=== PATIENT | male | born 1960 ===

== ENCOUNTER 2020-10-22 19:52 | Inpatient (IN) | payer OTHER ==
[2020-10-22] MEDS ORDERED: REMDESIVIR 200 MG in Sodium Chloride 0.9% 250 ML IV ONE (20:37)
[2020-10-22] MEDS ORDERED: Dexamethasone 10 MG/ML SDV IVPUSH STA (20:37)
--- NOTE | 2020-10-22 20:41 | EDM.PDOC ---
ED HPI GENERAL MEDICAL PROBLEM - General Chief Complaint: Respiratory Problem Stated Complaint: HAD COVID INFUSION TODAY-SOB Time Seen by Provider: 10/22/20 20:12 Source of Information: Reports: Patient History Limitations: Reports: No Limitations - History of Present Illness INITIAL COMMENTS - FREE TEXT/NARRATIVE: Mr. Camarillo is a very pleasant 60-year-old gentleman who states that he developed nasal congestion and fatigue on or about 10/14/2020. He subsequently developed a painful nonproductive cough and insomnia. He has been feeling dyspneic, even at rest dyspneic for the past 2 or 3 days. He has had nausea, vomiting, and watery diarrhea. No recent fever. No recent urinary symptoms. He states that he tested positive for the SARS-CoV-2 virus 6 days ago, on 10/16/2020. Since then, he states that he has not developed any new symptoms, but that his symptoms have progressively gotten worse. He was seen at the walk-in clinic earlier today, where, he states, his oxygen saturation was found to be in the 80s. He was given a pulse oximeter, but no supplemental oxygen. He was treated with an infusion of Regen-Cov before being discharged home with a prescription for a cough medicine which he states has not been helping with his cough. He states that he has been monitoring his oxygen saturation over the course of the day. When it got down to the 70s, he decided to come to the ED. Here in the ED, the patient's initial BP is found to be slight depressed at 123/57, with tachypnea of 28 rpm. He is afebrile, saturating 68% on room air, 90 to 92% on 6 L of oxygen per nasal cannula. He appears to have conversational dyspnea, but is not in respiratory distress at this time. Prior to last Wednesday, the patient denies having a recent fever, chills, sore throat, ear pain, nasal or sinus congestion, cough, dyspnea, chest pain, palpitations, nausea, vomiting, constipation, diarrhea, abdominal pain, urinary symptoms, recent weight gain or weight loss, recent bloody bowel movements or black bowel movements, recent joint aches, headaches, or rashes. The patient's PCP is LAILA Ryan. His Director Software is Dr. Yessica Stephens. He has not received a COVID vaccination. - Related Data Allergies Allergy/AdvReac Type Severity Reaction Status Date / Time No Known Allergies Allergy Verified 10/22/20 20:03 Home Meds: Home Meds Lisinopril 20 mg PO DAILY 01/29/15 [History] azaTHIOprine [Azathioprine] 100 mg PO BID 12/16/17 [History] Past Medical History Cardiovascular History: Reports: Hypertension Endocrine/Metabolic History: Reports: Obesity/BMI 30+ Immunologic History: Reports: Other (See Below) (Dermatomyositis) Oncologic (Cancer) History: Reports: Bladder (s/p TURBT, CTx, RTx) - Infectious Disease History Infectious Disease History: Reports: Novel Coronavirus (dx'd 10/16/2020) - Past Surgical History HEENT Surgical History: Reports: Oral Surgery (dental extractions) Male Surgical History: Reports: TURBT-Transurethral Resection of Bladder Tumor Social & Family History - Tobacco Use Tobacco Use Status *Q: Former Tobacco User Years of Tobacco use: 31 Packs/Tins Daily: 1.5 Month/Year Tobacco Last Used: Quit 2007 Tobacco Use Comment: Started smoking 1976 Second Hand Smoke Exposure: No - Alcohol Use Alcohol Use History: Yes Alcohol Use Frequency: Socially - Recreational Drug Use Recreational Drug Use: No - Living Situation & Occupation Living situation: Reports: , with Spouse Occupation: Employed ([employer]) ED ROS GENERAL - Review of Systems Review Of Systems: Comprehensive ROS is negative, except as noted in HPI. ED EXAM, GENERAL - Physical Exam Exam: See Below Exam Limited By: No Limitations General Appearance: Alert, WD/WN, Mild Distress (conversational dyspnea) Eye Exam: Bilateral Eye: EOMI, Normal Inspection Ears: Normal External Exam, Hearing Grossly Normal Nose: Normal Inspection Throat/Mouth: Normal Inspection, Normal Lips, Normal Voice, No Airway Compromise Head: Atraumatic, Normocephalic Neck: Normal Inspection, Full Range of Motion Respiratory/Chest: No Respiratory Distress, Lungs Clear, Normal Breath Sounds, No Accessory Muscle Use. No: Decreased Breath Sounds, Crackles, Rhonchi, Wheezing, Stridor, Prolonged Expiration Cardiovascular: Normal Peripheral Pulses, Regular Rate, Rhythm, No Edema, No Gallop, No JVD, No Murmur, No Rub Peripheral Pulses: 3+: Radial (L), Radial (R) GI/Abdominal: Normal Bowel Sounds, Soft, Non-Tender, No Organomegaly, No Distention, No Abnormal Bruit, No Mass Back Exam: Normal Inspection, Full Range of Motion, NT Extremities: Normal Inspection, Normal Range of Motion, No Pedal Edema, Normal Capillary Refill Neurological: Alert, Oriented, Normal Cognition, No Motor/Sensory Deficits Psychiatric: Normal Affect Skin Exam: Warm, Dry, Intact, Normal Color, No Rash #1 Interpretation EKG Date: 10/22/20 Time: 20:07 Rhythm: NSR Rate (Beats/Min): 87 [place]: Normal P-Wave: Present QRS: Other (Late transition) ST-T: Normal QT: Normal Comparison: NA - No Prior EKG Course - Vital Signs Last Recorded V/S: Last Vital Signs Temp 36.9 C 10/22/20 20:00 Pulse 89 10/22/20 20:00 Resp 28 H 10/22/20 20:00 BP 123/57 L 10/22/20 20:00 Pulse Ox 90 L 10/22/20 20:03 - Orders/Labs/Meds Orders: Active Orders 24 hr Category Date Time Status Antiembolic Devices [RC] PER UNIT ROUTINE Care 10/22/20 21:50 Active Cardiac Monitoring [RC] . DIRECTED Care 10/22/20 21:46 Active Nurse Communication: Isolation [RC] ASDIRECTED Care 10/22/20 21:47 Active Oxygen Therapy [RC] PRN Care 10/22/20 21:46 Active Positioning, Patient [RC] ASDIRECTED Care 10/22/20 21:49 Active RT Aerosol Therapy [RC] ASDIRECTED Care 10/22/20 21:50 Active RT Incentive Spirometry [RC] ASDIRECTED Care 10/22/20 21:46 Active RT Post Treatment Assessment [RC] Click to Edit Care 10/22/20 21:50 Active RT Pre-Treatment Assessment [RC] Click to Edit Care 10/22/20 21:50 Active Up With Assistance [RC] ASDIRECTED Care 10/22/20 21:46 Active VTE/DVT Education [RC] PER UNIT ROUTINE Care 10/22/20 21:46 Active Vital Signs [RC] Q4H Care 10/22/20 21:46 Active Respiratory Care Assess and Treatment [CONS] Routine Cons 10/22/20 21:46 Active Regular Diet [DIET] Diet 10/23/20 Breakfast Active Chest 1V Frontal [CR] Stat Exams 10/22/20 20:33 Taken BLOOD CULTURE [MREF] Stat Lab 10/22/20 21:05 Received BLOOD CULTURE [MREF] Stat Lab 10/22/20 21:10 Received C-REACTIVE PROTEIN [CHEM] AM Lab 10/23/20 05:11 Ordered CBC WITH AUTO DIFF [HEME] AM Lab 10/23/20 05:11 Ordered CMP [COMPREHENSIVE METABOLIC PN,CMP] [CHEM] AM Lab 10/23/20 05:11 Ordered DD [D-DIMER QUANTITATIVE] [COAG] AM Lab 10/23/20 05:11 Ordered MAGNESIUM [CHEM] AM Lab 10/23/20 05:11 Ordered PHOSPHORUS [CHEM] AM Lab 10/23/20 05:11 Ordered Acetaminophen [TylenoL] Med 10/22/20 21:46 Active 650 mg PO Q4H PRN Albuterol [Proventil HFA] Med 10/22/20 21:46 Active 2 gm INH Q2H PRN Albuterol/Ipratropium [DuoNeb 3.0-0.5 MG/3 ML] Med 10/22/20 21:46 Active 3 ml NEB Q4H PRN Melatonin Med 10/22/20 21:46 Active 6 mg PO BEDTIME PRN Ondansetron [Zofran] Med 10/22/20 21:46 Active 4 mg IV Q6H PRN Remdesivir 100 mg Med 10/23/20 22:00 Active Sodium Chloride 0.9% [Normal Saline] 100 ml IV Q24H dexAMETHasone [Decadron] Med 10/23/20 09:00 Active 6 mg IVPUSH DAILY Blood Culture x2 Reflex Set [OM.PC] Stat Oth 10/22/20 20:36 Ordered Isolation [COMM] Stat Oth 10/22/20 21:46 Ordered RT Acapella [RESPCARE] Routine Oth 10/22/20 21:46 Active Sequential Compression Device [OM.PC] Per Unit Routine Oth 10/22/20 21:47 Ordered Resuscitation Status Routine Resus Stat 10/22/20 21:46 Ordered Medication Orders Acetaminophen (Acetaminophen 325 Mg Tab) 650 mg PO Q4H PRN PRN Reason: Pain (Mild 1-3)/fever Albuterol (Albuterol 6.7 Gm Inhaler) 2 gm INH Q2H PRN PRN Reason: Shortness of Breath Albuterol/Ipratropium (Albuterol/Ipratropium 3.0-0.5 Mg/3 Ml Neb Soln) 3 ml NEB Q4H PRN PRN Reason: Shortness Of Breath/wheezing Dexamethasone (Dexamethasone 10 Mg/Ml Sdv) 6 mg IVPUSH DAILY STEFANIE Stop: 10/31/20 09:01 Remdesivir 100 mg/ Sodium (Chloride) 100 mls @ 100 mls/hr IV Q24H STEFANIE Stop: 10/26/20 22:59 Melatonin (Melatonin 3 Mg Tab) 6 mg PO BEDTIME PRN PRN Reason: Insomnia Ondansetron HCl (Ondansetron 4 Mg/2 Ml Sdv) 4 mg IV Q6H PRN PRN Reason: Nausea/Vomiting Labs: Laboratory Tests 10/22/20 10/22/20 10/22/20 Range/Units 20:08 20:08 20:08 WBC 5.37 (4.23-9.07) K/mm3 RBC 4.97 (4.63-6.08) M/mm3 Hgb 16.3 (13.7-17.5) gm/dl Hct 48.3 (40.1-51.0) % MCV 97.2 H (79.0-92.2) fl MCH 32.8 H (25.7-32.2) pg MCHC 33.7 (32.2-35.5) g/dl RDW Std Deviation 44.5 H (35.1-43.9) fL Plt Count 91 L (163-337) K/mm3 MPV 11.0 (9.4-12.3) fl Neutrophils % (Manual) 82 H (40-60) % Band Neutrophils % 4 (0-10) % Lymphocytes % (Manual) 9 L (20-40) % Atypical Lymphs % 0 % Monocytes % (Manual) 5 (2-10) % Eosinophils % (Manual) 0 L (0.8-7.0) % Basophils % (Manual) 0 L (0.2-1.2) Platelet Estimate Decreased RBC Morph Comment Normal D-Dimer, Quantitative 0.63 H (0.19-0.50) mg/L Puncture Site ABG pH (7.35-7.45) ABG pCO2 (35.0-45.0) mmHg ABG pO2 (80.0-100.0) mmHg ABG HCO3 (22.0-26.0) meq/L ABG O2 Saturation (96.0-97.0) % ABG Base Excess (-2-2.0) A-a Gradient mmHg O2 Delivery Device Oxygen Flow Rate FiO2 (21.00-100.00) % Sodium 131 L (136-145) mEq/L Potassium 4.0 (3.5-5.1) mEq/L Chloride 96 L (98-107) mEq/L Carbon Dioxide 27 (21-32) mEq/L Anion Gap 12.0 (5-15) BUN 20 H (7-18) mg/dL Creatinine 1.2 (0.7-1.3) mg/dL Est Cr Clr Drug Dosing 74.91 mL/min Estimated GFR (MDRD) > 60 (>60) mL/min BUN/Creatinine Ratio 16.7 (14-18) Glucose 114 H (70-99) mg/dL Lactic Acid (0.4-2.0) mmol/L Calcium 8.2 L (8.5-10.1) mg/dL Magnesium 1.9 (1.8-2.4) mg/dL Total Bilirubin 0.6 (0.2-1.0) mg/dL AST 67 H (15-37) U/L ALT 48 (16-63) U/L Alkaline Phosphatase 49 (46-116) U/L Troponin I < 0.017 (0.00-0.056) ng/mL C-Reactive Protein 8.6 H* (<1.0) mg/dL NT-Pro-B Natriuret Pep (0-125) pg/mL Total Protein 7.0 (6.4-8.2) g/dl Albumin 3.0 L (3.4-5.0) g/dl Globulin 4.0 gm/dL Albumin/Globulin Ratio 0.8 L (1-2) 10/22/20 10/22/20 10/22/20 Range/Units 20:08 21:05 21:32 WBC (4.23-9.07) K/mm3 RBC (4.63-6.08) M/mm3 Hgb (13.7-17.5) gm/dl Hct (40.1-51.0) % MCV (79.0-92.2) fl MCH (25.7-32.2) pg MCHC (32.2-35.5) g/dl RDW Std Deviation (35.1-43.9) fL Plt Count (163-337) K/mm3 MPV (9.4-12.3) fl Neutrophils % (Manual) (40-60) % Band Neutrophils % (0-10) % Lymphocytes % (Manual) (20-40) % Atypical Lymphs % % Monocytes % (Manual) (2-10) % Eosinophils % (Manual) (0.8-7.0) % Basophils % (Manual) (0.2-1.2) Platelet Estimate RBC Morph Comment D-Dimer, Quantitative (0.19-0.50) mg/L Puncture Site Lt radial ABG pH 7.48 H (7.35-7.45) ABG pCO2 30.3 L (35.0-45.0) mmHg ABG pO2 68.0 L (80.0-100.0) mmHg ABG HCO3 22.1 (22.0-26.0) meq/L ABG O2 Saturation 93.5 L (96.0-97.0) % ABG Base Excess 0.0 (-2-2.0) A-a Gradient 208 mmHg O2 Delivery Device Nasal cannula Oxygen Flow Rate 6.0 FiO2 44.00 (21.00-100.00) % Sodium (136-145) mEq/L Potassium (3.5-5.1) mEq/L Chloride (98-107) mEq/L Carbon Dioxide (21-32) mEq/L Anion Gap (5-15) BUN (7-18) mg/dL Creatinine (0.7-1.3) mg/dL Est Cr Clr Drug Dosing mL/min Estimated GFR (MDRD) (>60) mL/min BUN/Creatinine Ratio (14-18) Glucose (70-99) mg/dL Lactic Acid 1.3 (0.4-2.0) mmol/L Calcium (8.5-10.1) mg/dL Magnesium (1.8-2.4) mg/dL Total Bilirubin (0.2-1.0) mg/dL AST (15-37) U/L ALT (16-63) U/L Alkaline Phosphatase (46-116) U/L Troponin I (0.00-0.056) ng/mL C-Reactive Protein (<1.0) mg/dL NT-Pro-B Natriuret Pep 249 H (0-125) pg/mL Total Protein (6.4-8.2) g/dl Albumin (3.4-5.0) g/dl Globulin gm/dL Albumin/Globulin Ratio (1-2) Meds: Medications Generic Name Dose Route Start Last Admin Trade Name Valentin PRN Reason Stop Dose Admin Acetaminophen 650 mg 10/22/20 21:46 Acetaminophen 325 Mg Tab PO Q4H PRN Pain (Mild 1-3)/fever Albuterol 2 gm 10/22/20 21:46 Albuterol 6.7 Gm Inhaler INH Q2H PRN Shortness of Breath Albuterol/Ipratropium 3 ml 10/22/20 21:46 Albuterol/Ipratropium 3.0-0.5 Mg/3 Ml Neb Soln NEB Q4H PRN Shortness Of Breath/wheezing Dexamethasone 6 mg 10/23/20 09:00 Dexamethasone 10 Mg/Ml Sdv IVPUSH 10/31/20 09:01 DAILY STEFANIE Remdesivir 100 mg/ Sodium 100 mls @ 100 mls/hr 10/23/20 22:00 Chloride IV 10/26/20 22:59 Q24H STEFANIE Melatonin 6 mg 10/22/20 21:46 Melatonin 3 Mg Tab PO BEDTIME PRN Insomnia Ondansetron HCl 4 mg 10/22/20 21:46 Ondansetron 4 Mg/2 Ml Sdv IV Q6H PRN Nausea/Vomiting Discontinued Medications Generic Name Dose Route Start Last Admin Trade Name Valentin PRN Reason Stop Dose Admin Dexamethasone 6 mg 10/22/20 20:37 10/22/20 21:19 Dexamethasone 10 Mg/Ml Sdv IVPUSH 10/22/20 20:38 6 mg ONETIME STA Administration Remdesivir 200 mg/ Sodium 250 mls @ 250 mls/hr 10/22/20 20:37 10/22/20 21:19 Chloride IV 10/22/20 20:38 250 mls/hr ONETIME ONE Administration - Re-Assessments/Exams Free Text/Narrative Re-Assessment/Exam: 10/22/20 20:40 The patient will require hospitalization. An ECG, obtained at triage, shows no ischemic changes. Case discussed with Dr. Kiran at 20:29. He accepted the patient for admission to the medical floor. He recommended that we proceed with dexamethasone and remdesivir. I will order some standard labs as a baseline, including several blood tests, 2 sets of blood cultures, an ABG, and a portable chest x-ray. 10/22/20 21:27 Portable chest radiograph reviewed. The cardiac silhouette is within normal limits. No pulmonary vascular congestion. No pleural effusions seen on this AP view. There are bilateral hazy infiltrates, worse at the bases than the apices, consistent with COVID-19 pneumonia. No pneumothorax. Formal read per the Radiologist pending. 10/22/20 22:33 The patient's CBC is remarkable for thrombocytopenia of 91,000, and is otherwise unremarkable. His CMP is remarkable for mild hyponatremia of 131, a BUN slightly elevated at 20 with a Cr normal at 1.2, and mild hyperglycemia of 114, with remainder of his CMP being unremarkable. His magnesium level is within normal limits at 1.9. His lactic acid level is within normal is at 1.3. His CRP is elevated at 8.6. His troponin is undetectably low. His pro-BNP is mildly elevated at 249. His D-dimer is mildly elevated at 0.63. His ABG demonstrates a respiratory alkalosis with compensatory metabolic acidosis. Departure - Departure Time of Disposition: 20:41 Disposition: Admitted As Inpatient 67 Condition: Serious Clinical Impression: COVID-19 - Discharge Information *PRESCRIPTION DRUG MONITORING PROGRAM REVIEWED*: Not Applicable *COPY OF PRESCRIPTION DRUG MONITORING REPORT IN PATIENT GILBERTO: Not Applicable Sepsis Event Note (ED) - Evaluation Sepsis Screening Result: Possible Sepsis Risk - Focused Exam Vital Signs: Vital Signs Temp Pulse Resp BP Pulse Ox Pulse Ox 10/22/20 20:03 90 L 10/22/20 20:00 36.9 C 89 28 H 123/57 L 68 L - My Orders Last 24 Hours: My Active Orders 10/22/20 20:33 Chest 1V Frontal [CR] Stat 10/22/20 20:36 Blood Culture x2 Reflex Set [OM.PC] Stat 10/22/20 21:05 BLOOD CULTURE [MREF] Stat 10/22/20 21:10 BLOOD CULTURE [MREF] Stat - Assessment/Plan Last 24 Hours: My Active Orders 10/22/20 20:33 Chest 1V Frontal [CR] Stat 10/22/20 20:36 Blood Culture x2 Reflex Set [OM.PC] Stat 10/22/20 21:05 BLOOD CULTURE [MREF] Stat 10/22/20 21:10 BLOOD CULTURE [MREF] Stat
[2020-10-22] MEDS ORDERED: Albuterol 6.7 GM Inhaler INH PRN (21:46)
[2020-10-22] MEDS ORDERED: Ondansetron 4 MG/2 ML SDV IV PRN (21:46)
[2020-10-22] MEDS: Aluminum Hydroxide/Magnesium Hydroxide/Simethicone Susp 30 ML Cup PO PRN (23:13)
--- NOTE | 2020-10-23 07:07 | PCM.HP.2 ---
H&P History of Present Illness - General Date of Service: 10/23/20 Admit Problem/Dx: Admission Diagnosis/Problem Admission Diagnosis/Problem Hypoxia Source of Information: Patient, Old Records, Provider, RN, RN Notes Reviewed History Limitations: Reports: No Limitations - Related Data Allergies/Adverse Reactions: Allergies Allergy/AdvReac Type Severity Reaction Status Date / Time No Known Allergies Allergy Verified 10/22/20 20:03 Home Medications: Home Meds Lisinopril 20 mg PO DAILY 01/29/15 [History] azaTHIOprine [Azathioprine] 100 mg PO BID 12/16/17 [History] Fish Oil/DHA/EPA [Fish Oil 1,200 MG] 1 cap PO BEDTIME 10/23/20 [History] Glucos Sul 2Kcl/MSM/Chond/C/Mn [Glucosamine Chondroitin Cap] 2 each PO BEDTIME 10/23/20 [History] Sod Phos Di, Bates/K Phos Bates [Phosphorous 250 mg Tablet] 250 mg PO DAILY 10/23/20 [History] Past Medical History HEENT History: Reports: Other (See Below) Other HEENT History: Pt has prescription reading glasses, not with pt Cardiovascular History: Reports: Hypertension Gastrointestinal History: Reports: Gastritis Musculoskeletal History: Reports: Other (See Below) Other Musculoskeletal History: myopathy Endocrine/Metabolic History: Reports: Obesity/BMI 30+ Immunologic History: Reports: Other (See Below) Other Immunologic History: dermatomyositis Oncologic (Cancer) History: Reports: Bladder Other Oncologic History: radation and chemo - Infectious Disease History Infectious Disease History: Reports: Novel Coronavirus - Past Surgical History HEENT Surgical History: Reports: Oral Surgery Male Surgical History: Reports: TURBT-Transurethral Resection of Bladder Tumor Social & Family History - Family History Family Medical History: Unobtainable - Tobacco Use Tobacco Use Status *Q: Former Tobacco User Years of Tobacco use: 31 Packs/Tins Daily: 1.5 Used Tobacco, but Quit: Yes Month/Year Tobacco Last Used: 2007 Tobacco Use Comment: Started smoking 1976 Second Hand Smoke Exposure: No - Caffeine Use Caffeine Use: Reports: Coffee Caffeine Use Comment: 1 cup coffee - Alcohol Use Days Per Week of Alcohol Use: 7 Number of Drinks Per Day: 2 Total Drinks Per Week: 14 Date of Last Drink: 10/19/20 Time of Last Drink: 21:00 - Recreational Drug Use Recreational Drug Use: No - Living Situation & Occupation Living situation: Reports: , with Spouse Occupation: Employed ([employer]) Exam - Vital Signs Vital Signs: Last Vital Signs Temp 98.2 F 10/23/20 04:43 Pulse 66 10/23/20 04:43 Resp 28 H 10/23/20 04:43 BP 113/64 10/23/20 04:43 Pulse Ox 88 L 10/23/20 06:13 Weight: 241 lb 12.8 oz - Patient Data Lab Results Last 24 hrs: Laboratory Results - last 24 hr 10/22/20 10/22/20 10/22/20 Range/Units 20:08 20:08 20:08 WBC 5.37 (4.23-9.07) K/mm3 RBC 4.97 (4.63-6.08) M/mm3 Hgb 16.3 (13.7-17.5) gm/dl Hct 48.3 (40.1-51.0) % MCV 97.2 H (79.0-92.2) fl MCH 32.8 H (25.7-32.2) pg MCHC 33.7 (32.2-35.5) g/dl RDW Std Deviation 44.5 H (35.1-43.9) fL Plt Count 91 L (163-337) K/mm3 MPV 11.0 (9.4-12.3) fl Neut % (Auto) (34.0-67.9) % Lymph % (Auto) (21.8-53.1) % Bates % (Auto) (5.3-12.2) % Eos % (Auto) (0.8-7.0) Baso % (Auto) (0.1-1.2) % Neut # (Auto) (1.78-5.38) K/mm3 Lymph # (Auto) (1.32-3.57) K/mm3 Bates # (Auto) (0.30-0.82) K/mm3 Eos # (Auto) (0.04-0.54) K/mm3 Baso # (Auto) (0.01-0.08) K/mm3 Neutrophils % (Manual) 82 H (40-60) % Band Neutrophils % 4 (0-10) % Lymphocytes % (Manual) 9 L (20-40) % Atypical Lymphs % 0 % Monocytes % (Manual) 5 (2-10) % Eosinophils % (Manual) 0 L (0.8-7.0) % Basophils % (Manual) 0 L (0.2-1.2) Manual Slide Review Platelet Estimate Decreased RBC Morph Comment Normal D-Dimer, Quantitative 0.63 H (0.19-0.50) mg/L Puncture Site ABG pH (7.35-7.45) ABG pCO2 (35.0-45.0) mmHg ABG pO2 (80.0-100.0) mmHg ABG HCO3 (22.0-26.0) meq/L ABG O2 Saturation (96.0-97.0) % ABG Base Excess (-2-2.0) A-a Gradient mmHg O2 Delivery Device Oxygen Flow Rate FiO2 (21.00-100.00) % Sodium 131 L (136-145) mEq/L Potassium 4.0 (3.5-5.1) mEq/L Chloride 96 L (98-107) mEq/L Carbon Dioxide 27 (21-32) mEq/L Anion Gap 12.0 (5-15) BUN 20 H (7-18) mg/dL Creatinine 1.2 (0.7-1.3) mg/dL Est Cr Clr Drug Dosing 74.91 mL/min Estimated GFR (MDRD) > 60 (>60) mL/min BUN/Creatinine Ratio 16.7 (14-18) Glucose 114 H (70-99) mg/dL Lactic Acid (0.4-2.0) mmol/L Calcium 8.2 L (8.5-10.1) mg/dL Phosphorus (2.6-4.7) mg/dL Magnesium 1.9 (1.8-2.4) mg/dL Total Bilirubin 0.6 (0.2-1.0) mg/dL AST 67 H (15-37) U/L ALT 48 (16-63) U/L Alkaline Phosphatase 49 (46-116) U/L Troponin I < 0.017 (0.00-0.056) ng/mL C-Reactive Protein 8.6 H* (<1.0) mg/dL NT-Pro-B Natriuret Pep (0-125) pg/mL Total Protein 7.0 (6.4-8.2) g/dl Albumin 3.0 L (3.4-5.0) g/dl Globulin 4.0 gm/dL Albumin/Globulin Ratio 0.8 L (1-2) 10/22/20 10/22/20 10/22/20 Range/Units 20:08 21:05 21:32 WBC (4.23-9.07) K/mm3 RBC (4.63-6.08) M/mm3 Hgb (13.7-17.5) gm/dl Hct (40.1-51.0) % MCV (79.0-92.2) fl MCH (25.7-32.2) pg MCHC (32.2-35.5) g/dl RDW Std Deviation (35.1-43.9) fL Plt Count (163-337) K/mm3 MPV (9.4-12.3) fl Neut % (Auto) (34.0-67.9) % Lymph % (Auto) (21.8-53.1) % Bates % (Auto) (5.3-12.2) % Eos % (Auto) (0.8-7.0) Baso % (Auto) (0.1-1.2) % Neut # (Auto) (1.78-5.38) K/mm3 Lymph # (Auto) (1.32-3.57) K/mm3 Bates # (Auto) (0.30-0.82) K/mm3 Eos # (Auto) (0.04-0.54) K/mm3 Baso # (Auto) (0.01-0.08) K/mm3 Neutrophils % (Manual) (40-60) % Band Neutrophils % (0-10) % Lymphocytes % (Manual) (20-40) % Atypical Lymphs % % Monocytes % (Manual) (2-10) % Eosinophils % (Manual) (0.8-7.0) % Basophils % (Manual) (0.2-1.2) Manual Slide Review Platelet Estimate RBC Morph Comment D-Dimer, Quantitative (0.19-0.50) mg/L Puncture Site Lt radial ABG pH 7.48 H (7.35-7.45) ABG pCO2 30.3 L (35.0-45.0) mmHg ABG pO2 68.0 L (80.0-100.0) mmHg ABG HCO3 22.1 (22.0-26.0) meq/L ABG O2 Saturation 93.5 L (96.0-97.0) % ABG Base Excess 0.0 (-2-2.0) A-a Gradient 208 mmHg O2 Delivery Device Nasal cannula Oxygen Flow Rate 6.0 FiO2 44.00 (21.00-100.00) % Sodium (136-145) mEq/L Potassium (3.5-5.1) mEq/L Chloride (98-107) mEq/L Carbon Dioxide (21-32) mEq/L Anion Gap (5-15) BUN (7-18) mg/dL Creatinine (0.7-1.3) mg/dL Est Cr Clr Drug Dosing mL/min Estimated GFR (MDRD) (>60) mL/min BUN/Creatinine Ratio (14-18) Glucose (70-99) mg/dL Lactic Acid 1.3 (0.4-2.0) mmol/L Calcium (8.5-10.1) mg/dL Phosphorus (2.6-4.7) mg/dL Magnesium (1.8-2.4) mg/dL Total Bilirubin (0.2-1.0) mg/dL AST (15-37) U/L ALT (16-63) U/L Alkaline Phosphatase (46-116) U/L Troponin I (0.00-0.056) ng/mL C-Reactive Protein (<1.0) mg/dL NT-Pro-B Natriuret Pep 249 H (0-125) pg/mL Total Protein (6.4-8.2) g/dl Albumin (3.4-5.0) g/dl Globulin gm/dL Albumin/Globulin Ratio (1-2) 10/23/20 10/23/20 10/23/20 Range/Units 04:35 04:35 04:35 WBC 5.23 (4.23-9.07) K/mm3 RBC 4.54 L (4.63-6.08) M/mm3 Hgb 14.9 (13.7-17.5) gm/dl Hct 44.2 (40.1-51.0) % MCV 97.4 H (79.0-92.2) fl MCH 32.8 H (25.7-32.2) pg MCHC 33.7 (32.2-35.5) g/dl RDW Std Deviation 44.0 H (35.1-43.9) fL Plt Count 84 L (163-337) K/mm3 MPV 11.1 (9.4-12.3) fl Neut % (Auto) 89.1 H (34.0-67.9) % Lymph % (Auto) 5.7 L (21.8-53.1) % Bates % (Auto) 4.8 L (5.3-12.2) % Eos % (Auto) 0 L (0.8-7.0) Baso % (Auto) 0.0 L (0.1-1.2) % Neut # (Auto) 4.66 (1.78-5.38) K/mm3 Lymph # (Auto) 0.30 L (1.32-3.57) K/mm3 Bates # (Auto) 0.25 L (0.30-0.82) K/mm3 Eos # (Auto) 0.00 L (0.04-0.54) K/mm3 Baso # (Auto) 0.00 L (0.01-0.08) K/mm3 Neutrophils % (Manual) (40-60) % Band Neutrophils % (0-10) % Lymphocytes % (Manual) (20-40) % Atypical Lymphs % % Monocytes % (Manual) (2-10) % Eosinophils % (Manual) (0.8-7.0) % Basophils % (Manual) (0.2-1.2) Manual Slide Review Abnormal smear Platelet Estimate RBC Morph Comment D-Dimer, Quantitative 0.50 (0.19-0.50) mg/L Puncture Site ABG pH (7.35-7.45) ABG pCO2 (35.0-45.0) mmHg ABG pO2 (80.0-100.0) mmHg ABG HCO3 (22.0-26.0) meq/L ABG O2 Saturation (96.0-97.0) % ABG Base Excess (-2-2.0) A-a Gradient mmHg O2 Delivery Device Oxygen Flow Rate FiO2 (21.00-100.00) % Sodium 135 L (136-145) mEq/L Potassium 4.0 (3.5-5.1) mEq/L Chloride 99 (98-107) mEq/L Carbon Dioxide 25 (21-32) mEq/L Anion Gap 15.0 (5-15) BUN 18 (7-18) mg/dL Creatinine 1.0 (0.7-1.3) mg/dL Est Cr Clr Drug Dosing 89.89 mL/min Estimated GFR (MDRD) > 60 (>60) mL/min BUN/Creatinine Ratio 18.0 (14-18) Glucose 134 H (70-99) mg/dL Lactic Acid (0.4-2.0) mmol/L Calcium 7.7 L (8.5-10.1) mg/dL Phosphorus 3.6 (2.6-4.7) mg/dL Magnesium 2.0 (1.8-2.4) mg/dL Total Bilirubin 0.6 (0.2-1.0) mg/dL AST 53 H (15-37) U/L ALT 38 (16-63) U/L Alkaline Phosphatase 38 L (46-116) U/L Troponin I (0.00-0.056) ng/mL C-Reactive Protein 10.5 H* (<1.0) mg/dL NT-Pro-B Natriuret Pep (0-125) pg/mL Total Protein 6.3 L (6.4-8.2) g/dl Albumin 2.5 L (3.4-5.0) g/dl Globulin 3.8 gm/dL Albumin/Globulin Ratio 0.7 L (1-2) Result Diagrams: 10/23/20 04:35 10/23/20 04:35 Sepsis Event Note - Evaluation Sepsis Screening Result: Possible Sepsis Risk - Focused Exam Vital Signs: Vital Signs Temp Temp Pulse Pulse Resp BP BP 10/23/20 06:13 10/23/20 04:43 98.2 F 66 28 H 113/64 10/22/20 22:36 100.8 F H 78 32 H 93/56 L 10/22/20 22:15 78 41 H 10/22/20 22:00 79 37 H 101/52 L 10/22/20 21:45 79 37 H 101/52 L 10/22/20 21:30 82 36 H 110/54 L 10/22/20 21:15 86 36 H 103/61 10/22/20 20:03 10/22/20 20:00 98.4 F 89 28 H 123/57 L Pulse Ox Pulse Ox 09/08/21 06:13 88 L 10/23/20 04:43 89 L 10/22/20 22:36 90 L 10/22/20 22:15 96 10/22/20 22:00 95 10/22/20 21:45 95 10/22/20 21:30 92 L 10/22/20 21:15 92 L 10/22/20 20:03 90 L 10/22/20 20:00 68 L Orders Last 24hrs: Active Orders 24 hr Category Date Time Status Patient Status [ADT] Routine ADT 10/22/20 21:54 Active Antiembolic Devices [RC] BID Care 10/22/20 21:50 Active Cardiac Monitoring [RC] . DIRECTED Care 10/22/20 21:46 Active Oxygen Therapy [RC] PRN Care 10/22/20 21:46 Active Positioning, Patient [RC] BID Care 10/22/20 21:49 Active RT Aerosol Therapy [RC] ASDIRECTED Care 10/22/20 21:50 Active RT Incentive Spirometry [RC] Q1HWA Care 10/22/20 21:46 Active RT Post Treatment Assessment [RC] Click to Edit Care 10/22/20 21:50 Active RT Pre-Treatment Assessment [RC] Click to Edit Care 10/22/20 21:50 Active Up With Assistance [RC] BID Care 10/22/20 21:46 Active VTE/DVT Education [RC] DAILY Care 10/22/20 21:46 Active Vital Signs [RC] Q4HR Care 10/22/20 21:46 Active Respiratory Care Assess and Treatment [CONS] Routine Cons 10/22/20 21:46 Active Regular Diet [DIET] Diet 10/23/20 Breakfast Active Chest 1V Frontal [CR] Stat Exams 10/22/20 20:33 Taken BLOOD CULTURE [MREF] Stat Lab 10/22/20 21:05 Received BLOOD CULTURE [MREF] Stat Lab 10/22/20 21:10 Received Acetaminophen [TylenoL] Med 10/22/20 21:46 Active 650 mg PO Q4H PRN Albuterol [Proventil HFA] Med 10/22/20 21:46 Active 2 gm INH Q2H PRN Albuterol/Ipratropium [DuoNeb 3.0-0.5 MG/3 ML] Med 10/22/20 21:46 Active 3 ml NEB Q4H PRN Alum Hydrox/Mag Hydrox/Simeth [Mag-Al Plus] Med 10/22/20 23:05 Active 30 ml PO Q4H PRN Melatonin Med 10/22/20 21:46 Active 6 mg PO BEDTIME PRN Ondansetron [Zofran] Med 10/22/20 21:46 Active 4 mg IV Q6H PRN Remdesivir 100 mg Med 10/23/20 22:00 Active Sodium Chloride 0.9% [Normal Saline] 100 ml IV Q24H dexAMETHasone [Decadron] Med 10/23/20 21:00 Active 6 mg IVPUSH Q24H Blood Culture x2 Reflex Set [OM.PC] Stat Oth 10/22/20 20:36 Ordered Isolation [COMM] Stat Oth 10/22/20 21:46 Ordered RT Acapella [RESPCARE] Routine Oth 10/22/20 21:46 Active Sequential Compression Device [OM.PC] Per Unit Routine Oth 10/22/20 21:47 Ordered Resuscitation Status Routine Resus Stat 10/22/20 21:46 Ordered Medication Orders Acetaminophen (Acetaminophen 325 Mg Tab) 650 mg PO Q4H PRN PRN Reason: Pain (Mild 1-3)/fever Al Hydroxide/Mg Hydroxide (Aluminum Hydroxide/Magnesium Hydroxide/Simethicone Susp 30 Ml Cup) 30 ml PO Q4H PRN PRN Reason: Heartburn Last Admin: 10/22/20 23:13 Dose: 30 ml Documented by: BRADJUL Albuterol (Albuterol 6.7 Gm Inhaler) 2 gm INH Q2H PRN PRN Reason: Shortness of Breath Albuterol/Ipratropium (Albuterol/Ipratropium 3.0-0.5 Mg/3 Ml Neb Soln) 3 ml NEB Q4H PRN PRN Reason: Shortness Of Breath/wheezing Dexamethasone (Dexamethasone 10 Mg/Ml Sdv) 6 mg IVPUSH Q24H STEFANIE Stop: 10/31/20 21:01 Remdesivir 100 mg/ Sodium (Chloride) 100 mls @ 100 mls/hr IV Q24H STEFANIE Stop: 10/26/20 22:59 Melatonin (Melatonin 3 Mg Tab) 6 mg PO BEDTIME PRN PRN Reason: Insomnia Ondansetron HCl (Ondansetron 4 Mg/2 Ml Sdv) 4 mg IV Q6H PRN PRN Reason: Nausea/Vomiting
--- NOTE | 2020-10-23 07:35 | CR ---
Chest: Portable view of the chest was obtained. Comparison: Prior chest x-ray of 01/15/15. Heart size is within normal limits. Tortuous thoracic aorta is seen. Lung markings are diffusely increased which are an interval change from prior exam. Bony structures show nothing acute. Impression: 1. Diffuse increased lung markings from prior exam. Uncertain if this represents diffuse groundglass COVID pneumonia or other forms of bronchitis or pulmonary vascular congestion. Diagnostic code #3
[2020-10-23] MEDS: Dexamethasone 4 MG Tab PO SCH (08:39)
[2020-10-23] MEDS: Famotidine 20 MG Tab PO SCH ×2 (08:39→21:03)
[2020-10-23] MEDS: Zinc Sulfate 220 MG Cap PO SCH (08:39)
--- NOTE | 2020-10-23 08:48 | PCM.HP.2 ---
H&P History of Present Illness - General Date of Service: 10/23/20 Admit Problem/Dx: Admission Diagnosis/Problem Admission Diagnosis/Problem Hypoxia - History of Present Illness Initial Comments - Free Text/Narative: 60-year-old male presents to the emergency department with decreasing oxygen saturation. Patient was seen at the walk-in clinic today and told his oxygen saturations were low in the 80s, given Regeneron, and told to follow his oxygen saturations. When patient was unable to keep his oxygen saturations above 80% he presented to the emergency department. Patient first had symptoms proximally 1 week ago and was diagnosed with COVID-19 on 10/14/2020. Initially he thought he had a sinus infection that worsened to a nonproductive cough, dyspnea, fever, nausea, vomiting, and watery diarrhea. When he presented to the emergency department his oxygen saturations were in the upper 60s to low 70s. He was placed on 6 L of oxygen via nasal cannula with oxygen saturations of 90 to 92%. Patient is able to hold on a conversation but became dyspneic with short sentences. In the emergency department patient was found to be afebrile with tachypnea. Blood pressure was 123/57 with a heart rate of 89. Oxygen saturations as above. Pertinent positives on laboratory studies were D-dimer of 0.63, sodium of 131, CRP 8.6, albumin 3.0, and proBNP of 249. Pertinent negatives included lactic acid of 1.3, troponin I less than 0.017. ABG pH 7.48, PCO2 30.3, PO2 68, bicarb 22.1, on 6 L nasal cannula. EKG showed normal sinus rhythm with late transition, heart rate of 87. Chest x-ray showed diffuse increased lung markings consistent with diffuse groundglass COVID-19 pneumonia. - Related Data Allergies/Adverse Reactions: Allergies Allergy/AdvReac Type Severity Reaction Status Date / Time No Known Allergies Allergy Verified 10/22/20 20:03 Home Medications: Home Meds Lisinopril 20 mg PO DAILY 01/29/15 [History] azaTHIOprine [Azathioprine] 100 mg PO BID 12/16/17 [History] Fish Oil/DHA/EPA [Fish Oil 1,200 MG] 1 cap PO BEDTIME 10/23/20 [History] Glucos Sul 2Kcl/MSM/Chond/C/Mn [Glucosamine Chondroitin Cap] 2 each PO BEDTIME 10/23/20 [History] Sod Phos Di, [place]/K Phos [place] [Phosphorous 250 mg Tablet] 250 mg PO DAILY 10/23/20 [History] Past Medical History HEENT History: Reports: Other (See Below) Other HEENT History: Pt has prescription reading glasses, not with pt Cardiovascular History: Reports: Hypertension Gastrointestinal History: Reports: Gastritis Musculoskeletal History: Reports: Other (See Below) Other Musculoskeletal History: myopathy Endocrine/Metabolic History: Reports: Obesity/BMI 30+ Immunologic History: Reports: Other (See Below) Other Immunologic History: dermatomyositis Oncologic (Cancer) History: Reports: Bladder Other Oncologic History: radation and chemo - Infectious Disease History Infectious Disease History: Reports: Novel Coronavirus - Past Surgical History HEENT Surgical History: Reports: Oral Surgery Male Surgical History: Reports: TURBT-Transurethral Resection of Bladder Tumo r Social & Family History - Family History Family Medical History: Unobtainable - Tobacco Use Tobacco Use Status *Q: Former Tobacco User Years of Tobacco use: 31 Packs/Tins Daily: 1.5 Used Tobacco, but Quit: Yes Month/Year Tobacco Last Used: 2007 Tobacco Use Comment: Started smoking 1976 Second Hand Smoke Exposure: No - Caffeine Use Caffeine Use: Reports: Coffee Caffeine Use Comment: 1 cup coffee - Alcohol Use Days Per Week of Alcohol Use: 7 Number of Drinks Per Day: 2 Total Drinks Per Week: 14 Date of Last Drink: 10/19/20 Time of Last Drink: 21:00 - Recreational Drug Use Recreational Drug Use: No - Living Situation & Occupation Living situation: Reports: , with Spouse Occupation: Employed ([employer]) H&P Review of Systems - Review of Systems: Review Of Systems: Comprehensive ROS is negative, except as noted in HPI. Exam - Exam Exam: See Below - Vital Signs Vital Signs: Last Vital Signs Temp 98.2 F 10/23/20 07:30 Pulse 63 10/23/20 07:30 Resp 20 10/23/20 07:30 BP 109/69 10/23/20 07:30 Pulse Ox 95 10/23/20 07:30 Weight: 241 lb 12.8 oz - Exam Quality Assessment: Supplemental Oxygen General: Alert, Oriented, 4 HEENT: Conjunctiva Clear, Hearing Intact, Mucosa Moist & [place] Neck: Supple, Trachea Midline, 2 Lungs: Crackles (Bibasilar). No: Normal Respiratory Effort (Increased respiratory effort with increased rate) Cardiovascular: Regular Rate, Regular Rhythm GI/Abdominal Exam: Normal Bowel Sounds, Soft, Non-Tender, No Organomegaly, No Distention Extremities: Normal Inspection, Normal Range of Motion, Non-Tender, No Pedal Edema, Normal Capillary Refill Skin: Warm, Dry, Intact Neuro Extensive - Mental Status: Alert, Oriented x3, Normal Mood/Affect, Normal Cognition, Memory Intact Neuro Extensive - Motor, Sensory, Reflexes: CN II-XII Intact Psychiatric: Alert, Normal Affect, Normal Mood - Patient Data Lab Results Last 24 hrs: Laboratory Results - last 24 hr 10/22/20 10/22/20 10/22/20 Range/Units 20:08 20:08 20:08 WBC 5.37 (4.23-9.07) K/mm3 RBC 4.97 (4.63-6.08) M/mm3 Hgb 16.3 (13.7-17.5) gm/dl Hct 48.3 (40.1-51.0) % MCV 97.2 H (79.0-92.2) fl MCH 32.8 H (25.7-32.2) pg MCHC 33.7 (32.2-35.5) g/dl RDW Std Deviation 44.5 H (35.1-43.9) fL Plt Count 91 L (163-337) K/mm3 MPV 11.0 (9.4-12.3) fl Neut % (Auto) (34.0-67.9) % Lymph % (Auto) (21.8-53.1) % [place] % (Auto) (5.3-12.2) % Eos % (Auto) (0.8-7.0) Baso % (Auto) (0.1-1.2) % Neut # (Auto) (1.78-5.38) K/mm3 Lymph # (Auto) (1.32-3.57) K/mm3 [place] # (Auto) (0.30-0.82) K/mm3 Eos # (Auto) (0.04-0.54) K/mm3 Baso # (Auto) (0.01-0.08) K/mm3 Neutrophils % (Manual) 82 H (40-60) % Band Neutrophils % 4 (0-10) % Lymphocytes % (Manual) 9 L (20-40) % Atypical Lymphs % 0 % Monocytes % (Manual) 5 (2-10) % Eosinophils % (Manual) 0 L (0.8-7.0) % Basophils % (Manual) 0 L (0.2-1.2) Manual Slide Review Platelet Estimate Decreased RBC Morph Comment Normal D-Dimer, Quantitative 0.63 H (0.19-0.50) mg/L Puncture Site ABG pH (7.35-7.45) ABG pCO2 (35.0-45.0) mmHg ABG pO2 (80.0-100.0) mmHg ABG HCO3 (22.0-26.0) meq/L ABG O2 Saturation (96.0-97.0) % ABG Base Excess (-2-2.0) A-a Gradient mmHg O2 Delivery Device Oxygen Flow Rate FiO2 (21.00-100.00) % Sodium 131 L (136-145) mEq/L Potassium 4.0 (3.5-5.1) mEq/L Chloride 96 L (98-107) mEq/L Carbon Dioxide 27 (21-32) mEq/L Anion Gap 12.0 (5-15) BUN 20 H (7-18) mg/dL Creatinine 1.2 (0.7-1.3) mg/dL Est Cr Clr Drug Dosing 74.91 mL/min Estimated GFR (MDRD) > 60 (>60) mL/min BUN/Creatinine Ratio 16.7 (14-18) Glucose 114 H (70-99) mg/dL Lactic Acid (0.4-2.0) mmol/L Calcium 8.2 L (8.5-10.1) mg/dL Phosphorus (2.6-4.7) mg/dL Magnesium 1.9 (1.8-2.4) mg/dL Total Bilirubin 0.6 (0.2-1.0) mg/dL AST 67 H (15-37) U/L ALT 48 (16-63) U/L Alkaline Phosphatase 49 (46-116) U/L Troponin I < 0.017 (0.00-0.056) ng/mL C-Reactive Protein 8.6 H* (<1.0) mg/dL NT-Pro-B Natriuret Pep (0-125) pg/mL Total Protein 7.0 (6.4-8.2) g/dl Albumin 3.0 L (3.4-5.0) g/dl Globulin 4.0 gm/dL Albumin/Globulin Ratio 0.8 L (1-2) 10/22/20 10/22/20 10/22/20 Range/Units 20:08 21:05 21:32 WBC (4.23-9.07) K/mm3 RBC (4.63-6.08) M/mm3 Hgb (13.7-17.5) gm/dl Hct (40.1-51.0) % MCV (79.0-92.2) fl MCH (25.7-32.2) pg MCHC (32.2-35.5) g/dl RDW Std Deviation (35.1-43.9) fL Plt Count (163-337) K/mm3 MPV (9.4-12.3) fl Neut % (Auto) (34.0-67.9) % Lymph % (Auto) (21.8-53.1) % [place] % (Auto) (5.3-12.2) % Eos % (Auto) (0.8-7.0) Baso % (Auto) (0.1-1.2) % Neut # (Auto) (1.78-5.38) K/mm3 Lymph # (Auto) (1.32-3.57) K/mm3 [place] # (Auto) (0.30-0.82) K/mm3 Eos # (Auto) (0.04-0.54) K/mm3 Baso # (Auto) (0.01-0.08) K/mm3 Neutrophils % (Manual) (40-60) % Band Neutrophils % (0-10) % Lymphocytes % (Manual) (20-40) % Atypical Lymphs % % Monocytes % (Manual) (2-10) % Eosinophils % (Manual) (0.8-7.0) % Basophils % (Manual) (0.2-1.2) Manual Slide Review Platelet Estimate RBC Morph Comment D-Dimer, Quantitative (0.19-0.50) mg/L Puncture Site Lt radial ABG pH 7.48 H (7.35-7.45) ABG pCO2 30.3 L (35.0-45.0) mmHg ABG pO2 68.0 L (80.0-100.0) mmHg ABG HCO3 22.1 (22.0-26.0) meq/L ABG O2 Saturation 93.5 L (96.0-97.0) % ABG Base Excess 0.0 (-2-2.0) A-a Gradient 208 mmHg O2 Delivery Device Nasal cannula Oxygen Flow Rate 6.0 FiO2 44.00 (21.00-100.00) % Sodium (136-145) mEq/L Potassium (3.5-5.1) mEq/L Chloride (98-107) mEq/L Carbon Dioxide (21-32) mEq/L Anion Gap (5-15) BUN (7-18) mg/dL Creatinine (0.7-1.3) mg/dL Est Cr Clr Drug Dosing mL/min Estimated GFR (MDRD) (>60) mL/min BUN/Creatinine Ratio (14-18) Glucose (70-99) mg/dL Lactic Acid 1.3 (0.4-2.0) mmol/L Calcium (8.5-10.1) mg/dL Phosphorus (2.6-4.7) mg/dL Magnesium (1.8-2.4) mg/dL Total Bilirubin (0.2-1.0) mg/dL AST (15-37) U/L ALT (16-63) U/L Alkaline Phosphatase (46-116) U/L Troponin I (0.00-0.056) ng/mL C-Reactive Protein (<1.0) mg/dL NT-Pro-B Natriuret Pep 249 H (0-125) pg/mL Total Protein (6.4-8.2) g/dl Albumin (3.4-5.0) g/dl Globulin gm/dL Albumin/Globulin Ratio (1-2) 10/23/20 10/23/20 10/23/20 Range/Units 04:35 04:35 04:35 WBC 5.23 (4.23-9.07) K/mm3 RBC 4.54 L (4.63-6.08) M/mm3 Hgb 14.9 (13.7-17.5) gm/dl Hct 44.2 (40.1-51.0) % MCV 97.4 H (79.0-92.2) fl MCH 32.8 H (25.7-32.2) pg MCHC 33.7 (32.2-35.5) g/dl RDW Std Deviation 44.0 H (35.1-43.9) fL Plt Count 84 L (163-337) K/mm3 MPV 11.1 (9.4-12.3) fl Neut % (Auto) 89.1 H (34.0-67.9) % Lymph % (Auto) 5.7 L (21.8-53.1) % [place] % (Auto) 4.8 L (5.3-12.2) % Eos % (Auto) 0 L (0.8-7.0) Baso % (Auto) 0.0 L (0.1-1.2) % Neut # (Auto) 4.66 (1.78-5.38) K/mm3 Lymph # (Auto) 0.30 L (1.32-3.57) K/mm3 [place] # (Auto) 0.25 L (0.30-0.82) K/mm3 Eos # (Auto) 0.00 L (0.04-0.54) K/mm3 Baso # (Auto) 0.00 L (0.01-0.08) K/mm3 Neutrophils % (Manual) (40-60) % Band Neutrophils % (0-10) % Lymphocytes % (Manual) (20-40) % Atypical Lymphs % % Monocytes % (Manual) (2-10) % Eosinophils % (Manual) (0.8-7.0) % Basophils % (Manual) (0.2-1.2) Manual Slide Review Abnormal smear Platelet Estimate RBC Morph Comment D-Dimer, Quantitative 0.50 (0.19-0.50) mg/L Puncture Site ABG pH (7.35-7.45) ABG pCO2 (35.0-45.0) mmHg ABG pO2 (80.0-100.0) mmHg ABG HCO3 (22.0-26.0) meq/L ABG O2 Saturation (96.0-97.0) % ABG Base Excess (-2-2.0) A-a Gradient mmHg O2 Delivery Device Oxygen Flow Rate FiO2 (21.00-100.00) % Sodium 135 L (136-145) mEq/L Potassium 4.0 (3.5-5.1) mEq/L Chloride 99 (98-107) mEq/L Carbon Dioxide 25 (21-32) mEq/L Anion Gap 15.0 (5-15) BUN 18 (7-18) mg/dL Creatinine 1.0 (0.7-1.3) mg/dL Est Cr Clr Drug Dosing 89.89 mL/min Estimated GFR (MDRD) > 60 (>60) mL/min BUN/Creatinine Ratio 18.0 (14-18) Glucose 134 H (70-99) mg/dL Lactic Acid (0.4-2.0) mmol/L Calcium 7.7 L (8.5-10.1) mg/dL Phosphorus 3.6 (2.6-4.7) mg/dL Magnesium 2.0 (1.8-2.4) mg/dL Total Bilirubin 0.6 (0.2-1.0) mg/dL AST 53 H (15-37) U/L ALT 38 (16-63) U/L Alkaline Phosphatase 38 L (46-116) U/L Troponin I (0.00-0.056) ng/mL C-Reactive Protein 10.5 H* (<1.0) mg/dL NT-Pro-B Natriuret Pep (0-125) pg/mL Total Protein 6.3 L (6.4-8.2) g/dl Albumin 2.5 L (3.4-5.0) g/dl Globulin 3.8 gm/dL Albumin/Globulin Ratio 0.7 L (1-2) Result Diagrams: 10/23/20 04:35 10/23/20 04:35 Sepsis Event Note - Evaluation Sepsis Screening Result: Possible Sepsis Risk - Focused Exam Vital Signs: Vital Signs Temp Pulse Pulse Resp BP BP Pulse Ox 10/23/20 07:30 98.2 F 63 20 109/69 95 10/23/20 06:13 10/23/20 04:43 98.2 F 66 28 H 113/64 89 L 10/22/20 22:36 100.8 F H 78 32 H 93/56 L 90 L 10/22/20 22:15 78 41 H 96 10/22/20 22:00 79 37 H 101/52 L 95 10/22/20 21:45 79 37 H 101/52 L 95 10/22/20 21:30 82 36 H 110/54 L 92 L 10/22/20 21:15 86 36 H 103/61 92 L Pulse Ox 10/23/20 07:30 10/23/20 06:13 88 L 10/23/20 04:43 10/22/20 22:36 10/22/20 22:15 10/22/20 22:00 10/22/20 21:45 10/22/20 21:30 10/22/20 21:15 - Problem List (1) Acute respiratory failure due to COVID-19 SNOMED Code(s): 016861709 ICD Code: U07.1 - COVID-19; J96.00 - ACUTE RESPIRATORY FAILURE, UNSP W HYPOXIA OR HYPERCAPNIA Status: Acute Current Visit: Yes (2) Bladder cancer SNOMED Code(s): 779206637 ICD Code: C67.9 - MALIGNANT NEOPLASM OF BLADDER, UNSPECIFIED Status: Resolved Current Visit: Yes (3) Hypertension SNOMED Code(s): 11911737 ICD Code: I10 - ESSENTIAL (PRIMARY) HYPERTENSION Status: Acute Current Visit: Yes Problem List Initiated/Reviewed/Updated: Yes Orders Last 24hrs: Active Orders 24 hr Category Date Time Status Patient Status [ADT] Routine ADT 10/22/20 21:54 Active Antiembolic Devices [RC] BID Care 10/22/20 21:50 Active Cardiac Monitoring [RC] . DIRECTED Care 10/22/20 21:46 Active Oxygen Therapy [RC] PRN Care 10/22/20 21:46 Active Positioning, Patient [RC] BID Care 10/22/20 21:49 Active RT Aerosol Therapy [RC] ASDIRECTED Care 10/22/20 21:50 Active RT Incentive Spirometry [RC] Q1HWA Care 10/22/20 21:46 Active Up With Assistance [RC] BID Care 10/22/20 21:46 Active VTE/DVT Education [RC] DAILY Care 10/22/20 21:46 Active Vital Signs [RC] Q4HR Care 10/22/20 21:46 Active Respiratory Care Assess and Treatment [CONS] Routine Cons 10/22/20 21:46 Active Regular Diet [DIET] Diet 10/23/20 Breakfast Active BLOOD CULTURE [MREF] Stat Lab 10/22/20 21:05 Received BLOOD CULTURE [MREF] Stat Lab 10/22/20 21:10 Received CBC WITH AUTO DIFF [HEME] AM Lab 10/24/20 05:11 Ordered CBC WITH AUTO DIFF [HEME] AM Lab 10/25/20 05:11 Ordered CBC WITH AUTO DIFF [HEME] AM Lab 10/26/20 05:11 Ordered CBC WITH AUTO DIFF [HEME] AM Lab 10/27/20 05:11 Ordered CMP [COMPREHENSIVE METABOLIC PN,CMP] [CHEM] AM Lab 10/24/20 05:11 Ordered CMP [COMPREHENSIVE METABOLIC PN,CMP] [CHEM] AM Lab 10/25/20 05:11 Ordered CMP [COMPREHENSIVE METABOLIC PN,CMP] [CHEM] AM Lab 10/26/20 05:11 Ordered CMP [COMPREHENSIVE METABOLIC PN,CMP] [CHEM] AM Lab 10/27/20 05:11 Ordered CRP [C-REACTIVE PROTEIN] [CHEM] AM Lab 10/24/20 05:11 Ordered CRP [C-REACTIVE PROTEIN] [CHEM] AM Lab 10/25/20 05:11 Ordered CRP [C-REACTIVE PROTEIN] [CHEM] AM Lab 10/26/20 05:11 Ordered CRP [C-REACTIVE PROTEIN] [CHEM] AM Lab 10/27/20 05:11 Ordered DD [D-DIMER QUANTITATIVE] [COAG] AM Lab 10/25/20 05:11 Ordered MAGNESIUM [CHEM] AM Lab 10/24/20 05:11 Ordered MAGNESIUM [CHEM] AM Lab 10/25/20 05:11 Ordered MAGNESIUM [CHEM] AM Lab 10/26/20 05:11 Ordered MAGNESIUM [CHEM] AM Lab 10/27/20 05:11 Ordered Acetaminophen [TylenoL] Med 10/22/20 21:46 Active 650 mg PO Q4H PRN Albuterol [Proventil HFA] Med 10/23/20 07:49 Active 0 gm INH Q2H PRN Albuterol/Ipratropium [DuoNeb 3.0-0.5 MG/3 ML] Med 10/22/20 21:46 Active 3 ml NEB Q4H PRN Alum Hydrox/Mag Hydrox/Simeth [Mag-Al Plus] Med 10/22/20 23:05 Active 30 ml PO Q4H PRN Famotidine [Pepcid] Med 10/23/20 09:00 Active 20 mg PO BID Melatonin Med 10/22/20 21:46 Active 6 mg PO BEDTIME PRN Ondansetron [Zofran] Med 10/22/20 21:46 Active 4 mg IV Q6H PRN Remdesivir 100 mg Med 10/23/20 22:00 Active Sodium Chloride 0.9% [Normal Saline] 100 ml IV Q24H Zinc Sulfate [Zincate] Med 10/23/20 09:00 Active 220 mg PO DAILY dexAMETHasone Med 10/23/20 09:00 Active 6 mg PO DAILY Blood Culture x2 Reflex Set [OM.PC] Stat Ot 10/22/20 20:36 Ordered Isolation [COMM] Stat Ot 10/22/20 21:46 Ordered RT Acapella [RESPCARE] Routine Oth 10/22/20 21:46 Active Sequential Compression Device [OM.PC] Per Unit Routine Ot 10/22/20 21:47 Ordered Resuscitation Status Routine Resus Stat 10/22/20 21:46 Ordered Medication Orders Acetaminophen (Acetaminophen 325 Mg Tab) 650 mg PO Q4H PRN PRN Reason: Pain (Mild 1-3)/fever Al Hydroxide/Mg Hydroxide (Aluminum Hydroxide/Magnesium Hydroxide/Simethicone Susp 30 Ml Cup) 30 ml PO Q4H PRN PRN Reason: Heartburn Last Admin: 10/22/20 23:13 Dose: 30 ml Documented by: BRADJUL Albuterol (Albuterol 6.7 Gm Inhaler) 0 gm INH Q2H PRN PRN Reason: Shortness of Breath Albuterol/Ipratropium (Albuterol/Ipratropium 3.0-0.5 Mg/3 Ml Neb Soln) 3 ml NEB Q4H PRN PRN Reason: Shortness Of Breath/wheezing Dexamethasone (Dexamethasone 4 Mg Tab) 6 mg PO DAILY [facility] Stop: 10/31/20 09:01 Last Admin: 10/23/20 08:39 Dose: 6 mg Documented by: V[place] Famotidine (Famotidine 20 Mg Tab) 20 mg PO BID [facility] Last Admin: 10/23/20 08:39 Dose: 20 mg Documented by: [place] Remdesivir 100 mg/ Sodium (Chloride) 100 mls @ 100 mls/hr IV Q24H [facility] Stop: 10/26/20 22:59 Melatonin (Melatonin 3 Mg Tab) 6 mg PO BEDTIME PRN PRN Reason: Insomnia Ondansetron HCl (Ondansetron 4 Mg/2 Ml Sdv) 4 mg IV Q6H PRN PRN Reason: Nausea/Vomiting Zinc Sulfate (Zinc Sulfate 220 Mg Cap) 220 mg PO DAILY [facility] Last Admin: 10/23/20 08:39 Dose: 220 mg Documented by: [place] Assessment/Plan Comment:: 60-year-old with remote history of bladder cancer presents to the emergency department after a little over 1 week of symptoms consistent with COVID-19. Respiratory failure secondary to COVID-19 -Diagnosed with COVID-19 on 10/14/2020 -WBC 5.37, D-dimer 0.63, CRP 8.6, albumin 3.0, proBNP 249 -Requiring 6 L nasal cannula to keep oxygen saturations in the low 90s. He is at risk for worsening condition with his obesity. -Start remdesivir and dexamethasone. May consider baricitinib if requiring any more oxygen supplementation. -I-S, Acapella, respiratory therapy consult, titrate FiO2 to keep SPO2 up to 92% -Blood cultures sent Hypertension Well controlled -Continue home meds Dermatomyositis -Currently on Imuran will continue it during hospitalization. 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
[2020-10-23] MEDS: Albuterol 6.7 GM Inhaler INH PRN ×2 (09:14→19:42)
--- NOTE | 2020-10-23 10:12 | PCM.HP.2 ---
H&P History of Present Illness - General Date of Service: 10/23/20 Admit Problem/Dx: Admission Diagnosis/Problem Admission Diagnosis/Problem Hypoxia Source of Information: Patient History Limitations: Reports: No Limitations - History of Present Illness Initial Comments - Free Text/Narative: Zaki is a 60 year old man who presented the ER yesterday (10/22) for worsening shortness of breath, fatigue, coughing, headache, and slight increase in temperature. He initially went to the walk-in prior last week and was told to monitor O2 saturations and tested positive for COVID-19. He reports being unable to record O2 saturations above 80% at home, this also prompted him to present to the ER. He reports that these symptoms began 9 days prior (10/14) and have been gradually worsening. He also reports a loss of smell and taste, and slight nausea. He describes the shortness of breath as the inability to take a full breath. The cough is productive, clear mucus is seen by patient. He has been sleeping 12 hours or more daily and the fatigue prevents him from completing simple daily activities. He reports at home temperature readings around 100F. Mucinex for the cough has shown little benefit and he has not taken any other medications for the current symptoms. 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 He is not vaccinated and has no other known exposure to COVID-19. He reports the severity of his symptoms at a 9/10. Onset of Symptoms: Reports: Gradual Symptom Onset Date: 10/14/20 Duration of Symptoms: Reports: Day(s): (9) Location: Reports: Chest Improves with: Reports: None Worsens with: Reports: Breathing, Movement Context: Reports: Sick Contact Associated Symptoms: Reports: Cough, Fever/Chills, Headaches, Loss of Appetite, Malaise, Nausea/Vomiting (No Vomiting), Shortness of Breath - Related Data Allergies/Adverse Reactions: Allergies Allergy/AdvReac Type Severity Reaction Status Date / Time No Known Allergies Allergy Verified 10/22/20 20:03 Home Medications: Home Meds Lisinopril 20 mg PO DAILY 01/29/15 [History] azaTHIOprine [Azathioprine] 100 mg PO BID 12/16/17 [History] Fish Oil/DHA/EPA [Fish Oil 1,200 MG] 1 cap PO BEDTIME 10/23/20 [History] Glucos Sul 2Kcl/MSM/Chond/C/Mn [Glucosamine Chondroitin Cap] 2 each PO BEDTIME 10/23/20 [History] Sod Phos Di, [place]/K Phos [place] [Phosphorous 250 mg Tablet] 250 mg PO DAILY 10/23/20 [History] Past Medical History HEENT History: Reports: Other (See Below) Other HEENT History: Pt has prescription reading glasses, not with pt Cardiovascular History: Reports: Hypertension Gastrointestinal History: Reports: Gastritis Musculoskeletal History: Reports: Other (See Below) Other Musculoskeletal History: myopathy Endocrine/Metabolic History: Reports: Obesity/BMI 30+ Immunologic History: Reports: Other (See Below) Other Immunologic History: dermatomyositis Oncologic (Cancer) History: Reports: Bladder Other Oncologic History: radation and chemo - Infectious Disease History Infectious Disease History: Reports: Novel Coronavirus - Past Surgical History HEENT Surgical History: Reports: Oral Surgery Male Surgical History: Reports: TURBT-Transurethral Resection of Bladder Tumor Social & Family History - Family History Musculoskeletal: Reports: Other (See Below) Other Musculoskeletal Family History: Scoliosis - Mother Neurological: Reports: Parkinson's (Father) Endocrine/Metabolic: Reports: Diabetes, type II (Paternal GF) - Tobacco Use Tobacco Use Status *Q: Former Tobacco User Years of Tobacco use: 31 Packs/Tins Daily: 1.5 Used Tobacco, but Quit: Yes Month/Year Tobacco Last Used: 2007 Tobacco Use Comment: Started smoking 1976 Second Hand Smoke Exposure: No - Caffeine Use Caffeine Use: Reports: Coffee Caffeine Use Comment: 1 cup coffee - Alcohol Use Alcohol Use History: Yes Days Per Week of Alcohol Use: 7 Number of Drinks Per Day: 4 Total Drinks Per Week: 28 Date of Last Drink: 10/19/20 Time of Last Drink: 21:00 Alcohol Use Frequency: Daily - Recreational Drug Use Recreational Drug Use: No - Living Situation & Occupation Living situation: Reports: , with Spouse Occupation: Employed ([employer]) H&P Review of Systems - Review of Systems: Review Of Systems: See Below General: Reports: Fever, Chills, Malaise, Weakness, Fatigue, Decreased Appetite HEENT: Reports: Headaches Cardiovascular: Reports: Dyspnea on Exertion Gastrointestinal: Reports: Diarrhea, Decreased Appetite, Nausea. Denies: Bloody Stool, Hematochezia, Vomiting Genitourinary: Reports: No Symptoms. Denies: Dysuria Musculoskeletal: Reports: No Symptoms Skin: Reports: No Symptoms Psychiatric: Reports: No Symptoms Neurological: Reports: No Symptoms Hematologic/Lymphatic: Reports: No Symptoms Immunologic: Reports: No Symptoms Exam - Exam Exam: See Below - Vital Signs Vital Signs: Last Vital Signs Temp 98.2 F 10/23/20 07:30 Pulse 63 10/23/20 07:30 Resp 20 10/23/20 07:30 BP 109/69 10/23/20 07:30 Pulse Ox 89 L 10/23/20 09:15 Weight: 109.679 kg - Exam General: Alert, Oriented, Cooperative HEENT: Conjunctiva Clear, Hearing Intact Neck: Supple Lungs: Crackles (Lower and Middle Right Lung Region; Left Lower Region), Other (Productive Cough during exam) Cardiovascular: Regular Rate, Regular Rhythm, Normal S1, Normal S2 GI/Abdominal Exam: Normal Bowel Sounds, Soft, Non-Tender, No Organomegaly, No Distention, No Abnormal Bruit, No Mass (Male) Exam: No Hernia Back Exam: Normal Inspection Extremities: Normal Inspection, Non-Tender, No Pedal Edema Skin: Warm, Dry, Intact Neurological: Cranial Nerves Intact Neuro Extensive - Mental Status: Alert, Oriented x3, Normal Mood/Affect, Normal Cognition, Memory Intact Psychiatric: Alert, Normal Affect, Normal Mood - Patient Data Lab Results Last 24 hrs: Laboratory Results - last 24 hr 10/22/20 10/22/20 10/22/20 Range/Units 20:08 20:08 20:08 WBC 5.37 (4.23-9.07) K/mm3 RBC 4.97 (4.63-6.08) M/mm3 Hgb 16.3 (13.7-17.5) gm/dl Hct 48.3 (40.1-51.0) % MCV 97.2 H (79.0-92.2) fl MCH 32.8 H (25.7-32.2) pg MCHC 33.7 (32.2-35.5) g/dl RDW Std Deviation 44.5 H (35.1-43.9) fL Plt Count 91 L (163-337) K/mm3 MPV 11.0 (9.4-12.3) fl Neut % (Auto) (34.0-67.9) % Lymph % (Auto) (21.8-53.1) % [place] % (Auto) (5.3-12.2) % Eos % (Auto) (0.8-7.0) Baso % (Auto) (0.1-1.2) % Neut # (Auto) (1.78-5.38) K/mm3 Lymph # (Auto) (1.32-3.57) K/mm3 [place] # (Auto) (0.30-0.82) K/mm3 Eos # (Auto) (0.04-0.54) K/mm3 Baso # (Auto) (0.01-0.08) K/mm3 Neutrophils % (Manual) 82 H (40-60) % Band Neutrophils % 4 (0-10) % Lymphocytes % (Manual) 9 L (20-40) % Atypical Lymphs % 0 % Monocytes % (Manual) 5 (2-10) % Eosinophils % (Manual) 0 L (0.8-7.0) % Basophils % (Manual) 0 L (0.2-1.2) Manual Slide Review Platelet Estimate Decreased RBC Morph Comment Normal D-Dimer, Quantitative 0.63 H (0.19-0.50) mg/L Puncture Site ABG pH (7.35-7.45) ABG pCO2 (35.0-45.0) mmHg ABG pO2 (80.0-100.0) mmHg ABG HCO3 (22.0-26.0) meq/L ABG O2 Saturation (96.0-97.0) % ABG Base Excess (-2-2.0) A-a Gradient mmHg O2 Delivery Device Oxygen Flow Rate FiO2 (21.00-100.00) % Sodium 131 L (136-145) mEq/L Potassium 4.0 (3.5-5.1) mEq/L Chloride 96 L (98-107) mEq/L Carbon Dioxide 27 (21-32) mEq/L Anion Gap 12.0 (5-15) BUN 20 H (7-18) mg/dL Creatinine 1.2 (0.7-1.3) mg/dL Est Cr Clr Drug Dosing 74.91 mL/min Estimated GFR (MDRD) > 60 (>60) mL/min BUN/Creatinine Ratio 16.7 (14-18) Glucose 114 H (70-99) mg/dL Lactic Acid (0.4-2.0) mmol/L Calcium 8.2 L (8.5-10.1) mg/dL Phosphorus (2.6-4.7) mg/dL Magnesium 1.9 (1.8-2.4) mg/dL Total Bilirubin 0.6 (0.2-1.0) mg/dL AST 67 H (15-37) U/L ALT 48 (16-63) U/L Alkaline Phosphatase 49 (46-116) U/L Troponin I < 0.017 (0.00-0.056) ng/mL C-Reactive Protein 8.6 H* (<1.0) mg/dL NT-Pro-B Natriuret Pep (0-125) pg/mL Total Protein 7.0 (6.4-8.2) g/dl Albumin 3.0 L (3.4-5.0) g/dl Globulin 4.0 gm/dL Albumin/Globulin Ratio 0.8 L (1-2) 10/22/20 10/22/20 10/22/20 Range/Units 20:08 21:05 21:32 WBC (4.23-9.07) K/mm3 RBC (4.63-6.08) M/mm3 Hgb (13.7-17.5) gm/dl Hct (40.1-51.0) % MCV (79.0-92.2) fl MCH (25.7-32.2) pg MCHC (32.2-35.5) g/dl RDW Std Deviation (35.1-43.9) fL Plt Count (163-337) K/mm3 MPV (9.4-12.3) fl Neut % (Auto) (34.0-67.9) % Lymph % (Auto) (21.8-53.1) % [place] % (Auto) (5.3-12.2) % Eos % (Auto) (0.8-7.0) Baso % (Auto) (0.1-1.2) % Neut # (Auto) (1.78-5.38) K/mm3 Lymph # (Auto) (1.32-3.57) K/mm3 [place] # (Auto) (0.30-0.82) K/mm3 Eos # (Auto) (0.04-0.54) K/mm3 Baso # (Auto) (0.01-0.08) K/mm3 Neutrophils % (Manual) (40-60) % Band Neutrophils % (0-10) % Lymphocytes % (Manual) (20-40) % Atypical Lymphs % % Monocytes % (Manual) (2-10) % Eosinophils % (Manual) (0.8-7.0) % Basophils % (Manual) (0.2-1.2) Manual Slide Review Platelet Estimate RBC Morph Comment D-Dimer, Quantitative (0.19-0.50) mg/L Puncture Site Lt radial ABG pH 7.48 H (7.35-7.45) ABG pCO2 30.3 L (35.0-45.0) mmHg ABG pO2 68.0 L (80.0-100.0) mmHg ABG HCO3 22.1 (22.0-26.0) meq/L ABG O2 Saturation 93.5 L (96.0-97.0) % ABG Base Excess 0.0 (-2-2.0) A-a Gradient 208 mmHg O2 Delivery Device Nasal cannula Oxygen Flow Rate 6.0 FiO2 44.00 (21.00-100.00) % Sodium (136-145) mEq/L Potassium (3.5-5.1) mEq/L Chloride (98-107) mEq/L Carbon Dioxide (21-32) mEq/L Anion Gap (5-15) BUN (7-18) mg/dL Creatinine (0.7-1.3) mg/dL Est Cr Clr Drug Dosing mL/min Estimated GFR (MDRD) (>60) mL/min BUN/Creatinine Ratio (14-18) Glucose (70-99) mg/dL Lactic Acid 1.3 (0.4-2.0) mmol/L Calcium (8.5-10.1) mg/dL Phosphorus (2.6-4.7) mg/dL Magnesium (1.8-2.4) mg/dL Total Bilirubin (0.2-1.0) mg/dL AST (15-37) U/L ALT (16-63) U/L Alkaline Phosphatase (46-116) U/L Troponin I (0.00-0.056) ng/mL C-Reactive Protein (<1.0) mg/dL NT-Pro-B Natriuret Pep 249 H (0-125) pg/mL Total Protein (6.4-8.2) g/dl Albumin (3.4-5.0) g/dl Globulin gm/dL Albumin/Globulin Ratio (1-2) 10/23/20 10/23/20 10/23/20 Range/Units 04:35 04:35 04:35 WBC 5.23 (4.23-9.07) K/mm3 RBC 4.54 L (4.63-6.08) M/mm3 Hgb 14.9 (13.7-17.5) gm/dl Hct 44.2 (40.1-51.0) % MCV 97.4 H (79.0-92.2) fl MCH 32.8 H (25.7-32.2) pg MCHC 33.7 (32.2-35.5) g/dl RDW Std Deviation 44.0 H (35.1-43.9) fL Plt Count 84 L (163-337) K/mm3 MPV 11.1 (9.4-12.3) fl Neut % (Auto) 89.1 H (34.0-67.9) % Lymph % (Auto) 5.7 L (21.8-53.1) % [place] % (Auto) 4.8 L (5.3-12.2) % Eos % (Auto) 0 L (0.8-7.0) Baso % (Auto) 0.0 L (0.1-1.2) % Neut # (Auto) 4.66 (1.78-5.38) K/mm3 Lymph # (Auto) 0.30 L (1.32-3.57) K/mm3 [place] # (Auto) 0.25 L (0.30-0.82) K/mm3 Eos # (Auto) 0.00 L (0.04-0.54) K/mm3 Baso # (Auto) 0.00 L (0.01-0.08) K/mm3 Neutrophils % (Manual) (40-60) % Band Neutrophils % (0-10) % Lymphocytes % (Manual) (20-40) % Atypical Lymphs % % Monocytes % (Manual) (2-10) % Eosinophils % (Manual) (0.8-7.0) % Basophils % (Manual) (0.2-1.2) Manual Slide Review Abnormal smear Platelet Estimate RBC Morph Comment D-Dimer, Quantitative 0.50 (0.19-0.50) mg/L Puncture Site ABG pH (7.35-7.45) ABG pCO2 (35.0-45.0) mmHg ABG pO2 (80.0-100.0) mmHg ABG HCO3 (22.0-26.0) meq/L ABG O2 Saturation (96.0-97.0) % ABG Base Excess (-2-2.0) A-a Gradient mmHg O2 Delivery Device Oxygen Flow Rate FiO2 (21.00-100.00) % Sodium 135 L (136-145) mEq/L Potassium 4.0 (3.5-5.1) mEq/L Chloride 99 (98-107) mEq/L Carbon Dioxide 25 (21-32) mEq/L Anion Gap 15.0 (5-15) BUN 18 (7-18) mg/dL Creatinine 1.0 (0.7-1.3) mg/dL Est Cr Clr Drug Dosing 89.89 mL/min Estimated GFR (MDRD) > 60 (>60) mL/min BUN/Creatinine Ratio 18.0 (14-18) Glucose 134 H (70-99) mg/dL Lactic Acid (0.4-2.0) mmol/L Calcium 7.7 L (8.5-10.1) mg/dL Phosphorus 3.6 (2.6-4.7) mg/dL Magnesium 2.0 (1.8-2.4) mg/dL Total Bilirubin 0.6 (0.2-1.0) mg/dL AST 53 H (15-37) U/L ALT 38 (16-63) U/L Alkaline Phosphatase 38 L (46-116) U/L Troponin I (0.00-0.056) ng/mL C-Reactive Protein 10.5 H* (<1.0) mg/dL NT-Pro-B Natriuret Pep (0-125) pg/mL Total Protein 6.3 L (6.4-8.2) g/dl Albumin 2.5 L (3.4-5.0) g/dl Globulin 3.8 gm/dL Albumin/Globulin Ratio 0.7 L (1-2) Result Diagrams: 10/23/20 04:35 10/23/20 04:35 Sepsis Event Note - Evaluation Sepsis Screening Result: Possible Sepsis Risk - Focused Exam Vital Signs: Vital Signs Temp Pulse Pulse Resp BP Pulse Ox Pulse Ox 10/23/20 09:15 89 L 10/23/20 07:30 98.2 F 63 20 109/69 95 10/23/20 06:13 88 L 10/23/20 04:43 98.2 F 66 28 H 113/64 89 L 10/22/20 22:36 100.8 F H 78 32 H 93/56 L 90 L 10/22/20 22:15 78 41 H 96 - Problem List (1) COVID-19 SNOMED Code(s): 857747532 ICD Code: U07.1 - COVID-19 Status: Acute Current Visit: Yes Problem List Initiated/Reviewed/Updated: Yes Orders Last 24hrs: Active Orders 24 hr Category Date Time Status Patient Status [ADT] Routine ADT 10/22/20 21:54 Active Antiembolic Devices [RC] BID Care 10/22/20 21:50 Active Cardiac Monitoring [RC] . DIRECTED Care 10/22/20 21:46 Active Oxygen Therapy [RC] PRN Care 10/22/20 21:46 Active Positioning, Patient [RC] BID Care 10/22/20 21:49 Active RT Aerosol Therapy [RC] ASDIRECTED Care 10/22/20 21:50 Active RT Incentive Spirometry [RC] Q1HWA Care 10/22/20 21:46 Active Up With Assistance [RC] BID Care 10/22/20 21:46 Active VTE/DVT Education [RC] DAILY Care 10/22/20 21:46 Active Vital Signs [RC] Q4HR Care 10/22/20 21:46 Active Respiratory Care Assess and Treatment [CONS] Routine Cons 10/22/20 21:46 Active Regular Diet [DIET] Diet 10/23/20 Breakfast Active BLOOD CULTURE [MREF] Stat Lab 10/22/20 21:05 Received BLOOD CULTURE [MREF] Stat Lab 10/22/20 21:10 Received CBC WITH AUTO DIFF [HEME] AM Lab 10/24/20 05:11 Ordered CBC WITH AUTO DIFF [HEME] AM Lab 10/25/20 05:11 Ordered CBC WITH AUTO DIFF [HEME] AM Lab 10/26/20 05:11 Ordered CBC WITH AUTO DIFF [HEME] AM Lab 10/27/20 05:11 Ordered CMP [COMPREHENSIVE METABOLIC PN,CMP] [CHEM] AM Lab 10/24/20 05:11 Ordered CMP [COMPREHENSIVE METABOLIC PN,CMP] [CHEM] AM Lab 10/25/20 05:11 Ordered CMP [COMPREHENSIVE METABOLIC PN,CMP] [CHEM] AM Lab 10/26/20 05:11 Ordered CMP [COMPREHENSIVE METABOLIC PN,CMP] [CHEM] AM Lab 10/27/20 05:11 Ordered CRP [C-REACTIVE PROTEIN] [CHEM] AM Lab 10/24/20 05:11 Ordered CRP [C-REACTIVE PROTEIN] [CHEM] AM Lab 10/25/20 05:11 Ordered CRP [C-REACTIVE PROTEIN] [CHEM] AM Lab 10/26/20 05:11 Ordered CRP [C-REACTIVE PROTEIN] [CHEM] AM Lab 10/27/20 05:11 Ordered DD [D-DIMER QUANTITATIVE] [COAG] AM Lab 10/25/20 05:11 Ordered MAGNESIUM [CHEM] AM Lab 10/24/20 05:11 Ordered MAGNESIUM [CHEM] AM Lab 10/25/20 05:11 Ordered MAGNESIUM [CHEM] AM Lab 10/26/20 05:11 Ordered MAGNESIUM [CHEM] AM Lab 10/27/20 05:11 Ordered Acetaminophen [TylenoL] Med 10/22/20 21:46 Active 650 mg PO Q4H PRN Albuterol [Proventil HFA] Med 10/23/20 07:49 Active 0 gm INH Q2H PRN Albuterol/Ipratropium [DuoNeb 3.0-0.5 MG/3 ML] Med 10/22/20 21:46 Active 3 ml NEB Q4H PRN Alum Hydrox/Mag Hydrox/Simeth [Mag-Al Plus] Med 10/22/20 23:05 Active 30 ml PO Q4H PRN Famotidine [Pepcid] Med 10/23/20 09:00 Active 20 mg PO BID Fish Oil/[place]-3 Fatty Acids [Fish Oil] Med 10/23/20 21:00 Active 1 gm PO BEDTIME Melatonin Med 10/22/20 21:46 Active 6 mg PO BEDTIME PRN Ondansetron [Zofran] Med 10/22/20 21:46 Active 4 mg IV Q6H PRN Phosphorus #1 [Neutra-Phos] Med 10/23/20 10:00 Active 250 mg PO DAILY Remdesivir 100 mg Med 10/23/20 22:00 Active Sodium Chloride 0.9% [Normal Saline] 100 ml IV Q24H Zinc Sulfate [Zincate] Med 10/23/20 09:00 Active 220 mg PO DAILY azaTHIOprine [Imuran] Med 10/23/20 10:00 Active 50 mg PO BID dexAMETHasone Med 10/23/20 09:00 Active 6 mg PO DAILY lisinopriL [Prinivil] Med 10/23/20 10:00 Active 20 mg PO DAILY Blood Culture x2 Reflex Set [OM.PC] Stat Oth 10/22/20 20:36 Ordered Isolation [COMM] Stat Oth 10/22/20 21:46 Ordered RT Acapella [RESPCARE] Routine Ot 10/22/20 21:46 Active Sequential Compression Device [OM.PC] Per Unit Routine Ot 10/22/20 21:47 Ordered Resuscitation Status Routine Resus Stat 10/22/20 21:46 Ordered Medication Orders Acetaminophen (Acetaminophen 325 Mg Tab) 650 mg PO Q4H PRN PRN Reason: Pain (Mild 1-3)/fever Al Hydroxide/Mg Hydroxide (Aluminum Hydroxide/Magnesium Hydroxide/Simethicone Susp 30 Ml Cup) 30 ml PO Q4H PRN PRN Reason: Heartburn Last Admin: 10/22/20 23:13 Dose: 30 ml Documented by: VAL Albuterol (Albuterol 6.7 Gm Inhaler) 0 gm INH Q2H PRN PRN Reason: Shortness of Breath Last Admin: 10/23/20 09:14 Dose: 2 inhaler Documented by: PIA Albuterol/Ipratropium (Albuterol/Ipratropium 3.0-0.5 Mg/3 Ml Neb Soln) 3 ml NEB Q4H PRN PRN Reason: Shortness Of Breath/wheezing Azathioprine (Azathioprine 50 Mg Tab) 50 mg PO BID [facility] Dexamethasone (Dexamethasone 4 Mg Tab) 6 mg PO DAILY [facility] Stop: 10/31/20 09:01 Last Admin: 10/23/20 08:39 Dose: 6 mg Documented by: [place] Famotidine (Famotidine 20 Mg Tab) 20 mg PO BID [facility] Last Admin: 10/23/20 08:39 Dose: 20 mg Documented by: [place] Fish Oil (Fish Oil/[place]-3 Fatty Acids 1 Gm Cap) 1 gm PO BEDTIME [facility] Remdesivir 100 mg/ Sodium (Chloride) 100 mls @ 100 mls/hr IV Q24H [place]EF[place] Stop: 10/26/20 22:59 Lisinopril (Lisinopril 20 Mg Tab) 20 mg PO DAILY [facility] Melatonin (Melatonin 3 Mg Tab) 6 mg PO BEDTIME PRN PRN Reason: Insomnia Ondansetron HCl (Ondansetron 4 Mg/2 Ml Sdv) 4 mg IV Q6H PRN PRN Reason: Nausea/Vomiting Sodium Phosphate (Phosphorus #1 250 Mg Tab) 250 mg PO DAILY [facility] Zinc Sulfate (Zinc Sulfate 220 Mg Cap) 220 mg PO DAILY [facility] Last Admin: 10/23/20 08:39 Dose: 220 mg Documented by: [place] Assessment/Plan Comment:: Assessment: Exacerbation of COVID-19 viral infection. Hypoxia Plan: 1. Encourage prone positioning 2. Titration of supplemental oxygen, increase as needed. 3. Continue Dexamethasone and Remdesivir 4. Start systemic anticoagulation due to risk factors (Obesity, HTN)
[2020-10-23] MEDS: Phosphorus #1 250 MG Tab PO SCH (10:24)
[2020-10-23] MEDS: Lisinopril 20 MG Tab PO SCH (10:32)
[2020-10-23] MEDS: Aluminum Hydroxide/Magnesium Hydroxide/Simethicone Susp 30 ML Cup PO PRN (19:24)
[2020-10-23] MEDS ORDERED: Dexamethasone 10 MG/ML SDV IVPUSH SCH (21:00)
[2020-10-23] MEDS: guaiFENesin 600 MG Tab.ER PO SCH (21:03)
[2020-10-23] MEDS: Benzonatate 100 MG Cap PO SCH (21:03)
[2020-10-23] MEDS: Fish Oil/Omega-3 Fatty Acids 1 Gm Cap PO SCH (21:03)
[2020-10-23] MEDS: REMDESIVIR 100 MG in Sodium Chloride 0.9% 100 ML IV SCH (21:04)
[2020-10-24] MEDS: guaiFENesin 600 MG Tab.ER PO SCH ×3 (08:25→21:13)
[2020-10-24] MEDS: Zinc Sulfate 220 MG Cap PO SCH (08:25)
[2020-10-24] MEDS: Famotidine 20 MG Tab PO SCH ×2 (08:25→21:12)
[2020-10-24] MEDS: Lisinopril 20 MG Tab PO SCH (08:25)
[2020-10-24] MEDS: Phosphorus #1 250 MG Tab PO SCH (08:25)
[2020-10-24] MEDS: Benzonatate 100 MG Cap PO SCH ×3 (08:26→21:13)
[2020-10-24] MEDS: Dexamethasone 4 MG Tab PO SCH (08:27)
[2020-10-24] MEDS: Albuterol 6.7 GM Inhaler INH PRN ×3 (09:36→20:18)
--- NOTE | 2020-10-24 15:47 | PCM.PN ---
- General Info Date of Service: 10/24/20 Admission Dx/Problem (Free Text): COVID-19 pneumonia Subjective Update: Patient continues to cough, but it has improved. He was switched to high flow nasal cannula last night. Oxygen saturations are better. Patient did not start baricitinib because he is already on 2 immunosuppressants, Imuran and dexamethasone, and I felt the risk of immunosuppression was greater than possible benefit at this time. Functional Status: Reports: Pain Controlled - Review of Systems General: Reports: Fatigue HEENT: Reports: No Symptoms Pulmonary: Reports: Shortness of Breath, Cough, Sputum Cardiovascular: Reports: No Symptoms Gastrointestinal: Reports: No Symptoms - Patient Data Vitals - Most Recent: Last Vital Signs Temp 98.2 F 10/24/20 11:17 Pulse 70 10/24/20 11:17 Resp 16 10/24/20 11:17 BP 93/59 L 10/24/20 11:17 Pulse Ox 90 L 10/24/20 15:17 Weight - Most Recent: 242 lb I&O - Last 24 Hours: Intake & Output 10/24/20 10/24/20 10/24/20 06:59 14:59 22:59 Intake Total 898 240 Balance 898 240 Lab Results Last 24 Hours: Laboratory Results - last 24 hr 10/24/20 10/24/20 Range/Units 04:31 04:31 WBC 4.29 (4.23-9.07) K/mm3 RBC 4.43 L (4.63-6.08) M/mm3 Hgb 14.6 (13.7-17.5) gm/dl Hct 43.0 (40.1-51.0) % MCV 97.1 H (79.0-92.2) fl MCH 33.0 H (25.7-32.2) pg MCHC 34.0 (32.2-35.5) g/dl RDW Std Deviation 43.0 (35.1-43.9) fL Plt Count 103 L (163-337) K/mm3 MPV 10.9 (9.4-12.3) fl Neut % (Auto) 84.6 H (34.0-67.9) % Lymph % (Auto) 9.6 L (21.8-53.1) % [place] % (Auto) 5.6 (5.3-12.2) % Eos % (Auto) 0 L (0.8-7.0) Baso % (Auto) 0.0 L (0.1-1.2) % Neut # (Auto) 3.63 (1.78-5.38) K/mm3 Lymph # (Auto) 0.41 L (1.32-3.57) K/mm3 [place] # (Auto) 0.24 L (0.30-0.82) K/mm3 Eos # (Auto) 0.00 L (0.04-0.54) K/mm3 Baso # (Auto) 0.00 L (0.01-0.08) K/mm3 Sodium 137 (136-145) mEq/L Potassium 3.7 (3.5-5.1) mEq/L Chloride 103 (98-107) mEq/L Carbon Dioxide 25 (21-32) mEq/L Anion Gap 12.7 (5-15) BUN 19 H (7-18) mg/dL Creatinine 0.8 (0.7-1.3) mg/dL Est Cr Clr Drug Dosing 112.36 mL/min Estimated GFR (MDRD) > 60 (>60) mL/min BUN/Creatinine Ratio 23.8 H (14-18) Glucose 139 H (70-99) mg/dL Calcium 7.7 L (8.5-10.1) mg/dL Magnesium 2.2 (1.8-2.4) mg/dL Total Bilirubin 0.6 (0.2-1.0) mg/dL AST 47 H (15-37) U/L ALT 39 (16-63) U/L Alkaline Phosphatase 39 L (46-116) U/L C-Reactive Protein 7.8 H* (<1.0) mg/dL Total Protein 5.9 L (6.4-8.2) g/dl Albumin 2.3 L (3.4-5.0) g/dl Globulin 3.6 gm/dL Albumin/Globulin Ratio 0.6 L (1-2) Loki Results Last 24 Hours: Microbiology 10/22/20 21:10 Blood Culture - Preliminary Blood - Venous - Lab Draw 10/22/20 21:05 Blood Culture - Preliminary Blood - Venous Med Orders - Current: Current Medications Acetaminophen (Acetaminophen 325 Mg Tab) 650 mg PO Q4H PRN PRN Reason: Pain (Mild 1-3)/fever Acetaminophen/Codeine Phosphate (Acetaminophen/Codeine 300-30 Mg Tab) 2 tab PO Q4H PRN PRN Reason: Cough Al Hydroxide/Mg Hydroxide (Aluminum Hydroxide/Magnesium Hydroxide/Simethicone Susp 30 Ml Cup) 30 ml PO Q4H PRN PRN Reason: Heartburn Last Admin: 10/23/20 19:24 Dose: 30 ml Documented by: Albuterol (Albuterol 6.7 Gm Inhaler) 0 gm INH Q2H PRN PRN Reason: Shortness of Breath Last Admin: 10/24/20 15:16 Dose: 2 puff Documented by: Albuterol/Ipratropium (Albuterol/Ipratropium 3.0-0.5 Mg/3 Ml Neb Soln) 3 ml NEB Q4H PRN PRN Reason: Shortness Of Breath/wheezing Azathioprine (Azathioprine 50 Mg Tab) 100 mg PO DAILY [facility] Last Admin: 10/24/20 08:27 Dose: 100 mg Documented by: Benzonatate (Benzonatate 100 Mg Cap) 200 mg PO TID [facility] Last Admin: 10/24/20 14:36 Dose: 200 mg Documented by: Dexamethasone (Dexamethasone 4 Mg Tab) 6 mg PO DAILY [facility] Stop: 10/31/20 09:01 Last Admin: 10/24/20 08:27 Dose: 6 mg Documented by: Famotidine (Famotidine 20 Mg Tab) 20 mg PO BID [facility] Last Admin: 10/24/20 08:25 Dose: 20 mg Documented by: Fish Oil (Fish Oil/[place]-3 Fatty Acids 1 Gm Cap) 1 gm PO BEDTIME [facility] Last Admin: 10/23/20 21:03 Dose: 1 gm Documented by: Guaifenesin (Guaifenesin 600 Mg Tab.Er) 600 mg PO TID [facility] Last Admin: 10/24/20 14:36 Dose: 600 mg Documented by: Remdesivir 100 mg/ Sodium (Chloride) 100 mls @ 100 mls/hr IV Q24H [facility] Stop: 10/26/20 22:59 Last Admin: 10/23/20 21:04 Dose: 100 mls/hr Documented by: Lisinopril (Lisinopril 20 Mg Tab) 20 mg PO DAILY [facility] Last Admin: 10/24/20 08:25 Dose: 20 mg Documented by: Melatonin (Melatonin 3 Mg Tab) 6 mg PO BEDTIME PRN PRN Reason: Insomnia Ondansetron HCl (Ondansetron 4 Mg/2 Ml Sdv) 4 mg IV Q6H PRN PRN Reason: Nausea/Vomiting Zinc Sulfate (Zinc Sulfate 220 Mg Cap) 220 mg PO DAILY [facility] Last Admin: 10/24/20 08:25 Dose: 220 mg Documented by: Discontinued Medications Albuterol (Albuterol 6.7 Gm Inhaler) 2 gm INH Q2H PRN PRN Reason: Shortness of Breath Azathioprine (Azathioprine 50 Mg Tab) 50 mg PO BID [facility] Last Admin: 10/23/20 10:24 Dose: 50 mg Documented by: Azathioprine (Azathioprine 50 Mg Tab) 50 mg PO ONETIME ONE Stop: 10/23/20 10:46 Last Admin: 10/23/20 11:14 Dose: 50 mg Documented by: Azathioprine (Azathioprine 50 Mg Tab) 100 mg PO BID [facility] Last Admin: 10/23/20 21:24 Dose: Not Given Documented by: Dexamethasone (Dexamethasone 10 Mg/Ml Sdv) 6 mg IVPUSH ONETIME STA Stop: 10/22/20 20:38 Last Admin: 10/22/20 21:19 Dose: 6 mg Documented by: Dexamethasone (Dexamethasone 10 Mg/Ml Sdv) 6 mg IVPUSH Q24H [facility] Stop: 10/31/20 21:01 Remdesivir 200 mg/ Sodium (Chloride) 250 mls @ 250 mls/hr IV ONETIME ONE Stop: 10/22/20 20:38 Last Admin: 10/22/20 21:19 Dose: 250 mls/hr Documented by: Non-Formulary Medication (Glucos Sul 2kcl/Msm/Chond/C/Mn [Glucosamine Chondroitin Cap]) 2 each PO BEDTIME [facility] Sodium Phosphate (Phosphorus #1 250 Mg Tab) 250 mg PO DAILY [facility] Last Admin: 10/24/20 08:25 Dose: 250 mg Documented by: - Exam Quality Assessment: Supplemental Oxygen General: Alert, Oriented HEENT: Pupils Equal, Mucous Membr. Moist/[place] Neck: Supple Lungs: Normal Respiratory Effort, Crackles (Bibasilar) Cardiovascular: Regular Rate, Regular Rhythm GI/Abdominal Exam: Normal Bowel Sounds, Soft, Non-Tender, No Distention Extremities: Normal Inspection, Normal Range of Motion, No Pedal Edema Skin: Warm, Dry, Intact Psy/Mental Status: Alert, Normal Affect, Normal Mood - Patient Data Lab Results Last 24 hrs: Laboratory Results - last 24 hr 10/24/20 10/24/20 Range/Units 04:31 04:31 WBC 4.29 (4.23-9.07) K/mm3 RBC 4.43 L (4.63-6.08) M/mm3 Hgb 14.6 (13.7-17.5) gm/dl Hct 43.0 (40.1-51.0) % MCV 97.1 H (79.0-92.2) fl MCH 33.0 H (25.7-32.2) pg MCHC 34.0 (32.2-35.5) g/dl RDW Std Deviation 43.0 (35.1-43.9) fL Plt Count 103 L (163-337) K/mm3 MPV 10.9 (9.4-12.3) fl Neut % (Auto) 84.6 H (34.0-67.9) % Lymph % (Auto) 9.6 L (21.8-53.1) % [place] % (Auto) 5.6 (5.3-12.2) % Eos % (Auto) 0 L (0.8-7.0) Baso % (Auto) 0.0 L (0.1-1.2) % Neut # (Auto) 3.63 (1.78-5.38) K/mm3 Lymph # (Auto) 0.41 L (1.32-3.57) K/mm3 [place] # (Auto) 0.24 L (0.30-0.82) K/mm3 Eos # (Auto) 0.00 L (0.04-0.54) K/mm3 Baso # (Auto) 0.00 L (0.01-0.08) K/mm3 Sodium 137 (136-145) mEq/L Potassium 3.7 (3.5-5.1) mEq/L Chloride 103 (98-107) mEq/L Carbon Dioxide 25 (21-32) mEq/L Anion Gap 12.7 (5-15) BUN 19 H (7-18) mg/dL Creatinine 0.8 (0.7-1.3) mg/dL Est Cr Clr Drug Dosing 112.36 mL/min Estimated GFR (MDRD) > 60 (>60) mL/min BUN/Creatinine Ratio 23.8 H (14-18) Glucose 139 H (70-99) mg/dL Calcium 7.7 L (8.5-10.1) mg/dL Magnesium 2.2 (1.8-2.4) mg/dL Total Bilirubin 0.6 (0.2-1.0) mg/dL AST 47 H (15-37) U/L ALT 39 (16-63) U/L Alkaline Phosphatase 39 L (46-116) U/L C-Reactive Protein 7.8 H* (<1.0) mg/dL Total Protein 5.9 L (6.4-8.2) g/dl Albumin 2.3 L (3.4-5.0) g/dl Globulin 3.6 gm/dL Albumin/Globulin Ratio 0.6 L (1-2) Result Diagrams: 10/24/20 04:31 10/24/20 04:31 Loki Results Last 24 hrs: Microbiology 10/22/20 21:10 Blood Culture - Preliminary Blood - Venous - Lab Draw 10/22/20 21:05 Blood Culture - Preliminary Blood - Venous Sepsis Event Note - Evaluation Sepsis Screening Result: Possible Sepsis Risk - Focused Exam Vital Signs: Vital Signs Temp Pulse Resp BP Pulse Ox Pulse Ox 10/24/20 15:17 90 L 10/24/20 13:17 94 L 10/24/20 13:04 97 10/24/20 11:17 98.2 F 70 16 93/59 L 90 L 10/24/20 10:01 92 L 10/24/20 09:36 97 10/24/20 08:34 97.9 F 62 16 101/62 92 L 10/24/20 08:25 109/69 10/24/20 04:41 97.9 F 58 L 22 H 109/65 94 L - Problem List & Annotations (1) Acute respiratory failure due to COVID-19 SNOMED Code(s): 821029850 Code(s): U07.1 - COVID-19; J96.00 - ACUTE RESPIRATORY FAILURE, UNSP W HYPOXIA OR HYPERCAPNIA Status: Acute Current Visit: Yes (2) Bladder cancer SNOMED Code(s): 709925722 Code(s): C67.9 - MALIGNANT NEOPLASM OF BLADDER, UNSPECIFIED Status: Resolved Current Visit: Yes (3) Hypertension SNOMED Code(s): 41140646 Code(s): I10 - ESSENTIAL (PRIMARY) HYPERTENSION Status: Acute Current Visit: Yes - Problem List Review Problem List Initiated/Reviewed/Updated: Yes - My Orders Last 24 Hours: My Active Orders 10/23/20 19:17 Pulse Oximetry Continuous Monitoring [OM.PC] Routine 10/23/20 20:50 Acetaminophen/Codeine [Tylenol with Codeine No.3 300MG/30MG] 2 tab PO Q4H PRN 10/23/20 21:00 Benzonatate [Tessalon Perles] 200 mg PO TID Fish Oil/[place]-3 Fatty Acids [Fish Oil] 1 gm PO BEDTIME guaiFENesin [Mucinex] 600 mg PO TID 10/23/20 22:00 Remdesivir 100 mg Sodium Chloride 0.9% [Normal Saline] 100 ml IV Q24H 10/24/20 09:00 azaTHIOprine [Imuran] 100 mg PO DAILY - Plan Plan:: 60-year-old with remote history of bladder cancer presents to the emergency department after a little over 1 week of symptoms consistent with COVID-19. Respiratory failure secondary to COVID-19 -Diagnosed with COVID-19 on 10/14/2020 -WBC 4.29, D-dimer 0.63, albumin 2.3.0, proBNP 249 -Requiring high flow nasal cannula at 50 L, 50% he is at risk for worsening condition with his obesity. -Remdesivir and dexamethasone. May consider baricitinib if requiring any more oxygen supplementation. -I-S, Acapella, respiratory therapy consult, titrate FiO2 to keep SPO2 up to 92% -Blood cultures pending -Baricitinib not started because he is already on 2 immunosuppressants, Imuran and dexamethasone, and I felt the risk of immunosuppression was greater than possible benefit at this time. Hypertension Well controlled -Continue home meds Dermatomyositis -Currently on Imuran will continue it during hospitalization. 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
[2020-10-24] MEDS: Fish Oil/Omega-3 Fatty Acids 1 Gm Cap PO SCH (21:12)
[2020-10-24] MEDS: REMDESIVIR 100 MG in Sodium Chloride 0.9% 100 ML IV SCH (21:13)
[2020-10-24] MEDS: Aluminum Hydroxide/Magnesium Hydroxide/Simethicone Susp 30 ML Cup PO PRN (22:26)
[2020-10-25] MEDS: Albuterol 6.7 GM Inhaler INH PRN ×3 (05:40→17:21)
[2020-10-25] MEDS: Acetaminophen 325 MG Tab PO PRN (05:49)
[2020-10-25] MEDS ORDERED: Enoxaparin 120 MG/0.8 ML Syringe SUBCUT SCH (08:00)
[2020-10-25] MEDS ORDERED: Sodium Chloride 0.9% 10 ML Syringe FLUSH ONE (08:02)
[2020-10-25] MEDS ORDERED: Iopamidol 755 Mg/ML 100 ML Bottle IVPUSH ONE (08:02)
[2020-10-25] MEDS ORDERED: Sodium Chloride 0.9% 100 ML IV SCH (08:15)
[2020-10-25] MEDS: Dexamethasone 4 MG Tab PO SCH (08:26)
[2020-10-25] MEDS: Famotidine 20 MG Tab PO SCH ×2 (08:26→21:15)
[2020-10-25] MEDS: Zinc Sulfate 220 MG Cap PO SCH (08:26)
[2020-10-25] MEDS: guaiFENesin 600 MG Tab.ER PO SCH ×3 (08:26→21:15)
[2020-10-25] MEDS: Benzonatate 100 MG Cap PO SCH ×3 (08:26→21:15)
[2020-10-25] MEDS: Lisinopril 20 MG Tab PO SCH (08:27)
[2020-10-25] MEDS ORDERED: Enoxaparin 40 MG/0.4 ML Syringe SUBCUT SCH (09:00)
[2020-10-25] MEDS ORDERED: Potassium Chloride 20 MEQ Tab.ER PO ONE (09:18)
[2020-10-25] MEDS ORDERED: LORazepam 1 MG Tab PO ONE (09:21)
[2020-10-25] MEDS ORDERED: LORazepam 2 MG/ML SDV IVPUSH PRN (10:00)
--- NOTE | 2020-10-25 11:07 | CT ---
CT chest Technique: Multiple axial sections through the chest were obtained. Intravenous contrast was utilized. Study has been performed as a pulmonary angiogram protocol. Comparison: Prior chest x-ray of 10/22/20, no prior chest CT is available. Findings: Very small filling defect is seen within the distal subsegmental branch within the right lower lung compatible with a very minimal thrombus. Pulmonary embolism is seen within the distal right main pulmonary artery extending into the segmental branch within the right upper lung and within the segmental branch of the right lower lung. Additional pulmonary emboli are seen within a segmental and subsegmental branch within the left lower lung. Thoracic aorta shows no aneurysm. Small lymph nodes are seen within the mediastinum which are felt to be within normal limits. No pericardial thickening is seen. Small portion of the visualized upper abdominal structures show nothing acute. Lung window settings were obtained which show diffuse mostly groundglass parenchymal densities throughout both lungs. Findings are highly suspicious for COVID pneumonia. Bone window settings were reviewed which show scattered degenerative change within the spine. No acute osseous abnormality is appreciated. Impression: 1. Findings compatible with bilateral pulmonary emboli. 2. Diffuse findings of COVID pneumonia as described above. 3. Other findings believed to be chronic. Diagnostic code #5
--- NOTE | 2020-10-25 16:46 | PCM.PN ---
- General Info Date of Service: 10/25/20 Admission Dx/Problem (Free Text): COVID-19 pneumonia Subjective Update: Patient states he is feeling less short of breath and generally better. Unfortunately, his D-dimer increased dramatically to 26 and CTA of the chest was positive for PE. Functional Status: Reports: Pain Controlled - Review of Systems General: Reports: No Symptoms HEENT: Reports: No Symptoms Pulmonary: Reports: No Symptoms - Patient Data Vitals - Most Recent: Last Vital Signs Temp 97.7 F 10/25/20 11:57 Pulse 67 10/25/20 12:04 Resp 16 10/25/20 11:57 BP 91/60 10/25/20 11:57 Pulse Ox 90 L 10/25/20 15:00 Weight - Most Recent: 241 lb 3.2 oz I&O - Last 24 Hours: Intake & Output 10/25/20 10/25/20 10/25/20 06:59 14:59 22:59 Intake Total 900 240 Output Total 2050 Balance -1150 240 Lab Results Last 24 Hours: Laboratory Results - last 24 hr 10/25/20 10/25/20 10/25/20 Range/Units 06:11 06:11 06:11 WBC 6.38 (4.23-9.07) K/mm3 RBC 4.67 (4.63-6.08) M/mm3 Hgb 15.3 (13.7-17.5) gm/dl Hct 45.5 (40.1-51.0) % MCV 97.4 H (79.0-92.2) fl MCH 32.8 H (25.7-32.2) pg MCHC 33.6 (32.2-35.5) g/dl RDW Std Deviation 43.6 (35.1-43.9) fL Plt Count 122 L (163-337) K/mm3 MPV 10.6 (9.4-12.3) fl Neut % (Auto) 86.8 H (34.0-67.9) % Lymph % (Auto) 8.6 L (21.8-53.1) % [place] % (Auto) 3.9 L (5.3-12.2) % Eos % (Auto) 0.2 L (0.8-7.0) Baso % (Auto) 0.2 (0.1-1.2) % Neut # (Auto) 5.54 H (1.78-5.38) K/mm3 Lymph # (Auto) 0.55 L (1.32-3.57) K/mm3 [place] # (Auto) 0.25 L (0.30-0.82) K/mm3 Eos # (Auto) 0.01 L (0.04-0.54) K/mm3 Baso # (Auto) 0.01 (0.01-0.08) K/mm3 Manual Slide Review Abnormal smear D-Dimer, Quantitative 26.26 H (0.19-0.50) mg/L Sodium 139 (136-145) mEq/L Potassium 3.3 L (3.5-5.1) mEq/L Chloride 101 (98-107) mEq/L Carbon Dioxide 28 (21-32) mEq/L Anion Gap 13.3 (5-15) BUN 23 H (7-18) mg/dL Creatinine 0.8 (0.7-1.3) mg/dL Est Cr Clr Drug Dosing 112.36 mL/min Estimated GFR (MDRD) > 60 (>60) mL/min BUN/Creatinine Ratio 28.8 H (14-18) Glucose 122 H (70-99) mg/dL Calcium 7.8 L (8.5-10.1) mg/dL Magnesium 2.2 (1.8-2.4) mg/dL Total Bilirubin 1.0 (0.2-1.0) mg/dL AST 41 H (15-37) U/L ALT 41 (16-63) U/L Alkaline Phosphatase 50 (46-116) U/L C-Reactive Protein 4.0 H* (<1.0) mg/dL Total Protein 6.1 L (6.4-8.2) g/dl Albumin 2.5 L (3.4-5.0) g/dl Globulin 3.6 gm/dL Albumin/Globulin Ratio 0.7 L (1-2) Loki Results Last 24 Hours: Microbiology 10/22/20 21:10 Blood Culture - Preliminary Blood - Venous - Lab Draw 10/22/20 21:05 Blood Culture - Preliminary Blood - Venous Med Orders - Current: Current Medications Acetaminophen (Acetaminophen 325 Mg Tab) 650 mg PO Q4H PRN PRN Reason: Pain (Mild 1-3)/fever Last Admin: 10/25/20 05:49 Dose: 650 mg Documented by: Acetaminophen/Codeine Phosphate (Acetaminophen/Codeine 300-30 Mg Tab) 2 tab PO Q4H PRN PRN Reason: Cough Al Hydroxide/Mg Hydroxide (Aluminum Hydroxide/Magnesium Hydroxide/Simethicone Susp 30 Ml Cup) 30 ml PO Q4H PRN PRN Reason: Heartburn Last Admin: 10/24/20 22:26 Dose: 30 ml Documented by: Albuterol (Albuterol 6.7 Gm Inhaler) 0 gm INH Q2H PRN PRN Reason: Shortness of Breath Last Admin: 10/25/20 08:20 Dose: 2 puff Documented by: Albuterol/Ipratropium (Albuterol/Ipratropium 3.0-0.5 Mg/3 Ml Neb Soln) 3 ml NEB Q4H PRN PRN Reason: Shortness Of Breath/wheezing Azathioprine (Azathioprine 50 Mg Tab) 100 mg PO DAILY [facility] Last Admin: 10/25/20 08:26 Dose: 100 mg Documented by: Benzonatate (Benzonatate 100 Mg Cap) 200 mg PO TID [facility] Last Admin: 10/25/20 14:17 Dose: 200 mg Documented by: Dexamethasone (Dexamethasone 4 Mg Tab) 6 mg PO DAILY [facility] Stop: 10/31/20 09:01 Last Admin: 10/25/20 08:26 Dose: 6 mg Documented by: Enoxaparin Sodium (Enoxaparin 120 Mg/0.8 Ml Syringe) 110 mg SUBCUT Q12H [facility] Famotidine (Famotidine 20 Mg Tab) 20 mg PO BID [facility] Last Admin: 10/25/20 08:26 Dose: 20 mg Documented by: Fish Oil (Fish Oil/[place]-3 Fatty Acids 1 Gm Cap) 1 gm PO BEDTIME [facility] Last Admin: 10/24/20 21:12 Dose: 1 gm Documented by: Guaifenesin (Guaifenesin 600 Mg Tab.Er) 600 mg PO TID [facility] Last Admin: 10/25/20 14:18 Dose: 600 mg Documented by: Remdesivir 100 mg/ Sodium (Chloride) 100 mls @ 100 mls/hr IV Q24H [facility] Stop: 10/26/20 22:59 Last Admin: 10/24/20 21:13 Dose: 100 mls/hr Documented by: Lisinopril (Lisinopril 20 Mg Tab) 20 mg PO DAILY [facility] Last Admin: 10/25/20 08:27 Dose: Not Given Documented by: Lorazepam (Lorazepam 2 Mg/Ml Sdv) 0.5 mg IVPUSH ONETIME PRN PRN Reason: SEE COMMENTS Stop: 10/25/20 18:00 Melatonin (Melatonin 3 Mg Tab) 6 mg PO BEDTIME PRN PRN Reason: Insomnia Ondansetron HCl (Ondansetron 4 Mg/2 Ml Sdv) 4 mg IV Q6H PRN PRN Reason: Nausea/Vomiting Last Admin: 10/25/20 10:22 Dose: 4 mg Documented by: Zinc Sulfate (Zinc Sulfate 220 Mg Cap) 220 mg PO DAILY [facility] Last Admin: 10/25/20 08:26 Dose: 220 mg Documented by: Discontinued Medications Albuterol (Albuterol 6.7 Gm Inhaler) 2 gm INH Q2H PRN PRN Reason: Shortness of Breath Azathioprine (Azathioprine 50 Mg Tab) 50 mg PO BID [facility] Last Admin: 10/23/20 10:24 Dose: 50 mg Documented by: Azathioprine (Azathioprine 50 Mg Tab) 50 mg PO ONETIME ONE Stop: 10/23/20 10:46 Last Admin: 10/23/20 11:14 Dose: 50 mg Documented by: Azathioprine (Azathioprine 50 Mg Tab) 100 mg PO BID [facility] Last Admin: 10/23/20 21:24 Dose: Not Given Documented by: Dexamethasone (Dexamethasone 10 Mg/Ml Sdv) 6 mg IVPUSH ONETIME STA Stop: 10/22/20 20:38 Last Admin: 10/22/20 21:19 Dose: 6 mg Documented by: Dexamethasone (Dexamethasone 10 Mg/Ml Sdv) 6 mg IVPUSH Q24H [facility] Stop: 10/31/20 21:01 Enoxaparin Sodium (Enoxaparin 40 Mg/0.4 Ml Syringe) 40 mg SUBCUT DAILY [facility] Enoxaparin Sodium (Enoxaparin 120 Mg/0.8 Ml Syringe) 110 mg SUBCUT Q12H [facility] Last Admin: 10/25/20 08:25 Dose: 110 mg Documented by: Remdesivir 200 mg/ Sodium (Chloride) 250 mls @ 250 mls/hr IV ONETIME ONE Stop: 10/22/20 20:38 Last Admin: 10/22/20 21:19 Dose: 250 mls/hr Documented by: Sodium Chloride (Normal Saline) 100 mls @ 60 mls/hr IV ASDIRECTED [facility] Stop: 10/25/20 10:30 Last Admin: 10/25/20 10:49 Dose: 60 mls/hr Documented by: Iopamidol (Iopamidol 755 Mg/Ml 100 Ml Bottle) 100 ml IVPUSH ONETIME ONE Stop: 10/25/20 08:03 Last Admin: 10/25/20 10:49 Dose: 100 ml Documented by: Lorazepam (Lorazepam 1 Mg Tab) 1 mg PO ONETIME ONE Stop: 10/25/20 09:22 Last Admin: 10/25/20 09:37 Dose: 1 mg Documented by: Non-Formulary Medication (Glucos Sul 2kcl/Msm/Chond/C/Mn [Glucosamine Chondroitin Cap]) 2 each PO BEDTIME [facility] Potassium Chloride (Potassium Chloride 20 Meq Tab.Er) 40 meq PO ONETIME ONE Stop: 10/25/20 09:19 Last Admin: 10/25/20 09:37 Dose: 40 meq Documented by: Sodium Chloride (Sodium Chloride 0.9% 10 Ml Syringe) 10 ml FLUSH ONETIME ONE Stop: 10/25/20 08:03 Last Admin: 10/25/20 10:49 Dose: 10 ml Documented by: Sodium Phosphate (Phosphorus #1 250 Mg Tab) 250 mg PO DAILY [facility] Last Admin: 10/24/20 08:25 Dose: 250 mg Documented by: - Exam Quality Assessment: Supplemental Oxygen General: Alert, Oriented HEENT: Pupils Equal, Mucous Membr. Moist/[place] Neck: Supple Lungs: Normal Respiratory Effort, Crackles (Bibasilar) Cardiovascular: Regular Rate, Regular Rhythm GI/Abdominal Exam: Normal Bowel Sounds, Soft, Non-Tender Extremities: Normal Inspection, Normal Range of Motion, Non-Tender, No Pedal Jared ma Skin: Warm, Dry, Intact Psy/Mental Status: Alert, Normal Affect, Normal Mood - Patient Data Lab Results Last 24 hrs: Laboratory Results - last 24 hr 10/25/20 10/25/20 10/25/20 Range/Units 06:11 06:11 06:11 WBC 6.38 (4.23-9.07) K/mm3 RBC 4.67 (4.63-6.08) M/mm3 Hgb 15.3 (13.7-17.5) gm/dl Hct 45.5 (40.1-51.0) % MCV 97.4 H (79.0-92.2) fl MCH 32.8 H (25.7-32.2) pg MCHC 33.6 (32.2-35.5) g/dl RDW Std Deviation 43.6 (35.1-43.9) fL Plt Count 122 L (163-337) K/mm3 MPV 10.6 (9.4-12.3) fl Neut % (Auto) 86.8 H (34.0-67.9) % Lymph % (Auto) 8.6 L (21.8-53.1) % [place] % (Auto) 3.9 L (5.3-12.2) % Eos % (Auto) 0.2 L (0.8-7.0) Baso % (Auto) 0.2 (0.1-1.2) % Neut # (Auto) 5.54 H (1.78-5.38) K/mm3 Lymph # (Auto) 0.55 L (1.32-3.57) K/mm3 [place] # (Auto) 0.25 L (0.30-0.82) K/mm3 Eos # (Auto) 0.01 L (0.04-0.54) K/mm3 Baso # (Auto) 0.01 (0.01-0.08) K/mm3 Manual Slide Review Abnormal smear D-Dimer, Quantitative 26.26 H (0.19-0.50) mg/L Sodium 139 (136-145) mEq/L Potassium 3.3 L (3.5-5.1) mEq/L Chloride 101 (98-107) mEq/L Carbon Dioxide 28 (21-32) mEq/L Anion Gap 13.3 (5-15) BUN 23 H (7-18) mg/dL Creatinine 0.8 (0.7-1.3) mg/dL Est Cr Clr Drug Dosing 112.36 mL/min Estimated GFR (MDRD) > 60 (>60) mL/min BUN/Creatinine Ratio 28.8 H (14-18) Glucose 122 H (70-99) mg/dL Calcium 7.8 L (8.5-10.1) mg/dL Magnesium 2.2 (1.8-2.4) mg/dL Total Bilirubin 1.0 (0.2-1.0) mg/dL AST 41 H (15-37) U/L ALT 41 (16-63) U/L Alkaline Phosphatase 50 (46-116) U/L C-Reactive Protein 4.0 H* (<1.0) mg/dL Total Protein 6.1 L (6.4-8.2) g/dl Albumin 2.5 L (3.4-5.0) g/dl Globulin 3.6 gm/dL Albumin/Globulin Ratio 0.7 L (1-2) Result Diagrams: 10/25/20 06:11 10/25/20 06:11 Loki Results Last 24 hrs: Microbiology 10/22/20 21:10 Blood Culture - Preliminary Blood - Venous - Lab Draw 10/22/20 21:05 Blood Culture - Preliminary Blood - Venous Imaging Impressions Last 24 hrs: CTA of chest: 1. Findings compatible with bilateral pulmonary emboli. 2. Diffuse findings of Covid pneumonia Sepsis Event Note - Evaluation Sepsis Screening Result: No Definite Risk - Focused Exam Vital Signs: Vital Signs Temp Pulse Pulse Resp BP Pulse Ox Pulse Ox 10/25/20 15:00 90 L 10/25/20 12:04 67 91 L 10/25/20 11:57 97.7 F 16 91/60 10/25/20 10:13 94 L 10/25/20 08:21 96 10/25/20 07:45 98.1 F 107 H 16 100/54 L 92 L 10/25/20 05:40 90 L - Problem List & Annotations (1) Acute respiratory failure due to COVID-19 SNOMED Code(s): 712374015 Code(s): U07.1 - COVID-19; J96.00 - ACUTE RESPIRATORY FAILURE, UNSP W HYPOXIA OR HYPERCAPNIA Status: Acute Current Visit: Yes (2) Bladder cancer SNOMED Code(s): 580978195 Code(s): C67.9 - MALIGNANT NEOPLASM OF BLADDER, UNSPECIFIED Status: Resolved Current Visit: Yes (3) Hypertension SNOMED Code(s): 62070861 Code(s): I10 - ESSENTIAL (PRIMARY) HYPERTENSION Status: Acute Current Visit: Yes - Problem List Review Problem List Initiated/Reviewed/Updated: Yes - My Orders Last 24 Hours: My Active Orders 10/25/20 10:00 LORazepam [Ativan] 0.5 mg IVPUSH ONETIME PRN - Plan Plan:: 60-year-old with remote history of bladder cancer presents to the emergency department after a little over 1 week of symptoms consistent with COVID-19. Respiratory failure secondary to COVID-19 -Diagnosed with COVID-19 on 10/14/2020 -WBC 6.4, D-dimer 26.26, albumin 2.5, -High flow nasal cannula at 50 L/min and FiO2 of 45%. This is down from 50 L and 60% yesterday morning.. -Remdesivir and dexamethasone. -I-S, Acapella, respiratory therapy consult, titrate FiO2 to keep SPO2 up to 92% -Blood cultures pending -Baricitinib not started because he is already on 2 immunosuppressants, Imuran and dexamethasone, and I felt the risk of immunosuppression was greater than possible benefit at this time. Pulmonary embolism CTA of chest: 1. Findings compatible with bilateral pulmonary emboli. 2. Diffuse findings of Covid pneumonia -Unfortunately patient was initially not put on anticoagulation secondary to thrombocytopenia. He was started on Lovenox as soon as platelets increased above 100,000, but apparently that was not soon enough. -Start therapeutic Lovenox at 1 mg/kg twice daily. -Appears to be essentially asymptomatic. Hypertension Blood pressures a little low today. Systolic blood pressures are in the 90s. -Hold his lisinopril Dermatomyositis -Currently on Imuran will continue it during hospitalization. 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
[2020-10-25] MEDS: Aluminum Hydroxide/Magnesium Hydroxide/Simethicone Susp 30 ML Cup PO PRN (17:56)
[2020-10-25] MEDS: REMDESIVIR 100 MG in Sodium Chloride 0.9% 100 ML IV SCH (21:11)
[2020-10-25] MEDS: Enoxaparin 120 MG/0.8 ML Syringe SUBCUT SCH (21:13)
[2020-10-25] MEDS: Fish Oil/Omega-3 Fatty Acids 1 Gm Cap PO SCH (21:15)
--- NOTE | 2020-10-26 08:26 | PCM.PN ---
- General Info Date of Service: 10/26/20 Admission Dx/Problem (Free Text): COVID-19 pneumonia Subjective Update: Zaki states that he does not feel much different since yesterday. No fever or chills. Continues to be short of breath and has a cough. Functional Status: Reports: Pain Controlled - Review of Systems General: Reports: Fatigue HEENT: Reports: No Symptoms Pulmonary: Reports: Shortness of Breath, Cough Cardiovascular: Reports: No Symptoms Gastrointestinal: Reports: No Symptoms Musculoskeletal: Reports: No Symptoms Neurological: Reports: No Symptoms - Patient Data Vitals - Most Recent: Last Vital Signs Temp 97.5 F 10/26/20 08:15 Pulse 67 10/26/20 08:15 Resp 24 H 10/26/20 08:15 BP 99/62 10/26/20 08:15 Pulse Ox 86 L 10/26/20 08:15 Weight - Most Recent: 240 lb 3.2 oz I&O - Last 24 Hours: Intake & Output 10/25/20 10/26/20 10/26/20 22:59 06:59 14:59 Intake Total 880 700 Output Total 650 1200 Balance 230 -500 Lab Results Last 24 Hours: Laboratory Results - last 24 hr 10/25/20 10/26/20 10/26/20 Range/Units 06:11 07:17 07:17 WBC 7.84 (4.23-9.07) K/mm3 RBC 4.42 L (4.63-6.08) M/mm3 Hgb 14.8 (13.7-17.5) gm/dl Hct 43.2 (40.1-51.0) % MCV 97.7 H (79.0-92.2) fl MCH 33.5 H (25.7-32.2) pg MCHC 34.3 (32.2-35.5) g/dl RDW Std Deviation 43.8 (35.1-43.9) fL Plt Count 132 L (163-337) K/mm3 MPV 10.3 (9.4-12.3) fl Neut % (Auto) 88.4 H (34.0-67.9) % Lymph % (Auto) 7.7 L (21.8-53.1) % [place] % (Auto) 3.4 L (5.3-12.2) % Eos % (Auto) 0.1 L (0.8-7.0) Baso % (Auto) 0.1 (0.1-1.2) % Neut # (Auto) 6.93 H (1.78-5.38) K/mm3 Lymph # (Auto) 0.60 L (1.32-3.57) K/mm3 [place] # (Auto) 0.27 L (0.30-0.82) K/mm3 Eos # (Auto) 0.01 L (0.04-0.54) K/mm3 Baso # (Auto) 0.01 (0.01-0.08) K/mm3 Manual Slide Review Abnormal smear Normal smear Sodium 139 (136-145) mEq/L Potassium 4.0 (3.5-5.1) mEq/L Chloride 105 (98-107) mEq/L Carbon Dioxide 26 (21-32) mEq/L Anion Gap 12.0 (5-15) BUN 20 H (7-18) mg/dL Creatinine 0.8 (0.7-1.3) mg/dL Est Cr Clr Drug Dosing 112.36 mL/min Estimated GFR (MDRD) > 60 (>60) mL/min BUN/Creatinine Ratio 25.0 H (14-18) Glucose 106 H (70-99) mg/dL Calcium 7.8 L (8.5-10.1) mg/dL Magnesium 2.0 (1.8-2.4) mg/dL Total Bilirubin 1.3 H (0.2-1.0) mg/dL AST 33 (15-37) U/L ALT 37 (16-63) U/L Alkaline Phosphatase 55 (46-116) U/L C-Reactive Protein 2.9 H* (<1.0) mg/dL Total Protein 5.8 L (6.4-8.2) g/dl Albumin 2.4 L (3.4-5.0) g/dl Globulin 3.4 gm/dL Albumin/Globulin Ratio 0.7 L (1-2) Med Orders - Current: Current Medications Acetaminophen (Acetaminophen 325 Mg Tab) 650 mg PO Q4H PRN PRN Reason: Pain (Mild 1-3)/fever Last Admin: 10/25/20 05:49 Dose: 650 mg Documented by: Acetaminophen/Codeine Phosphate (Acetaminophen/Codeine 300-30 Mg Tab) 2 tab PO Q4H PRN PRN Reason: Cough Al Hydroxide/Mg Hydroxide (Aluminum Hydroxide/Magnesium Hydroxide/Simethicone Susp 30 Ml Cup) 30 ml PO Q4H PRN PRN Reason: Heartburn Last Admin: 10/25/20 17:56 Dose: 30 ml Documented by: Albuterol (Albuterol 6.7 Gm Inhaler) 0 gm INH Q2H PRN PRN Reason: Shortness of Breath Last Admin: 10/25/20 17:21 Dose: 2 puff Documented by: Albuterol/Ipratropium (Albuterol/Ipratropium 3.0-0.5 Mg/3 Ml Neb Soln) 3 ml NEB Q4H PRN PRN Reason: Shortness Of Breath/wheezing Azathioprine (Azathioprine 50 Mg Tab) 100 mg PO DAILY [facility] Last Admin: 10/25/20 08:26 Dose: 100 mg Documented by: Benzonatate (Benzonatate 100 Mg Cap) 200 mg PO TID [facility] Last Admin: 10/25/20 21:15 Dose: 200 mg Documented by: Dexamethasone (Dexamethasone 4 Mg Tab) 6 mg PO DAILY [facility] Stop: 10/31/20 09:01 Last Admin: 10/25/20 08:26 Dose: 6 mg Documented by: Enoxaparin Sodium (Enoxaparin 120 Mg/0.8 Ml Syringe) 110 mg SUBCUT Q12H [facility] Last Admin: 10/25/20 21:13 Dose: 110 mg Documented by: Famotidine (Famotidine 20 Mg Tab) 20 mg PO BID [facility] Last Admin: 10/25/20 21:15 Dose: 20 mg Documented by: Fish Oil (Fish Oil/[place]-3 Fatty Acids 1 Gm Cap) 1 gm PO BEDTIME [facility] Last Admin: 10/25/20 21:15 Dose: 1 gm Documented by: Guaifenesin (Guaifenesin 600 Mg Tab.Er) 600 mg PO TID [facility] Last Admin: 10/25/20 21:15 Dose: 600 mg Documented by: Remdesivir 100 mg/ Sodium (Chloride) 100 mls @ 100 mls/hr IV Q24H [facility] Stop: 10/26/20 22:59 Last Admin: 10/25/20 21:11 Dose: 100 mls/hr Documented by: Melatonin (Melatonin 3 Mg Tab) 6 mg PO BEDTIME PRN PRN Reason: Insomnia Ondansetron HCl (Ondansetron 4 Mg/2 Ml Sdv) 4 mg IV Q6H PRN PRN Reason: Nausea/Vomiting Last Admin: 10/25/20 10:22 Dose: 4 mg Documented by: Zinc Sulfate (Zinc Sulfate 220 Mg Cap) 220 mg PO DAILY [facility] Last Admin: 10/25/20 08:26 Dose: 220 mg Documented by: Discontinued Medications Albuterol (Albuterol 6.7 Gm Inhaler) 2 gm INH Q2H PRN PRN Reason: Shortness of Breath Azathioprine (Azathioprine 50 Mg Tab) 50 mg PO BID [facility] Last Admin: 10/23/20 10:24 Dose: 50 mg Documented by: Azathioprine (Azathioprine 50 Mg Tab) 50 mg PO ONETIME ONE Stop: 10/23/20 10:46 Last Admin: 10/23/20 11:14 Dose: 50 mg Documented by: Azathioprine (Azathioprine 50 Mg Tab) 100 mg PO BID [facility] Last Admin: 10/23/20 21:24 Dose: Not Given Documented by: Dexamethasone (Dexamethasone 10 Mg/Ml Sdv) 6 mg IVPUSH ONETIME STA Stop: 10/22/20 20:38 Last Admin: 10/22/20 21:19 Dose: 6 mg Documented by: Dexamethasone (Dexamethasone 10 Mg/Ml Sdv) 6 mg IVPUSH Q24H [facility] Stop: 10/31/20 21:01 Enoxaparin Sodium (Enoxaparin 40 Mg/0.4 Ml Syringe) 40 mg SUBCUT DAILY [facility] Enoxaparin Sodium (Enoxaparin 120 Mg/0.8 Ml Syringe) 110 mg SUBCUT Q12H [facility] Last Admin: 10/25/20 08:25 Dose: 110 mg Documented by: Remdesivir 200 mg/ Sodium (Chloride) 250 mls @ 250 mls/hr IV ONETIME ONE Stop: 10/22/20 20:38 Last Admin: 10/22/20 21:19 Dose: 250 mls/hr Documented by: Sodium Chloride (Normal Saline) 100 mls @ 60 mls/hr IV ASDIRECTED [facility] Stop: 10/25/20 10:30 Last Admin: 10/25/20 10:49 Dose: 60 mls/hr Documented by: Iopamidol (Iopamidol 755 Mg/Ml 100 Ml Bottle) 100 ml IVPUSH ONETIME ONE Stop: 10/25/20 08:03 Last Admin: 10/25/20 10:49 Dose: 100 ml Documented by: Lisinopril (Lisinopril 20 Mg Tab) 20 mg PO DAILY [facility] Last Admin: 10/25/20 08:27 Dose: Not Given Documented by: Lorazepam (Lorazepam 1 Mg Tab) 1 mg PO ONETIME ONE Stop: 10/25/20 09:22 Last Admin: 10/25/20 09:37 Dose: 1 mg Documented by: Lorazepam (Lorazepam 2 Mg/Ml Sdv) 0.5 mg IVPUSH ONETIME PRN PRN Reason: SEE COMMENTS Stop: 10/25/20 18:00 Non-Formulary Medication (Glucos Sul 2kcl/Msm/Chond/C/Mn [Glucosamine Chondroitin Cap]) 2 each PO BEDTIME [facility] Potassium Chloride (Potassium Chloride 20 Meq Tab.Er) 40 meq PO ONETIME ONE Stop: 10/25/20 09:19 Last Admin: 10/25/20 09:37 Dose: 40 meq Documented by: Sodium Chloride (Sodium Chloride 0.9% 10 Ml Syringe) 10 ml FLUSH ONETIME ONE Stop: 10/25/20 08:03 Last Admin: 10/25/20 10:49 Dose: 10 ml Documented by: Sodium Phosphate (Phosphorus #1 250 Mg Tab) 250 mg PO DAILY [facility] Last Admin: 10/24/20 08:25 Dose: 250 mg Documented by: - Exam Quality Assessment: Supplemental Oxygen (High flow nasal cannula) General: Alert, Oriented HEENT: Pupils Equal, Mucous Membr. Moist/[place] Lungs: Crackles (Bibasilar). No: Normal Respiratory Effort (Increased respiratory rate and effort) Cardiovascular: Regular Rate, Regular Rhythm GI/Abdominal Exam: Normal Bowel Sounds, Soft, Non-Tender Extremities: Normal Inspection, Normal Range of Motion, Non-Tender, No Pedal Edema, Normal Capillary Refill - Patient Data Lab Results Last 24 hrs: Laboratory Results - last 24 hr 10/25/20 10/26/20 10/26/20 Range/Units 06:11 07:17 07:17 WBC 7.84 (4.23-9.07) K/mm3 RBC 4.42 L (4.63-6.08) M/mm3 Hgb 14.8 (13.7-17.5) gm/dl Hct 43.2 (40.1-51.0) % MCV 97.7 H (79.0-92.2) fl MCH 33.5 H (25.7-32.2) pg MCHC 34.3 (32.2-35.5) g/dl RDW Std Deviation 43.8 (35.1-43.9) fL Plt Count 132 L (163-337) K/mm3 MPV 10.3 (9.4-12.3) fl Neut % (Auto) 88.4 H (34.0-67.9) % Lymph % (Auto) 7.7 L (21.8-53.1) % [place] % (Auto) 3.4 L (5.3-12.2) % Eos % (Auto) 0.1 L (0.8-7.0) Baso % (Auto) 0.1 (0.1-1.2) % Neut # (Auto) 6.93 H (1.78-5.38) K/mm3 Lymph # (Auto) 0.60 L (1.32-3.57) K/mm3 [place] # (Auto) 0.27 L (0.30-0.82) K/mm3 Eos # (Auto) 0.01 L (0.04-0.54) K/mm3 Baso # (Auto) 0.01 (0.01-0.08) K/mm3 Manual Slide Review Abnormal smear Normal smear Sodium 139 (136-145) mEq/L Potassium 4.0 (3.5-5.1) mEq/L Chloride 105 (98-107) mEq/L Carbon Dioxide 26 (21-32) mEq/L Anion Gap 12.0 (5-15) BUN 20 H (7-18) mg/dL Creatinine 0.8 (0.7-1.3) mg/dL Est Cr Clr Drug Dosing 112.36 mL/min Estimated GFR (MDRD) > 60 (>60) mL/min BUN/Creatinine Ratio 25.0 H (14-18) Glucose 106 H (70-99) mg/dL Calcium 7.8 L (8.5-10.1) mg/dL Magnesium 2.0 (1.8-2.4) mg/dL Total Bilirubin 1.3 H (0.2-1.0) mg/dL AST 33 (15-37) U/L ALT 37 (16-63) U/L Alkaline Phosphatase 55 (46-116) U/L C-Reactive Protein 2.9 H* (<1.0) mg/dL Total Protein 5.8 L (6.4-8.2) g/dl Albumin 2.4 L (3.4-5.0) g/dl Globulin 3.4 gm/dL Albumin/Globulin Ratio 0.7 L (1-2) Result Diagrams: 10/26/20 07:17 10/26/20 07:17 Sepsis Event Note - Evaluation Sepsis Screening Result: No Definite Risk - Focused Exam Vital Signs: Vital Signs Temp Pulse Pulse Resp BP Pulse Ox Pulse Ox 10/26/20 08:15 97.5 F 67 24 H 99/62 86 L 10/26/20 06:07 91 L 10/26/20 06:06 95 10/26/20 05:15 98.4 F 63 20 96/54 L 88 L 10/26/20 00:00 72 91 L 10/25/20 21:36 93 L 10/25/20 21:21 98.2 F 66 18 97/47 L 93 L - Problem List & Annotations (1) Acute respiratory failure due to COVID-19 SNOMED Code(s): 436023902 Code(s): U07.1 - COVID-19; J96.00 - ACUTE RESPIRATORY FAILURE, UNSP W HYPOXIA OR HYPERCAPNIA Status: Acute Current Visit: Yes (2) Bladder cancer SNOMED Code(s): 069227086 Code(s): C67.9 - MALIGNANT NEOPLASM OF BLADDER, UNSPECIFIED Status: Resolved Current Visit: Yes (3) Hypertension SNOMED Code(s): 00160053 Code(s): I10 - ESSENTIAL (PRIMARY) HYPERTENSION Status: Acute Current Visit: Yes - Problem List Review Problem List Initiated/Reviewed/Updated: Yes - My Orders Last 24 Hours: My Active Orders 10/27/20 05:11 C-REACTIVE PROTEIN [CHEM] AM CBC WITH AUTO DIFF [HEME] AM CMP [COMPREHENSIVE METABOLIC PN,CMP] [CHEM] AM DD [D-DIMER QUANTITATIVE] [COAG] AM MAGNESIUM [CHEM] AM PHOSPHORUS [CHEM] AM - Plan Plan:: 60-year-old with remote history of bladder cancer presents to the emergency department after a little over 1 week of symptoms consistent with COVID-19. Respiratory failure secondary to COVID-19 -Diagnosed with COVID-19 on 10/14/2020 -WBC 6.4, D-dimer 26.26, albumin 2.5, -Improved - high flow nasal cannula at 40 L/min and FiO2 of 45%. This is down from 50 L and 45% yesterday morning.. -Remdesivir and dexamethasone. -I-S, Acapella, respiratory therapy consult, titrate FiO2 to keep SPO2 up to 92% -Blood cultures pending -Baricitinib not started because he is already on 2 immunosuppressants, Imuran and dexamethasone, and I felt the risk of immunosuppression was greater than possible benefit at this time. Pulmonary embolism CTA of chest: 1. Findings compatible with bilateral pulmonary emboli. 2. Diffuse findings of Covid pneumonia -Unfortunately patient was initially not put on anticoagulation secondary to thrombocytopenia. He was started on Lovenox as soon as platelets increased above 100,000, but apparently that was not soon enough. -Lovenox at 1 mg/kg twice daily. -Appears to be essentially asymptomatic. Hypertension Blood pressures a little low today. Blood pressure ranges from low 90s systolic to 116 systolic and diastolic of 47-63 -Hold his lisinopril Dermatomyositis -On Imuran Hyponatremia Resolved Thrombocytopenia Platelets 132 VTE treated with Lovenox CODE STATUS full code
[2020-10-26] MEDS: Enoxaparin 120 MG/0.8 ML Syringe SUBCUT SCH ×2 (08:31→21:21)
[2020-10-26] MEDS: Famotidine 20 MG Tab PO SCH ×2 (08:32→21:21)
[2020-10-26] MEDS: Benzonatate 100 MG Cap PO SCH ×3 (08:32→21:22)
[2020-10-26] MEDS: Dexamethasone 4 MG Tab PO SCH (08:32)
[2020-10-26] MEDS: Zinc Sulfate 220 MG Cap PO SCH (08:32)
[2020-10-26] MEDS: guaiFENesin 600 MG Tab.ER PO SCH ×3 (08:33→21:22)
[2020-10-26] MEDS: Albuterol 6.7 GM Inhaler INH PRN ×3 (09:24→22:29)
[2020-10-26] MEDS: REMDESIVIR 100 MG in Sodium Chloride 0.9% 100 ML IV SCH (21:19)
[2020-10-26] MEDS: Fish Oil/Omega-3 Fatty Acids 1 Gm Cap PO SCH (21:22)
[2020-10-26] MEDS: Aluminum Hydroxide/Magnesium Hydroxide/Simethicone Susp 30 ML Cup PO PRN (22:54)
[2020-10-27] MEDS: Acetaminophen/Codeine 300-30 MG Tab PO PRN (07:32)
[2020-10-27] MEDS: Benzonatate 100 MG Cap PO SCH ×3 (09:52→20:13)
[2020-10-27] MEDS: Famotidine 20 MG Tab PO SCH ×2 (09:52→20:13)
[2020-10-27] MEDS: Zinc Sulfate 220 MG Cap PO SCH (09:52)
[2020-10-27] MEDS: guaiFENesin 600 MG Tab.ER PO SCH ×3 (09:54→20:12)
[2020-10-27] MEDS: Dexamethasone 4 MG Tab PO SCH (09:55)
[2020-10-27] MEDS: Enoxaparin 120 MG/0.8 ML Syringe SUBCUT SCH ×2 (09:56→20:14)
--- NOTE | 2020-10-27 14:30 | PCM.PN ---
- General Info Date of Service: 10/27/20 Admission Dx/Problem (Free Text): COVID-19 pneumonia - Review of Systems Systems Review Comment:: Pt is on 35L and 40% FIO2 high flow NC. He feels about the same as he did yesterday. He is laying on his side and proning some. He is also working with his incentive spirometer. He is on decadron day # 5. - Patient Data Vitals - Most Recent: Last Vital Signs Temp 97.9 F 10/27/20 07:30 Pulse 61 10/27/20 07:30 Resp 26 H 10/27/20 07:30 BP 103/51 L 10/27/20 07:30 Pulse Ox 94 L 10/27/20 08:55 Weight - Most Recent: 243 lb 3.2 oz I&O - Last 24 Hours: Intake & Output 10/26/20 10/27/20 10/27/20 22:59 06:59 14:59 Intake Total 1480 1300 Output Total 1200 800 Balance 280 500 Lab Results Last 24 Hours: Laboratory Results - last 24 hr 10/27/20 10/27/20 10/27/20 Range/Units 04:54 04:54 04:54 WBC 5.73 (4.23-9.07) K/mm3 RBC 4.20 L (4.63-6.08) M/mm3 Hgb 14.0 (13.7-17.5) gm/dl Hct 41.5 (40.1-51.0) % MCV 98.8 H (79.0-92.2) fl MCH 33.3 H (25.7-32.2) pg MCHC 33.7 (32.2-35.5) g/dl RDW Std Deviation 43.9 (35.1-43.9) fL Plt Count 117 L (163-337) K/mm3 MPV 10.5 (9.4-12.3) fl Neut % (Auto) 85.8 H (34.0-67.9) % Lymph % (Auto) 10.3 L (21.8-53.1) % [place] % (Auto) 3.0 L (5.3-12.2) % Eos % (Auto) 0.2 L (0.8-7.0) Baso % (Auto) 0.2 (0.1-1.2) % Neut # (Auto) 4.92 (1.78-5.38) K/mm3 Lymph # (Auto) 0.59 L (1.32-3.57) K/mm3 [place] # (Auto) 0.17 L (0.30-0.82) K/mm3 Eos # (Auto) 0.01 L (0.04-0.54) K/mm3 Baso # (Auto) 0.01 (0.01-0.08) K/mm3 Manual Slide Review Abnormal smear D-Dimer, Quantitative 5.83 H (0.19-0.50) mg/L Sodium 139 (136-145) mEq/L Potassium 3.9 (3.5-5.1) mEq/L Chloride 106 (98-107) mEq/L Carbon Dioxide 29 (21-32) mEq/L Anion Gap 7.9 (5-15) BUN 21 H (7-18) mg/dL Creatinine 0.8 (0.7-1.3) mg/dL Est Cr Clr Drug Dosing 112.36 mL/min Estimated GFR (MDRD) > 60 (>60) mL/min BUN/Creatinine Ratio 26.3 H (14-18) Glucose 112 H (70-99) mg/dL Calcium 7.8 L (8.5-10.1) mg/dL Phosphorus 2.8 (2.6-4.7) mg/dL Magnesium 2.1 (1.8-2.4) mg/dL Total Bilirubin 1.0 (0.2-1.0) mg/dL AST 24 (15-37) U/L ALT 39 (16-63) U/L Alkaline Phosphatase 54 (46-116) U/L C-Reactive Protein 3.6 H* (<1.0) mg/dL Total Protein 5.5 L (6.4-8.2) g/dl Albumin 2.2 L (3.4-5.0) g/dl Globulin 3.3 gm/dL Albumin/Globulin Ratio 0.7 L (1-2) Med Orders - Current: Current Medications Acetaminophen (Acetaminophen 325 Mg Tab) 650 mg PO Q4H PRN PRN Reason: Pain (Mild 1-3)/fever Last Admin: 10/25/20 05:49 Dose: 650 mg Documented by: Acetaminophen/Codeine Phosphate (Acetaminophen/Codeine 300-30 Mg Tab) 2 tab PO Q4H PRN PRN Reason: Cough Last Admin: 10/27/20 07:32 Dose: 2 tab Documented by: Al Hydroxide/Mg Hydroxide (Aluminum Hydroxide/Magnesium Hydroxide/Simethicone Susp 30 Ml Cup) 30 ml PO Q4H PRN PRN Reason: Heartburn Last Admin: 10/26/20 22:54 Dose: 30 ml Documented by: Albuterol (Albuterol 6.7 Gm Inhaler) 0 gm INH Q2H PRN PRN Reason: Shortness of Breath Last Admin: 10/26/20 22:29 Dose: 2 puff Documented by: Albuterol/Ipratropium (Albuterol/Ipratropium 3.0-0.5 Mg/3 Ml Neb Soln) 3 ml NEB Q4H PRN PRN Reason: Shortness Of Breath/wheezing Azathioprine (Azathioprine 50 Mg Tab) 100 mg PO DAILY [facility] Last Admin: 10/27/20 09:56 Dose: 100 mg Documented by: Benzonatate (Benzonatate 100 Mg Cap) 200 mg PO TID [facility] Last Admin: 10/27/20 09:52 Dose: 200 mg Documented by: Dexamethasone (Dexamethasone 4 Mg Tab) 6 mg PO DAILY [facility] Stop: 10/31/20 09:01 Last Admin: 10/27/20 09:55 Dose: 6 mg Documented by: Enoxaparin Sodium (Enoxaparin 120 Mg/0.8 Ml Syringe) 110 mg SUBCUT Q12H [facility] Last Admin: 10/27/20 09:56 Dose: 110 mg Documented by: Famotidine (Famotidine 20 Mg Tab) 20 mg PO BID [facility] Last Admin: 10/27/20 09:52 Dose: 20 mg Documented by: Fish Oil (Fish Oil/[place]-3 Fatty Acids 1 Gm Cap) 1 gm PO BEDTIME [facility] Last Admin: 10/26/20 21:22 Dose: 1 gm Documented by: Guaifenesin (Guaifenesin 600 Mg Tab.Er) 600 mg PO TID [facility] Last Admin: 10/27/20 09:54 Dose: 600 mg Documented by: Melatonin (Melatonin 3 Mg Tab) 6 mg PO BEDTIME PRN PRN Reason: Insomnia Ondansetron HCl (Ondansetron 4 Mg/2 Ml Sdv) 4 mg IV Q6H PRN PRN Reason: Nausea/Vomiting Last Admin: 10/25/20 10:22 Dose: 4 mg Documented by: Zinc Sulfate (Zinc Sulfate 220 Mg Cap) 220 mg PO DAILY [facility] Last Admin: 10/27/20 09:52 Dose: 220 mg Documented by: Discontinued Medications Albuterol (Albuterol 6.7 Gm Inhaler) 2 gm INH Q2H PRN PRN Reason: Shortness of Breath Azathioprine (Azathioprine 50 Mg Tab) 50 mg PO BID [facility] Last Admin: 10/23/20 10:24 Dose: 50 mg Documented by: Azathioprine (Azathioprine 50 Mg Tab) 50 mg PO ONETIME ONE Stop: 10/23/20 10:46 Last Admin: 10/23/20 11:14 Dose: 50 mg Documented by: Azathioprine (Azathioprine 50 Mg Tab) 100 mg PO BID [facility] Last Admin: 10/23/20 21:24 Dose: Not Given Documented by: Dexamethasone (Dexamethasone 10 Mg/Ml Sdv) 6 mg IVPUSH ONETIME STA Stop: 10/22/20 20:38 Last Admin: 10/22/20 21:19 Dose: 6 mg Documented by: Dexamethasone (Dexamethasone 10 Mg/Ml Sdv) 6 mg IVPUSH Q24H [facility] Stop: 10/31/20 21:01 Enoxaparin Sodium (Enoxaparin 40 Mg/0.4 Ml Syringe) 40 mg SUBCUT DAILY [facility] Enoxaparin Sodium (Enoxaparin 120 Mg/0.8 Ml Syringe) 110 mg SUBCUT Q12H [facility] Last Admin: 10/25/20 08:25 Dose: 110 mg Documented by: Remdesivir 200 mg/ Sodium (Chloride) 250 mls @ 250 mls/hr IV ONETIME ONE Stop: 10/22/20 20:38 Last Admin: 10/22/20 21:19 Dose: 250 mls/hr Documented by: Remdesivir 100 mg/ Sodium (Chloride) 100 mls @ 100 mls/hr IV Q24H [facility] Stop: 10/26/20 22:59 Last Admin: 10/26/20 21:19 Dose: 100 mls/hr Documented by: Sodium Chloride (Normal Saline) 100 mls @ 60 mls/hr IV ASDIRECTED [facility] Stop: 10/25/20 10:30 Last Admin: 10/25/20 10:49 Dose: 60 mls/hr Documented by: Iopamidol (Iopamidol 755 Mg/Ml 100 Ml Bottle) 100 ml IVPUSH ONETIME ONE Stop: 10/25/20 08:03 Last Admin: 10/25/20 10:49 Dose: 100 ml Documented by: Lisinopril (Lisinopril 20 Mg Tab) 20 mg PO DAILY [facility] Last Admin: 10/25/20 08:27 Dose: Not Given Documented by: Lorazepam (Lorazepam 1 Mg Tab) 1 mg PO ONETIME ONE Stop: 10/25/20 09:22 Last Admin: 10/25/20 09:37 Dose: 1 mg Documented by: Lorazepam (Lorazepam 2 Mg/Ml Sdv) 0.5 mg IVPUSH ONETIME PRN PRN Reason: SEE COMMENTS Stop: 10/25/20 18:00 Non-Formulary Medication (Glucos Sul 2kcl/Msm/Chond/C/Mn [Glucosamine Chondroitin Cap]) 2 each PO BEDTIME [facility] Potassium Chloride (Potassium Chloride 20 Meq Tab.Er) 40 meq PO ONETIME ONE Stop: 10/25/20 09:19 Last Admin: 10/25/20 09:37 Dose: 40 meq Documented by: Sodium Chloride (Sodium Chloride 0.9% 10 Ml Syringe) 10 ml FLUSH ONETIME ONE Stop: 10/25/20 08:03 Last Admin: 10/25/20 10:49 Dose: 10 ml Documented by: Sodium Phosphate (Phosphorus #1 250 Mg Tab) 250 mg PO DAILY [facility] Last Admin: 10/24/20 08:25 Dose: 250 mg Documented by: - Exam Physical Findings Comments:: General: Obese middle aged male. In no acute distress. Able to speak in full sentences. HEENT: NC, AT, PERRLA, EOMI Neck is short and supple CVS: S1S2 appreciated. RRR lungs: diminished bilaterally with no rales or wheezes pa: Obese, soft, non tender. bowel sounds present ext: no clubbing, cyanosis or edema neuro: no focal deficits. moves all extremities. sensation is intact. psch: stable mood and affect. - Patient Data Lab Results Last 24 hrs: Laboratory Results - last 24 hr 10/27/20 10/27/20 10/27/20 Range/Units 04:54 04:54 04:54 WBC 5.73 (4.23-9.07) K/mm3 RBC 4.20 L (4.63-6.08) M/mm3 Hgb 14.0 (13.7-17.5) gm/dl Hct 41.5 (40.1-51.0) % MCV 98.8 H (79.0-92.2) fl MCH 33.3 H (25.7-32.2) pg MCHC 33.7 (32.2-35.5) g/dl RDW Std Deviation 43.9 (35.1-43.9) fL Plt Count 117 L (163-337) K/mm3 MPV 10.5 (9.4-12.3) fl Neut % (Auto) 85.8 H (34.0-67.9) % Lymph % (Auto) 10.3 L (21.8-53.1) % [place] % (Auto) 3.0 L (5.3-12.2) % Eos % (Auto) 0.2 L (0.8-7.0) Baso % (Auto) 0.2 (0.1-1.2) % Neut # (Auto) 4.92 (1.78-5.38) K/mm3 Lymph # (Auto) 0.59 L (1.32-3.57) K/mm3 [place] # (Auto) 0.17 L (0.30-0.82) K/mm3 Eos # (Auto) 0.01 L (0.04-0.54) K/mm3 Baso # (Auto) 0.01 (0.01-0.08) K/mm3 Manual Slide Review Abnormal smear D-Dimer, Quantitative 5.83 H (0.19-0.50) mg/L Sodium 139 (136-145) mEq/L Potassium 3.9 (3.5-5.1) mEq/L Chloride 106 (98-107) mEq/L Carbon Dioxide 29 (21-32) mEq/L Anion Gap 7.9 (5-15) BUN 21 H (7-18) mg/dL Creatinine 0.8 (0.7-1.3) mg/dL Est Cr Clr Drug Dosing 112.36 mL/min Estimated GFR (MDRD) > 60 (>60) mL/min BUN/Creatinine Ratio 26.3 H (14-18) Glucose 112 H (70-99) mg/dL Calcium 7.8 L (8.5-10.1) mg/dL Phosphorus 2.8 (2.6-4.7) mg/dL Magnesium 2.1 (1.8-2.4) mg/dL Total Bilirubin 1.0 (0.2-1.0) mg/dL AST 24 (15-37) U/L ALT 39 (16-63) U/L Alkaline Phosphatase 54 (46-116) U/L C-Reactive Protein 3.6 H* (<1.0) mg/dL Total Protein 5.5 L (6.4-8.2) g/dl Albumin 2.2 L (3.4-5.0) g/dl Globulin 3.3 gm/dL Albumin/Globulin Ratio 0.7 L (1-2) Result Diagrams: 10/27/20 04:54 10/27/20 04:54 Sepsis Event Note - Evaluation Sepsis Screening Result: Possible Sepsis Risk - Focused Exam Vital Signs: Vital Signs Temp Pulse Resp BP Pulse Ox Pulse Ox 10/27/20 08:55 94 L 10/27/20 07:30 97.9 F 61 26 H 103/51 L 10/27/20 04:32 99.1 F 66 28 H 90/52 L 88 L - Problem List & Annotations (1) Acute respiratory failure due to COVID-19 SNOMED Code(s): 983995516 Code(s): U07.1 - COVID-19; J96.00 - ACUTE RESPIRATORY FAILURE, UNSP W HYPOXIA OR HYPERCAPNIA Status: Acute Current Visit: Yes (2) COVID-19 SNOMED Code(s): 776029668 Code(s): U07.1 - COVID-19 Status: Acute Current Visit: Yes (3) Hypertension SNOMED Code(s): 20536769 Code(s): I10 - ESSENTIAL (PRIMARY) HYPERTENSION Status: Acute Current Visit: Yes (4) Dermatomyositis SNOMED Code(s): 693476952 Code(s): M33.90 - DERMATOPOLYMYOSITIS, UNSP, ORGAN INVOLVEMENT UNSPECIFIED Status: Acute Current Visit: Yes (5) Immunocompromised patient SNOMED Code(s): 413060474 Code(s): D84.9 - IMMUNODEFICIENCY, UNSPECIFIED Status: Acute Current Visi t: Yes - Problem List Review Problem List Initiated/Reviewed/Updated: Yes - Plan Plan:: 60-year-old with remote history of bladder cancer presents to the emergency department after a little over 1 week of symptoms consistent with COVID-19. Acute respiratory failure secondary to COVID-19 -Diagnosed with COVID-19 on 10/14/2020 -WBC 6.4, D-dimer 26.26, albumin 2.5, -Improved - high flow nasal cannula at 35-40 L/min and FiO2 of 45%. This is down from 50 L and 45% yesterday morning.. -Remdesivir and dexamethasone. -I-S, Betina, respiratory therapy consult, titrate FiO2 to keep SPO2 up to 92% -Blood cultures pending -Baricitinib not started because he is already on 2 immunosuppressants, Imuran and dexamethasone, and I felt the risk of immunosuppression was greater than possible benefit at this time. Pulmonary embolism CTA of chest: 1. Findings compatible with bilateral pulmonary emboli. 2. Diffuse findings of Covid pneumonia -Unfortunately patient was initially not put on anticoagulation secondary to thrombocytopenia. He was started on Lovenox as soon as platelets increased above 100,000, but apparently that was not soon enough. -Lovenox at 1 mg/kg twice daily. -Appears to be essentially asymptomatic. Hypertension Blood pressures a little low today. Blood pressure ranges from low 90s systolic to 116 systolic and diastolic of 47-63 -Hold his lisinopril Dermatomyositis -On Imuran Hyponatremia Resolved Thrombocytopenia Platelets 132 VTE treated with Lovenox CODE STATUS full code
[2020-10-27] MEDS: Albuterol/Ipratropium 3.0-0.5 MG/3 ML Neb Soln NEB PRN (14:55)
[2020-10-27] MEDS: Fish Oil/Omega-3 Fatty Acids 1 Gm Cap PO SCH (20:12)
[2020-10-27] MEDS: Aluminum Hydroxide/Magnesium Hydroxide/Simethicone Susp 30 ML Cup PO PRN (20:28)
[2020-10-28] MEDS: Albuterol 6.7 GM Inhaler INH PRN (08:14)
[2020-10-28] MEDS: Zinc Sulfate 220 MG Cap PO SCH (08:26)
[2020-10-28] MEDS: guaiFENesin 600 MG Tab.ER PO SCH ×3 (08:26→20:21)
[2020-10-28] MEDS: Dexamethasone 4 MG Tab PO SCH (08:26)
[2020-10-28] MEDS: Famotidine 20 MG Tab PO SCH ×2 (08:26→20:22)
[2020-10-28] MEDS: Benzonatate 100 MG Cap PO SCH ×3 (08:26→20:22)
[2020-10-28] MEDS: Enoxaparin 120 MG/0.8 ML Syringe SUBCUT SCH ×2 (08:27→20:22)
--- NOTE | 2020-10-28 16:06 | PCM.PN ---
- General Info Date of Service: 10/28/20 Admission Dx/Problem (Free Text): COVID-19 pneumonia - Review of Systems Systems Review Comment:: Pt is making some slow improvements. His respiratory status is a little better than yesterday. he is down ot 35 L oxygen from 40 L yesterday. He feels more energetic today too. He has been laying on is side and trying to do some proning. - Patient Data Vitals - Most Recent: Last Vital Signs Temp 97.3 F 10/28/20 15:29 Pulse 59 L 10/28/20 15:29 Resp 20 10/28/20 15:29 BP 94/53 L 10/28/20 15:29 Pulse Ox 94 L 10/28/20 15:29 Weight - Most Recent: 241 lb 11.2 oz I&O - Last 24 Hours: Intake & Output 10/28/20 10/28/20 10/28/20 06:59 14:59 22:59 Intake Total 500 240 Output Total 900 Balance -400 240 Loki Results Last 24 Hours: Microbiology 10/22/20 21:10 Blood Culture - Final Blood - Venous - Lab Draw 10/22/20 21:05 Blood Culture - Final Blood - Venous Med Orders - Current: Current Medications Acetaminophen (Acetaminophen 325 Mg Tab) 650 mg PO Q4H PRN PRN Reason: Pain (Mild 1-3)/fever Last Admin: 10/25/20 05:49 Dose: 650 mg Documented by: Acetaminophen/Codeine Phosphate (Acetaminophen/Codeine 300-30 Mg Tab) 2 tab PO Q4H PRN PRN Reason: Cough Last Admin: 10/27/20 07:32 Dose: 2 tab Documented by: Al Hydroxide/Mg Hydroxide (Aluminum Hydroxide/Magnesium Hydroxide/Simethicone Susp 30 Ml Cup) 30 ml PO Q4H PRN PRN Reason: Heartburn Last Admin: 10/27/20 20:28 Dose: 30 ml Documented by: Albuterol (Albuterol 6.7 Gm Inhaler) 0 gm INH Q2H PRN PRN Reason: Shortness of Breath Last Admin: 10/28/20 08:14 Dose: 2 puff Documented by: Albuterol/Ipratropium (Albuterol/Ipratropium 3.0-0.5 Mg/3 Ml Neb Soln) 3 ml NEB Q4H PRN PRN Reason: Shortness Of Breath/wheezing Last Admin: 10/27/20 14:55 Dose: 3 ml Documented by: Azathioprine (Azathioprine 50 Mg Tab) 100 mg PO DAILY [facility] Last Admin: 10/28/20 08:28 Dose: 100 mg Documented by: Benzonatate (Benzonatate 100 Mg Cap) 200 mg PO TID [facility] Last Admin: 10/28/20 15:38 Dose: 200 mg Documented by: Dexamethasone (Dexamethasone 4 Mg Tab) 6 mg PO DAILY [facility] Stop: 10/31/20 09:01 Last Admin: 10/28/20 08:26 Dose: 6 mg Documented by: Enoxaparin Sodium (Enoxaparin 120 Mg/0.8 Ml Syringe) 110 mg SUBCUT Q12H [facility] Last Admin: 10/28/20 08:27 Dose: 110 mg Documented by: Famotidine (Famotidine 20 Mg Tab) 20 mg PO BID [facility] Last Admin: 10/28/20 08:26 Dose: 20 mg Documented by: Fish Oil (Fish Oil/[place]-3 Fatty Acids 1 Gm Cap) 1 gm PO BEDTIME [facility] Last Admin: 10/27/20 20:12 Dose: 1 gm Documented by: Guaifenesin (Guaifenesin 600 Mg Tab.Er) 600 mg PO TID [facility] Last Admin: 10/28/20 15:38 Dose: 600 mg Documented by: Melatonin (Melatonin 3 Mg Tab) 6 mg PO BEDTIME PRN PRN Reason: Insomnia Ondansetron HCl (Ondansetron 4 Mg/2 Ml Sdv) 4 mg IV Q6H PRN PRN Reason: Nausea/Vomiting Last Admin: 10/25/20 10:22 Dose: 4 mg Documented by: Zinc Sulfate (Zinc Sulfate 220 Mg Cap) 220 mg PO DAILY [facility] Last Admin: 10/28/20 08:26 Dose: 220 mg Documented by: Discontinued Medications Albuterol (Albuterol 6.7 Gm Inhaler) 2 gm INH Q2H PRN PRN Reason: Shortness of Breath Azathioprine (Azathioprine 50 Mg Tab) 50 mg PO BID [facility] Last Admin: 10/23/20 10:24 Dose: 50 mg Documented by: Azathioprine (Azathioprine 50 Mg Tab) 50 mg PO ONETIME ONE Stop: 10/23/20 10:46 Last Admin: 10/23/20 11:14 Dose: 50 mg Documented by: Azathioprine (Azathioprine 50 Mg Tab) 100 mg PO BID [facility] Last Admin: 10/23/20 21:24 Dose: Not Given Documented by: Dexamethasone (Dexamethasone 10 Mg/Ml Sdv) 6 mg IVPUSH ONETIME STA Stop: 10/22/20 20:38 Last Admin: 10/22/20 21:19 Dose: 6 mg Documented by: Dexamethasone (Dexamethasone 10 Mg/Ml Sdv) 6 mg IVPUSH Q24H [facility] Stop: 10/31/20 21:01 Enoxaparin Sodium (Enoxaparin 40 Mg/0.4 Ml Syringe) 40 mg SUBCUT DAILY [facility] Enoxaparin Sodium (Enoxaparin 120 Mg/0.8 Ml Syringe) 110 mg SUBCUT Q12H [facility] Last Admin: 10/25/20 08:25 Dose: 110 mg Documented by: Remdesivir 200 mg/ Sodium (Chloride) 250 mls @ 250 mls/hr IV ONETIME ONE Stop: 10/22/20 20:38 Last Admin: 10/22/20 21:19 Dose: 250 mls/hr Documented by: Remdesivir 100 mg/ Sodium (Chloride) 100 mls @ 100 mls/hr IV Q24H [facility] Stop: 10/26/20 22:59 Last Admin: 10/26/20 21:19 Dose: 100 mls/hr Documented by: Sodium Chloride (Normal Saline) 100 mls @ 60 mls/hr IV ASDIRECTED [facility] Stop: 10/25/20 10:30 Last Admin: 10/25/20 10:49 Dose: 60 mls/hr Documented by: Iopamidol (Iopamidol 755 Mg/Ml 100 Ml Bottle) 100 ml IVPUSH ONETIME ONE Stop: 10/25/20 08:03 Last Admin: 10/25/20 10:49 Dose: 100 ml Documented by: Lisinopril (Lisinopril 20 Mg Tab) 20 mg PO DAILY [facility] Last Admin: 10/25/20 08:27 Dose: Not Given Documented by: Lorazepam (Lorazepam 1 Mg Tab) 1 mg PO ONETIME ONE Stop: 10/25/20 09:22 Last Admin: 10/25/20 09:37 Dose: 1 mg Documented by: Lorazepam (Lorazepam 2 Mg/Ml Sdv) 0.5 mg IVPUSH ONETIME PRN PRN Reason: SEE COMMENTS Stop: 10/25/20 18:00 Non-Formulary Medication (Glucos Sul 2kcl/Msm/Chond/C/Mn [Glucosamine Pedro droitin Cap]) 2 each PO BEDTIME [facility] Potassium Chloride (Potassium Chloride 20 Meq Tab.Er) 40 meq PO ONETIME ONE Stop: 10/25/20 09:19 Last Admin: 10/25/20 09:37 Dose: 40 meq Documented by: Sodium Chloride (Sodium Chloride 0.9% 10 Ml Syringe) 10 ml FLUSH ONETIME ONE Stop: 10/25/20 08:03 Last Admin: 10/25/20 10:49 Dose: 10 ml Documented by: Sodium Phosphate (Phosphorus #1 250 Mg Tab) 250 mg PO DAILY [facility] Last Admin: 10/24/20 08:25 Dose: 250 mg Documented by: - Exam Physical Findings Comments:: General: Obese middle aged male. In no distress CVS: S1S2 appreciated. RRR lungs: clear with no wheezes pa: soft, obese, non tender ext: no clubbing, cyanosis or edema. neuro: no focal deficits - Patient Data Result Diagrams: 10/27/20 04:54 10/27/20 04:54 Loki Results Last 24 hrs: Microbiology 10/22/20 21:10 Blood Culture - Final Blood - Venous - Lab Draw 10/22/20 21:05 Blood Culture - Final Blood - Venous Sepsis Event Note - Evaluation Sepsis Screening Result: No Definite Risk - Focused Exam Vital Signs: Vital Signs Temp Pulse Resp BP Pulse Ox Pulse Ox 10/28/20 15:29 97.3 F 59 L 20 94/53 L 94 L 10/28/20 11:21 97.5 F 64 20 103/52 L 95 10/28/20 10:05 90 L 10/28/20 08:14 87 L 10/28/20 07:59 97.9 F 54 L 24 H 102/53 L 83 L 10/28/20 05:00 99.0 F 56 L 26 H 111/55 L 90 L - Problem List & Annotations (1) Acute respiratory failure due to COVID-19 SNOMED Code(s): 584656681 Code(s): U07.1 - COVID-19; J96.00 - ACUTE RESPIRATORY FAILURE, UNSP W HYPOXIA OR HYPERCAPNIA Status: Acute Current Visit: Yes (2) COVID-19 SNOMED Code(s): 665972819 Code(s): U07.1 - COVID-19 Status: Acute Current Visit: Yes (3) Hypertension SNOMED Code(s): 74041444 Code(s): I10 - ESSENTIAL (PRIMARY) HYPERTENSION Status: Acute Current Visit: Yes (4) Dermatomyositis SNOMED Code(s): 971844546 Code(s): M33.90 - DERMATOPOLYMYOSITIS, UNSP, ORGAN INVOLVEMENT UNSPECIFIED Status: Acute Current Visit: Yes (5) Immunocompromised patient SNOMED Code(s): 631889303 Code(s): D84.9 - IMMUNODEFICIENCY, UNSPECIFIED Status: Acute Current Visit: Yes - Problem List Review Problem List Initiated/Reviewed/Updated: Yes - Plan Plan:: 60-year-old with remote history of bladder cancer presents to the emergency department after a little over 1 week of symptoms consistent with COVID-19. Acute respiratory failure secondary to COVID-19 -Diagnosed with COVID-19 on 10/14/2020 -WBC 6.4, D-dimer 26.26, albumin 2.5, -Improved - high flow nasal cannula at 35-40 L/min and FiO2 of 45%. This is down from 50 L and 45% yesterday morning. Continue to encourage proning and use of the incentive spirometer. -Remdesivir and dexamethasone. -I-SBetina, respiratory therapy consult, titrate FiO2 to keep SPO2 up to 92% -Blood cultures pending -Baricitinib not started because he is already on 2 immunosuppressants, Imuran and dexamethasone, and I felt the risk of immunosuppression was greater than possible benefit at this time. Pulmonary embolism CTA of chest: 1. Findings compatible with bilateral pulmonary emboli. 2. Diffuse findings of Covid pneumonia -Unfortunately patient was initially not put on anticoagulation secondary to thrombocytopenia. He was started on Lovenox as soon as platelets increased above 100,000, but apparently that was not soon enough. -Lovenox at 1 mg/kg twice daily. -Appears to be essentially asymptomatic. Hypertension Blood pressures a little low today. Blood pressure ranges from low 90s systolic to 116 systolic and diastolic of 47-63 -Hold his lisinopril Dermatomyositis -On Imuran Hyponatremia Resolved Thrombocytopenia Platelets 132 VTE treated with Lovenox CODE STATUS full code
[2020-10-28] MEDS: Fish Oil/Omega-3 Fatty Acids 1 Gm Cap PO SCH (20:22)
[2020-10-28] MEDS: Albuterol/Ipratropium 3.0-0.5 MG/3 ML Neb Soln NEB PRN (20:57)
[2020-10-29] MEDS: Albuterol 6.7 GM Inhaler INH PRN ×4 (05:33→22:00)
[2020-10-29] MEDS: Dexamethasone 4 MG Tab PO SCH (08:21)
[2020-10-29] MEDS: guaiFENesin 600 MG Tab.ER PO SCH ×3 (08:22→20:13)
[2020-10-29] MEDS: Zinc Sulfate 220 MG Cap PO SCH (08:22)
[2020-10-29] MEDS: Enoxaparin 120 MG/0.8 ML Syringe SUBCUT SCH ×2 (08:23→20:12)
[2020-10-29] MEDS: Famotidine 20 MG Tab PO SCH ×2 (08:23→20:13)
[2020-10-29] MEDS: Benzonatate 100 MG Cap PO SCH ×3 (08:23→20:13)
--- NOTE | 2020-10-29 13:05 | PCM.PN ---
- General Info Date of Service: 10/29/20 Admission Dx/Problem (Free Text): COVID-19 pneumonia Subjective Update: He is able to have productive sputum without difficulty. He feels like things are breaking up. He continues on high flow nasal cannula at 40 L and 55 to 60% FiO2. Functional Status: Reports: Pain Controlled - Review of Systems General: Reports: No Symptoms HEENT: Reports: No Symptoms Pulmonary: Reports: Shortness of Breath, Cough Cardiovascular: Reports: No Symptoms Gastrointestinal: Reports: No Symptoms Musculoskeletal: Reports: No Symptoms Psychiatric: Reports: No Symptoms - Patient Data Vitals - Most Recent: Last Vital Signs Temp 98.2 F 10/29/20 11:11 Pulse 62 10/29/20 11:11 Resp 22 H 10/29/20 11:11 BP 101/66 10/29/20 11:11 Pulse Ox 90 L 10/29/20 11:12 Weight - Most Recent: 239 lb 11.2 oz I&O - Last 24 Hours: Intake & Output 10/28/20 10/29/20 10/29/20 22:59 06:59 14:59 Intake Total 640 800 Output Total 650 600 Balance -10 200 Lab Results Last 24 Hours: Laboratory Results - last 24 hr 10/29/20 10/29/20 Range/Units 07:55 07:55 WBC 7.47 (4.23-9.07) K/mm3 RBC 4.60 L (4.63-6.08) M/mm3 Hgb 15.2 (13.7-17.5) gm/dl Hct 45.1 (40.1-51.0) % MCV 98.0 H (79.0-92.2) fl MCH 33.0 H (25.7-32.2) pg MCHC 33.7 (32.2-35.5) g/dl RDW Std Deviation 43.3 (35.1-43.9) fL Plt Count 165 (163-337) K/mm3 MPV 10.5 (9.4-12.3) fl Neut % (Auto) 84.9 H (34.0-67.9) % Lymph % (Auto) 9.5 L (21.8-53.1) % [place] % (Auto) 3.6 L (5.3-12.2) % Eos % (Auto) 0.8 (0.8-7.0) Baso % (Auto) 0.1 (0.1-1.2) % Neut # (Auto) 6.34 H (1.78-5.38) K/mm3 Lymph # (Auto) 0.71 L (1.32-3.57) K/mm3 [place] # (Auto) 0.27 L (0.30-0.82) K/mm3 Eos # (Auto) 0.06 (0.04-0.54) K/mm3 Baso # (Auto) 0.01 (0.01-0.08) K/mm3 Manual Slide Review Normal smear Sodium 137 (136-145) mEq/L Potassium 4.1 (3.5-5.1) mEq/L Chloride 103 (98-107) mEq/L Carbon Dioxide 25 (21-32) mEq/L Anion Gap 13.1 (5-15) BUN 25 H (7-18) mg/dL Creatinine 0.8 (0.7-1.3) mg/dL Est Cr Clr Drug Dosing 112.36 mL/min Estimated GFR (MDRD) > 60 (>60) mL/min BUN/Creatinine Ratio 31.3 H (14-18) Glucose 129 H (70-99) mg/dL Calcium 8.1 L (8.5-10.1) mg/dL Phosphorus 3.6 (2.6-4.7) mg/dL Magnesium 2.3 (1.8-2.4) mg/dL Total Bilirubin 1.1 H (0.2-1.0) mg/dL AST 14 L (15-37) U/L ALT 33 (16-63) U/L Alkaline Phosphatase 56 (46-116) U/L C-Reactive Protein 2.2 H* (<1.0) mg/dL Total Protein 6.0 L (6.4-8.2) g/dl Albumin 2.4 L (3.4-5.0) g/dl Globulin 3.6 gm/dL Albumin/Globulin Ratio 0.7 L (1-2) Loki Results Last 24 Hours: Microbiology 10/22/20 21:10 Blood Culture - Final Blood - Venous - Lab Draw 10/22/20 21:05 Blood Culture - Final Blood - Venous Med Orders - Current: Current Medications Acetaminophen (Acetaminophen 325 Mg Tab) 650 mg PO Q4H PRN PRN Reason: Pain (Mild 1-3)/fever Last Admin: 10/25/20 05:49 Dose: 650 mg Documented by: Acetaminophen/Codeine Phosphate (Acetaminophen/Codeine 300-30 Mg Tab) 2 tab PO Q4H PRN PRN Reason: Cough Last Admin: 10/27/20 07:32 Dose: 2 tab Documented by: Al Hydroxide/Mg Hydroxide (Aluminum Hydroxide/Magnesium Hydroxide/Simethicone Susp 30 Ml Cup) 30 ml PO Q4H PRN PRN Reason: Heartburn Last Admin: 10/27/20 20:28 Dose: 30 ml Documented by: Albuterol (Albuterol 6.7 Gm Inhaler) 0 gm INH Q2H PRN PRN Reason: Shortness of Breath Last Admin: 10/29/20 09:12 Dose: 2 puff Documented by: Albuterol/Ipratropium (Albuterol/Ipratropium 3.0-0.5 Mg/3 Ml Neb Soln) 3 ml NEB Q4H PRN PRN Reason: Shortness Of Breath/wheezing Last Admin: 10/28/20 20:57 Dose: 3 ml Documented by: Azathioprine (Azathioprine 50 Mg Tab) 100 mg PO DAILY [facility] Last Admin: 10/29/20 08:26 Dose: 100 mg Documented by: Benzonatate (Benzonatate 100 Mg Cap) 200 mg PO TID [facility] Last Admin: 10/29/20 08:23 Dose: 200 mg Documented by: Dexamethasone (Dexamethasone 4 Mg Tab) 6 mg PO DAILY [facility] Stop: 10/31/20 09:01 Last Admin: 10/29/20 08:21 Dose: 6 mg Documented by: Enoxaparin Sodium (Enoxaparin 120 Mg/0.8 Ml Syringe) 110 mg SUBCUT Q12H [facility] Last Admin: 10/29/20 08:23 Dose: 110 mg Documented by: Famotidine (Famotidine 20 Mg Tab) 20 mg PO BID [facility] Last Admin: 10/29/20 08:23 Dose: 20 mg Documented by: Fish Oil (Fish Oil/[place]-3 Fatty Acids 1 Gm Cap) 1 gm PO BEDTIME [facility] Last Admin: 10/28/20 20:22 Dose: 1 gm Documented by: Guaifenesin (Guaifenesin 600 Mg Tab.Er) 600 mg PO TID [facility] Last Admin: 10/29/20 08:22 Dose: 600 mg Documented by: Melatonin (Melatonin 3 Mg Tab) 6 mg PO BEDTIME PRN PRN Reason: Insomnia Ondansetron HCl (Ondansetron 4 Mg/2 Ml Sdv) 4 mg IV Q6H PRN PRN Reason: Nausea/Vomiting Last Admin: 10/25/20 10:22 Dose: 4 mg Documented by: Zinc Sulfate (Zinc Sulfate 220 Mg Cap) 220 mg PO DAILY [facility] Last Admin: 10/29/20 08:22 Dose: 220 mg Documented by: Discontinued Medications Albuterol (Albuterol 6.7 Gm Inhaler) 2 gm INH Q2H PRN PRN Reason: Shortness of Breath Azathioprine (Azathioprine 50 Mg Tab) 50 mg PO BID [facility] Last Admin: 10/23/20 10:24 Dose: 50 mg Documented by: Azathioprine (Azathioprine 50 Mg Tab) 50 mg PO ONETIME ONE Stop: 10/23/20 10:46 Last Admin: 10/23/20 11:14 Dose: 50 mg Documented by: Azathioprine (Azathioprine 50 Mg Tab) 100 mg PO BID [facility] Last Admin: 10/23/20 21:24 Dose: Not Given Documented by: Dexamethasone (Dexamethasone 10 Mg/Ml Sdv) 6 mg IVPUSH ONETIME STA Stop: 10/22/20 20:38 Last Admin: 10/22/20 21:19 Dose: 6 mg Documented by: Dexamethasone (Dexamethasone 10 Mg/Ml Sdv) 6 mg IVPUSH Q24H [facility] Stop: 10/31/20 21:01 Enoxaparin Sodium (Enoxaparin 40 Mg/0.4 Ml Syringe) 40 mg SUBCUT DAILY [facility] Enoxaparin Sodium (Enoxaparin 120 Mg/0.8 Ml Syringe) 110 mg SUBCUT Q12H [facility] Last Admin: 10/25/20 08:25 Dose: 110 mg Documented by: Remdesivir 200 mg/ Sodium (Chloride) 250 mls @ 250 mls/hr IV ONETIME ONE Stop: 10/22/20 20:38 Last Admin: 10/22/20 21:19 Dose: 250 mls/hr Documented by: Remdesivir 100 mg/ Sodium (Chloride) 100 mls @ 100 mls/hr IV Q24H [facility] Stop: 10/26/20 22:59 Last Admin: 10/26/20 21:19 Dose: 100 mls/hr Documented by: Sodium Chloride (Normal Saline) 100 mls @ 60 mls/hr IV ASDIRECTED [facility] Stop: 10/25/20 10:30 Last Admin: 10/25/20 10:49 Dose: 60 mls/hr Documented by: Iopamidol (Iopamidol 755 Mg/Ml 100 Ml Bottle) 100 ml IVPUSH ONETIME ONE Stop: 10/25/20 08:03 Last Admin: 10/25/20 10:49 Dose: 100 ml Documented by: Lisinopril (Lisinopril 20 Mg Tab) 20 mg PO DAILY [facility] Last Admin: 10/25/20 08:27 Dose: Not Given Documented by: Lorazepam (Lorazepam 1 Mg Tab) 1 mg PO ONETIME ONE Stop: 10/25/20 09:22 Last Admin: 10/25/20 09:37 Dose: 1 mg Documented by: Lorazepam (Lorazepam 2 Mg/Ml Sdv) 0.5 mg IVPUSH ONETIME PRN PRN Reason: SEE COMMENTS Stop: 10/25/20 18:00 Non-Formulary Medication (Glucos Sul 2kcl/Msm/Chond/C/Mn [Glucosamine Chondroitin Cap]) 2 each PO BEDTIME [facility] Potassium Chloride (Potassium Chloride 20 Meq Tab.Er) 40 meq PO ONETIME ONE Stop: 10/25/20 09:19 Last Admin: 10/25/20 09:37 Dose: 40 meq Documented by: Sodium Chloride (Sodium Chloride 0.9% 10 Ml Syringe) 10 ml FLUSH ONETIME ONE Stop: 10/25/20 08:03 Last Admin: 10/25/20 10:49 Dose: 10 ml Documented by: Sodium Phosphate (Phosphorus #1 250 Mg Tab) 250 mg PO DAILY [facility] Last Admin: 10/24/20 08:25 Dose: 250 mg Documented by: - Exam Quality Assessment: Supplemental Oxygen (High flow nasal cannula) General: Alert, Oriented, Other (Lying on left side) HEENT: Pupils Equal, Mucous Membr. Moist/[place] Neck: Supple Lungs: Normal Respiratory Effort, Crackles (Left lower lobe) Cardiovascular: Regular Rate, Regular Rhythm GI/Abdominal Exam: Normal Bowel Sounds, Soft, Non-Tender, No Organomegaly, No Distention Extremities: Normal Inspection, Normal Range of Motion, Non-Tender, No Pedal Edema, Normal Capillary Refill Skin: Warm, Dry, Intact Psy/Mental Status: Alert, Normal Affect, Normal Mood - Patient Data Lab Results Last 24 hrs: Laboratory Results - last 24 hr 10/29/20 10/29/20 Range/Units 07:55 07:55 WBC 7.47 (4.23-9.07) K/mm3 RBC 4.60 L (4.63-6.08) M/mm3 Hgb 15.2 (13.7-17.5) gm/dl Hct 45.1 (40.1-51.0) % MCV 98.0 H (79.0-92.2) fl MCH 33.0 H (25.7-32.2) pg MCHC 33.7 (32.2-35.5) g/dl RDW Std Deviation 43.3 (35.1-43.9) fL Plt Count 165 (163-337) K/mm3 MPV 10.5 (9.4-12.3) fl Neut % (Auto) 84.9 H (34.0-67.9) % Lymph % (Auto) 9.5 L (21.8-53.1) % [place] % (Auto) 3.6 L (5.3-12.2) % Eos % (Auto) 0.8 (0.8-7.0) Baso % (Auto) 0.1 (0.1-1.2) % Neut # (Auto) 6.34 H (1.78-5.38) K/mm3 Lymph # (Auto) 0.71 L (1.32-3.57) K/mm3 [place] # (Auto) 0.27 L (0.30-0.82) K/mm3 Eos # (Auto) 0.06 (0.04-0.54) K/mm3 Baso # (Auto) 0.01 (0.01-0.08) K/mm3 Manual Slide Review Normal smear Sodium 137 (136-145) mEq/L Potassium 4.1 (3.5-5.1) mEq/L Chloride 103 (98-107) mEq/L Carbon Dioxide 25 (21-32) mEq/L Anion Gap 13.1 (5-15) BUN 25 H (7-18) mg/dL Creatinine 0.8 (0.7-1.3) mg/dL Est Cr Clr Drug Dosing 112.36 mL/min Estimated GFR (MDRD) > 60 (>60) mL/min BUN/Creatinine Ratio 31.3 H (14-18) Glucose 129 H (70-99) mg/dL Calcium 8.1 L (8.5-10.1) mg/dL Phosphorus 3.6 (2.6-4.7) mg/dL Magnesium 2.3 (1.8-2.4) mg/dL Total Bilirubin 1.1 H (0.2-1.0) mg/dL AST 14 L (15-37) U/L ALT 33 (16-63) U/L Alkaline Phosphatase 56 (46-116) U/L C-Reactive Protein 2.2 H* (<1.0) mg/dL Total Protein 6.0 L (6.4-8.2) g/dl Albumin 2.4 L (3.4-5.0) g/dl Globulin 3.6 gm/dL Albumin/Globulin Ratio 0.7 L (1-2) Result Diagrams: 10/29/20 07:55 10/29/20 07:55 Loki Results Last 24 hrs: Microbiology 10/22/20 21:10 Blood Culture - Final Blood - Venous - Lab Draw 10/22/20 21:05 Blood Culture - Final Blood - Venous Sepsis Event Note - Evaluation Sepsis Screening Result: No Definite Risk - Focused Exam Vital Signs: Vital Signs Temp Pulse Resp BP Pulse Ox Pulse Ox 10/29/20 11:12 90 L 10/29/20 11:11 98.2 F 62 22 H 101/66 84 L 10/29/20 09:12 90 L 10/29/20 07:35 98.2 F 59 L 18 104/59 L 89 L 10/29/20 06:34 98.2 F 62 18 95/48 L 83 L 10/29/20 05:33 97 - Problem List & Annotations (1) Acute respiratory failure due to COVID-19 SNOMED Code(s): 935198151 Code(s): U07.1 - COVID-19; J96.00 - ACUTE RESPIRATORY FAILURE, UNSP W HYPOXIA OR HYPERCAPNIA Status: Acute Current Visit: Yes (2) Bladder cancer SNOMED Code(s): 385839593 Code(s): C67.9 - MALIGNANT NEOPLASM OF BLADDER, UNSPECIFIED Status: Resolved Current Visit: Yes (3) Hypertension SNOMED Code(s): 80172453 Code(s): I10 - ESSENTIAL (PRIMARY) HYPERTENSION Status: Acute Current Visit: Yes - Problem List Review Problem List Initiated/Reviewed/Updated: Yes - Plan Plan:: 60-year-old with remote history of bladder cancer presents to the emergency department after a little over 1 week of symptoms consistent with COVID-19. Acute respiratory failure secondary to COVID-19 -High flow nasal cannula at 40 L/min and 55 to 65% FiO2 -Diagnosed with COVID-19 on 10/14/2020 -Continue to encourage proning and use of the incentive spirometer. -Completed remdesivir -Continue dexamethasone -I-S, Acapella, respiratory therapy consult, titrate FiO2 to keep SPO2 up to 92% -Blood cultures pending -Baricitinib not started because he is already on 2 immunosuppressants, Imuran a nd dexamethasone, and I felt the risk of immunosuppression was greater than possible benefit at this time. Pulmonary embolism CTA of chest: 1. Findings compatible with bilateral pulmonary emboli. 2. Diffuse findings of Covid pneumonia -Unfortunately patient was initially not put on anticoagulation secondary to thrombocytopenia. He was started on Lovenox as soon as platelets increased above 100,000, but apparently that was not soon enough. -Lovenox at 1 mg/kg twice daily. -Appears to be essentially asymptomatic. Hypertension Blood pressures continues to be low. Blood pressure ranges from low 90s systolic to 110s systolic -Hold his lisinopril Dermatomyositis -On Imuran Hyponatremia Resolved Thrombocytopenia -resolved VTE treated with Lovenox CODE STATUS full code
[2020-10-29] MEDS: Acetaminophen 325 MG Tab PO PRN (15:57)
[2020-10-29] MEDS: Fish Oil/Omega-3 Fatty Acids 1 Gm Cap PO SCH (20:13)
[2020-10-29] MEDS: Aluminum Hydroxide/Magnesium Hydroxide/Simethicone Susp 30 ML Cup PO PRN (20:14)
[2020-10-30] MEDS: Albuterol 6.7 GM Inhaler INH PRN (05:36)
--- NOTE | 2020-10-30 07:09 | PCM.PN ---
- General Info Date of Service: 10/30/20 Admission Dx/Problem (Free Text): COVID-19 pneumonia Subjective Update: Patient states he continues to improve. He did have a long night laying on his belly, but he has had significant improvement in symptoms. He continues on 40 L via high flow nasal cannula. Functional Status: Reports: Pain Controlled - Review of Systems General: Reports: Fatigue HEENT: Reports: No Symptoms Pulmonary: Reports: Shortness of Breath, Cough Cardiovascular: Reports: No Symptoms Gastrointestinal: Reports: No Symptoms Musculoskeletal: Reports: No Symptoms Neurological: Reports: No Symptoms - Patient Data Vitals - Most Recent: Last Vital Signs Temp 97.3 F 10/30/20 04:30 Pulse 52 L 10/30/20 04:30 Resp 16 10/30/20 04:30 BP 100/57 L 10/30/20 04:30 Pulse Ox 88 L 10/30/20 05:36 Weight - Most Recent: 237 lb 8 oz I&O - Last 24 Hours: Intake & Output 10/29/20 10/30/20 10/30/20 22:59 06:59 14:59 Intake Total 1040 800 Output Total 1175 850 Balance -135 -50 Lab Results Last 24 Hours: Laboratory Results - last 24 hr 10/29/20 10/29/20 Range/Units 07:55 07:55 WBC 7.47 (4.23-9.07) K/mm3 RBC 4.60 L (4.63-6.08) M/mm3 Hgb 15.2 (13.7-17.5) gm/dl Hct 45.1 (40.1-51.0) % MCV 98.0 H (79.0-92.2) fl MCH 33.0 H (25.7-32.2) pg MCHC 33.7 (32.2-35.5) g/dl RDW Std Deviation 43.3 (35.1-43.9) fL Plt Count 165 (163-337) K/mm3 MPV 10.5 (9.4-12.3) fl Neut % (Auto) 84.9 H (34.0-67.9) % Lymph % (Auto) 9.5 L (21.8-53.1) % [place] % (Auto) 3.6 L (5.3-12.2) % Eos % (Auto) 0.8 (0.8-7.0) Baso % (Auto) 0.1 (0.1-1.2) % Neut # (Auto) 6.34 H (1.78-5.38) K/mm3 Lymph # (Auto) 0.71 L (1.32-3.57) K/mm3 [place] # (Auto) 0.27 L (0.30-0.82) K/mm3 Eos # (Auto) 0.06 (0.04-0.54) K/mm3 Baso # (Auto) 0.01 (0.01-0.08) K/mm3 Manual Slide Review Normal smear Sodium 137 (136-145) mEq/L Potassium 4.1 (3.5-5.1) mEq/L Chloride 103 (98-107) mEq/L Carbon Dioxide 25 (21-32) mEq/L Anion Gap 13.1 (5-15) BUN 25 H (7-18) mg/dL Creatinine 0.8 (0.7-1.3) mg/dL Est Cr Clr Drug Dosing 112.36 mL/min Estimated GFR (MDRD) > 60 (>60) mL/min BUN/Creatinine Ratio 31.3 H (14-18) Glucose 129 H (70-99) mg/dL Calcium 8.1 L (8.5-10.1) mg/dL Phosphorus 3.6 (2.6-4.7) mg/dL Magnesium 2.3 (1.8-2.4) mg/dL Total Bilirubin 1.1 H (0.2-1.0) mg/dL AST 14 L (15-37) U/L ALT 33 (16-63) U/L Alkaline Phosphatase 56 (46-116) U/L C-Reactive Protein 2.2 H* (<1.0) mg/dL Total Protein 6.0 L (6.4-8.2) g/dl Albumin 2.4 L (3.4-5.0) g/dl Globulin 3.6 gm/dL Albumin/Globulin Ratio 0.7 L (1-2) Med Orders - Current: Current Medications Acetaminophen (Acetaminophen 325 Mg Tab) 650 mg PO Q4H PRN PRN Reason: Pain (Mild 1-3)/fever Last Admin: 10/29/20 15:57 Dose: 650 mg Documented by: Acetaminophen/Codeine Phosphate (Acetaminophen/Codeine 300-30 Mg Tab) 2 tab PO Q4H PRN PRN Reason: Cough Last Admin: 10/27/20 07:32 Dose: 2 tab Documented by: Al Hydroxide/Mg Hydroxide (Aluminum Hydroxide/Magnesium Hydroxide/Simethicone Susp 30 Ml Cup) 30 ml PO Q4H PRN PRN Reason: Heartburn Last Admin: 10/29/20 20:14 Dose: 30 ml Documented by: Albuterol (Albuterol 6.7 Gm Inhaler) 0 gm INH Q2H PRN PRN Reason: Shortness of Breath Last Admin: 10/30/20 05:36 Dose: 2 puff Documented by: Albuterol/Ipratropium (Albuterol/Ipratropium 3.0-0.5 Mg/3 Ml Neb Soln) 3 ml NEB Q4H PRN PRN Reason: Shortness Of Breath/wheezing Last Admin: 10/28/20 20:57 Dose: 3 ml Documented by: Azathioprine (Azathioprine 50 Mg Tab) 100 mg PO DAILY [facility] Last Admin: 10/29/20 08:26 Dose: 100 mg Documented by: Benzonatate (Benzonatate 100 Mg Cap) 200 mg PO TID [facility] Last Admin: 10/29/20 20:13 Dose: 200 mg Documented by: Dexamethasone (Dexamethasone 4 Mg Tab) 6 mg PO DAILY [facility] Stop: 10/31/20 09:01 Last Admin: 10/29/20 08:21 Dose: 6 mg Documented by: Enoxaparin Sodium (Enoxaparin 120 Mg/0.8 Ml Syringe) 110 mg SUBCUT Q12H [facility] Last Admin: 10/29/20 20:12 Dose: 110 mg Documented by: Famotidine (Famotidine 20 Mg Tab) 20 mg PO BID [facility] Last Admin: 10/29/20 20:13 Dose: 20 mg Documented by: Fish Oil (Fish Oil/[place]-3 Fatty Acids 1 Gm Cap) 1 gm PO BEDTIME [facility] Last Admin: 10/29/20 20:13 Dose: 1 gm Documented by: Guaifenesin (Guaifenesin 600 Mg Tab.Er) 600 mg PO TID [facility] Last Admin: 10/29/20 20:13 Dose: 600 mg Documented by: Melatonin (Melatonin 3 Mg Tab) 6 mg PO BEDTIME PRN PRN Reason: Insomnia Ondansetron HCl (Ondansetron 4 Mg/2 Ml Sdv) 4 mg IV Q6H PRN PRN Reason: Nausea/Vomiting Last Admin: 10/25/20 10:22 Dose: 4 mg Documented by: Zinc Sulfate (Zinc Sulfate 220 Mg Cap) 220 mg PO DAILY [facility] Last Admin: 10/29/20 08:22 Dose: 220 mg Documented by: Discontinued Medications Albuterol (Albuterol 6.7 Gm Inhaler) 2 gm INH Q2H PRN PRN Reason: Shortness of Breath Azathioprine (Azathioprine 50 Mg Tab) 50 mg PO BID [facility] Last Admin: 10/23/20 10:24 Dose: 50 mg Documented by: Azathioprine (Azathioprine 50 Mg Tab) 50 mg PO ONETIME ONE Stop: 10/23/20 10:46 Last Admin: 10/23/20 11:14 Dose: 50 mg Documented by: Azathioprine (Azathioprine 50 Mg Tab) 100 mg PO BID [facility] Last Admin: 10/23/20 21:24 Dose: Not Given Documented by: Dexamethasone (Dexamethasone 10 Mg/Ml Sdv) 6 mg IVPUSH ONETIME STA Stop: 10/22/20 20:38 Last Admin: 10/22/20 21:19 Dose: 6 mg Documented by: Dexamethasone (Dexamethasone 10 Mg/Ml Sdv) 6 mg IVPUSH Q24H [facility] Stop: 10/31/20 21:01 Enoxaparin Sodium (Enoxaparin 40 Mg/0.4 Ml Syringe) 40 mg SUBCUT DAILY [facility] Enoxaparin Sodium (Enoxaparin 120 Mg/0.8 Ml Syringe) 110 mg SUBCUT Q12H [facility] Last Admin: 10/25/20 08:25 Dose: 110 mg Documented by: Remdesivir 200 mg/ Sodium (Chloride) 250 mls @ 250 mls/hr IV ONETIME ONE Stop: 10/22/20 20:38 Last Admin: 10/22/20 21:19 Dose: 250 mls/hr Documented by: Remdesivir 100 mg/ Sodium (Chloride) 100 mls @ 100 mls/hr IV Q24H [facility] Stop: 10/26/20 22:59 Last Admin: 10/26/20 21:19 Dose: 100 mls/hr Documented by: Sodium Chloride (Normal Saline) 100 mls @ 60 mls/hr IV ASDIRECTED [facility] Stop: 10/25/20 10:30 Last Admin: 10/25/20 10:49 Dose: 60 mls/hr Documented by: Iopamidol (Iopamidol 755 Mg/Ml 100 Ml Bottle) 100 ml IVPUSH ONETIME ONE Stop: 10/25/20 08:03 Last Admin: 10/25/20 10:49 Dose: 100 ml Documented by: Lisinopril (Lisinopril 20 Mg Tab) 20 mg PO DAILY [facility] Last Admin: 10/25/20 08:27 Dose: Not Given Documented by: Lorazepam (Lorazepam 1 Mg Tab) 1 mg PO ONETIME ONE Stop: 10/25/20 09:22 Last Admin: 10/25/20 09:37 Dose: 1 mg Documented by: Lorazepam (Lorazepam 2 Mg/Ml Sdv) 0.5 mg IVPUSH ONETIME PRN PRN Reason: SEE COMMENTS Stop: 10/25/20 18:00 Non-Formulary Medication (Glucos Sul 2kcl/Msm/Chond/C/Mn [Glucosamine Chondroitin Cap]) 2 each PO BEDTIME [facility] Potassium Chloride (Potassium Chloride 20 Meq Tab.Er) 40 meq PO ONETIME ONE Stop: 10/25/20 09:19 Last Admin: 10/25/20 09:37 Dose: 40 meq Documented by: Sodium Chloride (Sodium Chloride 0.9% 10 Ml Syringe) 10 ml FLUSH ONETIME ONE Stop: 10/25/20 08:03 Last Admin: 10/25/20 10:49 Dose: 10 ml Documented by: Sodium Phosphate (Phosphorus #1 250 Mg Tab) 250 mg PO DAILY [facility] Last Admin: 10/24/20 08:25 Dose: 250 mg Documented by: - Exam Quality Assessment: Supplemental Oxygen (High flow nasal cannula) General: Alert, Oriented HEENT: Pupils Equal, Mucous Membr. Moist/[place] Neck: Supple Lungs: Crackles ([place]). No: Normal Respiratory Effort (Increased respiratory rate) Cardiovascular: Regular Rate, Regular Rhythm GI/Abdominal Exam: Normal Bowel Sounds, Soft, No Organomegaly, No Distention Extremities: Normal Inspection, Normal Range of Motion, Non-Tender, No Pedal Edema Psy/Mental Status: Alert, Normal Affect, Normal Mood - Patient Data Lab Results Last 24 hrs: Laboratory Results - last 24 hr 10/29/20 10/29/20 Range/Units 07:55 07:55 WBC 7.47 (4.23-9.07) K/mm3 RBC 4.60 L (4.63-6.08) M/mm3 Hgb 15.2 (13.7-17.5) gm/dl Hct 45.1 (40.1-51.0) % MCV 98.0 H (79.0-92.2) fl MCH 33.0 H (25.7-32.2) pg MCHC 33.7 (32.2-35.5) g/dl RDW Std Deviation 43.3 (35.1-43.9) fL Plt Count 165 (163-337) K/mm3 MPV 10.5 (9.4-12.3) fl Neut % (Auto) 84.9 H (34.0-67.9) % Lymph % (Auto) 9.5 L (21.8-53.1) % [place] % (Auto) 3.6 L (5.3-12.2) % Eos % (Auto) 0.8 (0.8-7.0) Baso % (Auto) 0.1 (0.1-1.2) % Neut # (Auto) 6.34 H (1.78-5.38) K/mm3 Lymph # (Auto) 0.71 L (1.32-3.57) K/mm3 [place] # (Auto) 0.27 L (0.30-0.82) K/mm3 Eos # (Auto) 0.06 (0.04-0.54) K/mm3 Baso # (Auto) 0.01 (0.01-0.08) K/mm3 Manual Slide Review Normal smear Sodium 137 (136-145) mEq/L Potassium 4.1 (3.5-5.1) mEq/L Chloride 103 (98-107) mEq/L Carbon Dioxide 25 (21-32) mEq/L Anion Gap 13.1 (5-15) BUN 25 H (7-18) mg/dL Creatinine 0.8 (0.7-1.3) mg/dL Est Cr Clr Drug Dosing 112.36 mL/min Estimated GFR (MDRD) > 60 (>60) mL/min BUN/Creatinine Ratio 31.3 H (14-18) Glucose 129 H (70-99) mg/dL Calcium 8.1 L (8.5-10.1) mg/dL Phosphorus 3.6 (2.6-4.7) mg/dL Magnesium 2.3 (1.8-2.4) mg/dL Total Bilirubin 1.1 H (0.2-1.0) mg/dL AST 14 L (15-37) U/L ALT 33 (16-63) U/L Alkaline Phosphatase 56 (46-116) U/L C-Reactive Protein 2.2 H* (<1.0) mg/dL Total Protein 6.0 L (6.4-8.2) g/dl Albumin 2.4 L (3.4-5.0) g/dl Globulin 3.6 gm/dL Albumin/Globulin Ratio 0.7 L (1-2) Result Diagrams: 10/29/20 07:55 10/29/20 07:55 Sepsis Event Note - Evaluation Sepsis Screening Result: No Definite Risk - Focused Exam Vital Signs: Vital Signs Temp Pulse Resp BP Pulse Ox Pulse Ox 10/30/20 05:36 88 L 10/30/20 04:30 97.3 F 52 L 16 100/57 L 91 L 10/29/20 23:47 97.7 F 57 L 16 97/61 93 L 10/29/20 22:00 93 L 10/29/20 19:28 97.5 F 65 16 118/77 85 L - Problem List & Annotations (1) Acute respiratory failure due to COVID-19 SNOMED Code(s): 383507927 Code(s): U07.1 - COVID-19; J96.00 - ACUTE RESPIRATORY FAILURE, UNSP W HYPOXIA OR HYPERCAPNIA Status: Acute Current Visit: Yes (2) Bladder cancer SNOMED Code(s): 282955801 Code(s): C67.9 - MALIGNANT NEOPLASM OF BLADDER, UNSPECIFIED Status: Resolved Current Visit: Yes (3) Hypertension SNOMED Code(s): 30830001 Code(s): I10 - ESSENTIAL (PRIMARY) HYPERTENSION Status: Acute Current Visit: Yes - Problem List Review Problem List Initiated/Reviewed/Updated: Yes - Plan Plan:: 60-year-old with remote history of bladder cancer presents to the emergency department after a little over 1 week of symptoms consistent with COVID-19. Acute respiratory failure secondary to COVID-19 -High flow nasal cannula at 40 L/min and 65% FiO2 -Diagnosed with COVID-19 on 10/14/2020 -Continue to encourage proning and use of the incentive spirometer. -Completed remdesivir -Continue dexamethasone -I-S, Acapella, respiratory therapy consult, titrate FiO2 to keep SPO2 up to 92% -Blood cultures pending -Baricitinib not started because he is already on 2 immunosuppressants, Imuran and dexamethasone, and I felt the risk of immunosuppression was greater than possible benefit at this time. Pulmonary embolism CTA of chest: 1. Findings compatible with bilateral pulmonary emboli. 2. Diffuse findings of Covid pneumonia -Unfortunately patient was initially not put on anticoagulation secondary to thrombocytopenia. He was started on Lovenox as soon as platelets increased a vincent 100,000, but apparently that was not soon enough. -Lovenox at 1 mg/kg twice daily. -Appears to be essentially asymptomatic. Hypertension Blood pressures continues to be low. Blood pressure ranges from low 90s systolic to 110s systolic -Hold his lisinopril Dermatomyositis -On Imuran Hyponatremia Resolved Thrombocytopenia -resolved VTE treated with Lovenox CODE STATUS full code
[2020-10-30] MEDS: Famotidine 20 MG Tab PO SCH ×2 (08:33→21:33)
[2020-10-30] MEDS: Zinc Sulfate 220 MG Cap PO SCH (08:33)
[2020-10-30] MEDS: guaiFENesin 600 MG Tab.ER PO SCH ×3 (08:33→21:32)
[2020-10-30] MEDS: Benzonatate 100 MG Cap PO SCH ×3 (08:33→21:33)
[2020-10-30] MEDS: Dexamethasone 4 MG Tab PO SCH (08:34)
[2020-10-30] MEDS: Enoxaparin 120 MG/0.8 ML Syringe SUBCUT SCH ×2 (08:37→21:33)
[2020-10-30] MEDS: Albuterol/Ipratropium 3.0-0.5 MG/3 ML Neb Soln NEB PRN ×2 (08:59→14:47)
[2020-10-30] MEDS: Fish Oil/Omega-3 Fatty Acids 1 Gm Cap PO SCH (21:32)
[2020-10-31] MEDS: Albuterol/Ipratropium 3.0-0.5 MG/3 ML Neb Soln NEB PRN ×5 (05:56→21:19)
[2020-10-31] MEDS: Enoxaparin 120 MG/0.8 ML Syringe SUBCUT SCH ×2 (09:55→21:08)
[2020-10-31] MEDS: Benzonatate 100 MG Cap PO SCH ×3 (09:55→21:07)
[2020-10-31] MEDS: Famotidine 20 MG Tab PO SCH ×2 (09:55→21:07)
[2020-10-31] MEDS: Zinc Sulfate 220 MG Cap PO SCH (09:56)
[2020-10-31] MEDS: Dexamethasone 4 MG Tab PO SCH (09:56)
[2020-10-31] MEDS: guaiFENesin 600 MG Tab.ER PO SCH ×3 (09:56→21:07)
--- NOTE | 2020-10-31 12:12 | PCM.PN ---
- General Info Date of Service: 10/31/20 Admission Dx/Problem (Free Text): COVID-19 pneumonia Subjective Update: Zaki continues to feel better, his oxygen saturations have stabilized, his pressure support has also been stable at 40 L via high flow nasal cannula, appetite has been better. Functional Status: Reports: Pain Controlled - Review of Systems General: Reports: No Symptoms HEENT: Reports: No Symptoms Pulmonary: Reports: Cough Cardiovascular: Reports: No Symptoms Gastrointestinal: Reports: No Symptoms Musculoskeletal: Reports: No Symptoms, Joint Pain (knee) - Patient Data Vitals - Most Recent: Last Vital Signs Temp 97.0 F 10/31/20 07:41 Pulse 57 L 10/31/20 07:41 Resp 18 10/31/20 07:41 BP 108/66 10/31/20 07:41 Pulse Ox 90 L 10/31/20 09:58 Weight - Most Recent: 240 lb 8 oz I&O - Last 24 Hours: Intake & Output 10/30/20 10/31/20 10/31/20 22:59 06:59 14:59 Intake Total 1590 300 Output Total 1000 1275 Balance 590 -975 Lab Results Last 24 Hours: Laboratory Results - last 24 hr 10/31/20 10/31/20 10/31/20 Range/Units 06:14 06:14 06:14 WBC 7.78 (4.23-9.07) K/mm3 RBC 4.76 (4.63-6.08) M/mm3 Hgb 15.4 (13.7-17.5) gm/dl Hct 47.5 (40.1-51.0) % MCV 99.8 H (79.0-92.2) fl MCH 32.4 H (25.7-32.2) pg MCHC 32.4 (32.2-35.5) g/dl RDW Std Deviation 45.7 H (35.1-43.9) fL Plt Count 156 L (163-337) K/mm3 MPV 10.8 (9.4-12.3) fl Neut % (Auto) 80.3 H (34.0-67.9) % Lymph % (Auto) 10.9 L (21.8-53.1) % [place] % (Auto) 6.0 (5.3-12.2) % Eos % (Auto) 0.6 L (0.8-7.0) Baso % (Auto) 0.1 (0.1-1.2) % Neut # (Auto) 6.24 H (1.78-5.38) K/mm3 Lymph # (Auto) 0.85 L (1.32-3.57) K/mm3 [place] # (Auto) 0.47 (0.30-0.82) K/mm3 Eos # (Auto) 0.05 (0.04-0.54) K/mm3 Baso # (Auto) 0.01 (0.01-0.08) K/mm3 D-Dimer, Quantitative 1.96 H (0.19-0.50) mg/L Sodium 138 (136-145) mEq/L Potassium 4.4 (3.5-5.1) mEq/L Chloride 105 (98-107) mEq/L Carbon Dioxide 24 (21-32) mEq/L Anion Gap 13.4 (5-15) BUN 26 H (7-18) mg/dL Creatinine 0.8 (0.7-1.3) mg/dL Est Cr Clr Drug Dosing 112.36 mL/min Estimated GFR (MDRD) > 60 (>60) mL/min BUN/Creatinine Ratio 32.5 H (14-18) Glucose 111 H (70-99) mg/dL Calcium 7.9 L (8.5-10.1) mg/dL Phosphorus 3.4 (2.6-4.7) mg/dL Magnesium 2.2 (1.8-2.4) mg/dL Total Bilirubin 0.9 (0.2-1.0) mg/dL AST 17 (15-37) U/L ALT 40 (16-63) U/L Alkaline Phosphatase 53 (46-116) U/L C-Reactive Protein < 0.2 (<1.0) mg/dL Total Protein 6.1 L (6.4-8.2) g/dl Albumin 2.4 L (3.4-5.0) g/dl Globulin 3.7 gm/dL Albumin/Globulin Ratio 0.7 L (1-2) Med Orders - Current: Current Medications Acetaminophen (Acetaminophen 325 Mg Tab) 650 mg PO Q4H PRN PRN Reason: Pain (Mild 1-3)/fever Last Admin: 10/29/20 15:57 Dose: 650 mg Documented by: Acetaminophen/Codeine Phosphate (Acetaminophen/Codeine 300-30 Mg Tab) 2 tab PO Q4H PRN PRN Reason: Cough Last Admin: 10/27/20 07:32 Dose: 2 tab Documented by: Al Hydroxide/Mg Hydroxide (Aluminum Hydroxide/Magnesium Hydroxide/Simethicone Susp 30 Ml Cup) 30 ml PO Q4H PRN PRN Reason: Heartburn Last Admin: 10/29/20 20:14 Dose: 30 ml Documented by: Albuterol (Albuterol 6.7 Gm Inhaler) 0 gm INH Q2H PRN PRN Reason: Shortness of Breath Last Admin: 10/30/20 05:36 Dose: 2 puff Documented by: Albuterol/Ipratropium (Albuterol/Ipratropium 3.0-0.5 Mg/3 Ml Neb Soln) 3 ml NEB Q4H PRN PRN Reason: Shortness Of Breath/wheezing Last Admin: 10/31/20 09:27 Dose: 3 ml Documented by: Azathioprine (Azathioprine 50 Mg Tab) 100 mg PO DAILY [facility] Last Admin: 10/31/20 09:58 Dose: 100 mg Documented by: Benzonatate (Benzonatate 100 Mg Cap) 200 mg PO TID [facility] Last Admin: 10/31/20 09:55 Dose: 200 mg Documented by: Enoxaparin Sodium (Enoxaparin 120 Mg/0.8 Ml Syringe) 110 mg SUBCUT Q12H [facility] Last Admin: 10/31/20 09:55 Dose: 110 mg Documented by: Famotidine (Famotidine 20 Mg Tab) 20 mg PO BID [facility] Last Admin: 10/31/20 09:55 Dose: 20 mg Documented by: Fish Oil (Fish Oil/[place]-3 Fatty Acids 1 Gm Cap) 1 gm PO BEDTIME [facility] Last Admin: 10/30/20 21:32 Dose: 1 gm Documented by: Guaifenesin (Guaifenesin 600 Mg Tab.Er) 600 mg PO TID [facility] Last Admin: 10/31/20 09:56 Dose: 600 mg Documented by: Melatonin (Melatonin 3 Mg Tab) 6 mg PO BEDTIME PRN PRN Reason: Insomnia Ondansetron HCl (Ondansetron 4 Mg/2 Ml Sdv) 4 mg IV Q6H PRN PRN Reason: Nausea/Vomiting Last Admin: 10/25/20 10:22 Dose: 4 mg Documented by: Zinc Sulfate (Zinc Sulfate 220 Mg Cap) 220 mg PO DAILY [facility] Last Admin: 10/31/20 09:56 Dose: 220 mg Documented by: Discontinued Medications Albuterol (Albuterol 6.7 Gm Inhaler) 2 gm INH Q2H PRN PRN Reason: Shortness of Breath Azathioprine (Azathioprine 50 Mg Tab) 50 mg PO BID [facility] Last Admin: 10/23/20 10:24 Dose: 50 mg Documented by: Azathioprine (Azathioprine 50 Mg Tab) 50 mg PO ONETIME ONE Stop: 10/23/20 10:46 Last Admin: 10/23/20 11:14 Dose: 50 mg Documented by: Azathioprine (Azathioprine 50 Mg Tab) 100 mg PO BID [facility] Last Admin: 10/23/20 21:24 Dose: Not Given Documented by: Dexamethasone (Dexamethasone 10 Mg/Ml Sdv) 6 mg IVPUSH ONETIME STA Stop: 10/22/20 20:38 Last Admin: 10/22/20 21:19 Dose: 6 mg Documented by: Dexamethasone (Dexamethasone 10 Mg/Ml Sdv) 6 mg IVPUSH Q24H [facility] Stop: 10/31/20 21:01 Dexamethasone (Dexamethasone 4 Mg Tab) 6 mg PO DAILY [facility] Stop: 10/31/20 09:01 Last Admin: 10/31/20 09:56 Dose: 6 mg Documented by: Enoxaparin Sodium (Enoxaparin 40 Mg/0.4 Ml Syringe) 40 mg SUBCUT DAILY [facility] Enoxaparin Sodium (Enoxaparin 120 Mg/0.8 Ml Syringe) 110 mg SUBCUT Q12H [facility] Last Admin: 10/25/20 08:25 Dose: 110 mg Documented by: Remdesivir 200 mg/ Sodium (Chloride) 250 mls @ 250 mls/hr IV ONETIME ONE Stop: 10/22/20 20:38 Last Admin: 10/22/20 21:19 Dose: 250 mls/hr Documented by: Remdesivir 100 mg/ Sodium (Chloride) 100 mls @ 100 mls/hr IV Q24H [facility] Stop: 10/26/20 22:59 Last Admin: 10/26/20 21:19 Dose: 100 mls/hr Documented by: Sodium Chloride (Normal Saline) 100 mls @ 60 mls/hr IV ASDIRECTED [facility] Stop: 10/25/20 10:30 Last Admin: 10/25/20 10:49 Dose: 60 mls/hr Documented by: Iopamidol (Iopamidol 755 Mg/Ml 100 Ml Bottle) 100 ml IVPUSH ONETIME ONE Stop: 10/25/20 08:03 Last Admin: 10/25/20 10:49 Dose: 100 ml Documented by: Lisinopril (Lisinopril 20 Mg Tab) 20 mg PO DAILY [facility] Last Admin: 10/25/20 08:27 Dose: Not Given Documented by: Lorazepam (Lorazepam 1 Mg Tab) 1 mg PO ONETIME ONE Stop: 10/25/20 09:22 Last Admin: 10/25/20 09:37 Dose: 1 mg Documented by: Lorazepam (Lorazepam 2 Mg/Ml Sdv) 0.5 mg IVPUSH ONETIME PRN PRN Reason: SEE COMMENTS Stop: 10/25/20 18:00 Non-Formulary Medication (Glucos Sul 2kcl/Msm/Chond/C/Mn [Glucosamine Chondroitin Cap]) 2 each PO BEDTIME [facility] Potassium Chloride (Potassium Chloride 20 Meq Tab.Er) 40 meq PO ONETIME ONE Stop: 10/25/20 09:19 Last Admin: 10/25/20 09:37 Dose: 40 meq Documented by: Sodium Chloride (Sodium Chloride 0.9% 10 Ml Syringe) 10 ml FLUSH ONETIME ONE Stop: 10/25/20 08:03 Last Admin: 10/25/20 10:49 Dose: 10 ml Documented by: Sodium Phosphate (Phosphorus #1 250 Mg Tab) 250 mg PO DAILY [facility] Last Admin: 10/24/20 08:25 Dose: 250 mg Documented by: - Exam General: Alert, Oriented HEENT: Pupils Equal, Mucous Membr. Moist/[place] Neck: Supple Lungs: Normal Respiratory Effort, Crackles (Bibasilar, left worse than right) GI/Abdominal Exam: Normal Bowel Sounds, Soft, Non-Tender, No Organomegaly, No Distention, No Abnormal Bruit, No Mass, Pelvis Stable Skin: Warm, Dry, Intact Psy/Mental Status: Alert, Normal Affect, Normal Mood - Patient Data Lab Results Last 24 hrs: Laboratory Results - last 24 hr 10/31/20 10/31/20 10/31/20 Range/Units 06:14 06:14 06:14 WBC 7.78 (4.23-9.07) K/mm3 RBC 4.76 (4.63-6.08) M/mm3 Hgb 15.4 (13.7-17.5) gm/dl Hct 47.5 (40.1-51.0) % MCV 99.8 H (79.0-92.2) fl MCH 32.4 H (25.7-32.2) pg MCHC 32.4 (32.2-35.5) g/dl RDW Std Deviation 45.7 H (35.1-43.9) fL Plt Count 156 L (163-337) K/mm3 MPV 10.8 (9.4-12.3) fl Neut % (Auto) 80.3 H (34.0-67.9) % Lymph % (Auto) 10.9 L (21.8-53.1) % [place] % (Auto) 6.0 (5.3-12.2) % Eos % (Auto) 0.6 L (0.8-7.0) Baso % (Auto) 0.1 (0.1-1.2) % Neut # (Auto) 6.24 H (1.78-5.38) K/mm3 Lymph # (Auto) 0.85 L (1.32-3.57) K/mm3 [place] # (Auto) 0.47 (0.30-0.82) K/mm3 Eos # (Auto) 0.05 (0.04-0.54) K/mm3 Baso # (Auto) 0.01 (0.01-0.08) K/mm3 D-Dimer, Quantitative 1.96 H (0.19-0.50) mg/L Sodium 138 (136-145) mEq/L Potassium 4.4 (3.5-5.1) mEq/L Chloride 105 (98-107) mEq/L Carbon Dioxide 24 (21-32) mEq/L Anion Gap 13.4 (5-15) BUN 26 H (7-18) mg/dL Creatinine 0.8 (0.7-1.3) mg/dL Est Cr Clr Drug Dosing 112.36 mL/min Estimated GFR (MDRD) > 60 (>60) mL/min BUN/Creatinine Ratio 32.5 H (14-18) Glucose 111 H (70-99) mg/dL Calcium 7.9 L (8.5-10.1) mg/dL Phosphorus 3.4 (2.6-4.7) mg/dL Magnesium 2.2 (1.8-2.4) mg/dL Total Bilirubin 0.9 (0.2-1.0) mg/dL AST 17 (15-37) U/L ALT 40 (16-63) U/L Alkaline Phosphatase 53 (46-116) U/L C-Reactive Protein < 0.2 (<1.0) mg/dL Total Protein 6.1 L (6.4-8.2) g/dl Albumin 2.4 L (3.4-5.0) g/dl Globulin 3.7 gm/dL Albumin/Globulin Ratio 0.7 L (1-2) Result Diagrams: 10/31/20 06:14 10/31/20 06:14 Sepsis Event Note - Evaluation Sepsis Screening Result: No Definite Risk - Focused Exam Vital Signs: Vital Signs Temp Pulse Resp BP Pulse Ox Pulse Ox 10/31/20 09:58 90 L 10/31/20 09:27 93 L 10/31/20 07:41 97.0 F 57 L 18 108/66 90 L 10/31/20 05:59 91 L 10/31/20 05:47 98.1 F 58 L 20 111/71 93 L - Problem List & Annotations (1) Acute respiratory failure due to COVID-19 SNOMED Code(s): 447078612 Code(s): U07.1 - COVID-19; J96.00 - ACUTE RESPIRATORY FAILURE, UNSP W HYPOXIA OR HYPERCAPNIA Status: Acute Current Visit: Yes (2) Bladder cancer SNOMED Code(s): 980669290 Code(s): C67.9 - MALIGNANT NEOPLASM OF BLADDER, UNSPECIFIED Status: Resolved Current Visit: Yes (3) Hypertension SNOMED Code(s): 64142975 Code(s): I10 - ESSENTIAL (PRIMARY) HYPERTENSION Status: Acute Current Visit: Yes - Problem List Review Problem List Initiated/Reviewed/Updated: Yes - Plan Plan:: 60-year-old with remote history of bladder cancer presents to the emergency department after a little over 1 week of symptoms consistent with COVID-19. Acute respiratory failure secondary to COVID-19 -High flow nasal cannula at 40 L/min and 50% FiO2 -Diagnosed with COVID-19 on 10/14/2020 -Continue to encourage proning and use of the incentive spirometer. -Completed remdesivir -Continue dexamethasone -I-S, Acapella, respiratory therapy consult, titrate FiO2 to keep SPO2 up to 92% -Blood cultures no growth -Baricitinib not started because he is already on 2 immunosuppressants, Imuran and dexamethasone, and I felt the risk of immunosuppression was greater than possible benefit at this time. Pulmonary embolism CTA of chest: 1. Findings compatible with bilateral pulmonary emboli. 2. Diffuse findings of Covid pneumonia -Unfortunately patient was initially not put on anticoagulation secondary to thrombocytopenia. He was started on Lovenox as soon as platelets increased above 100,000, but apparently that was not soon enough. -Lovenox at 1 mg/kg twice daily. -Appears to be essentially asymptomatic. Hypertension Blood pressures improved. -Hold his lisinopril Dermatomyositis -On Imuran Hyponatremia Resolved Thrombocytopenia -resolved VTE treated with Lovenox CODE STATUS full code
[2020-10-31] MEDS: Albuterol 6.7 GM Inhaler INH PRN (20:04)
[2020-10-31] MEDS: Fish Oil/Omega-3 Fatty Acids 1 Gm Cap PO SCH (21:07)
[2020-11-01] MEDS: Albuterol/Ipratropium 3.0-0.5 MG/3 ML Neb Soln NEB PRN ×2 (06:06→20:18)
[2020-11-01] MEDS: Albuterol 6.7 GM Inhaler INH PRN (08:26)
[2020-11-01] MEDS: Zinc Sulfate 220 MG Cap PO SCH (09:25)
[2020-11-01] MEDS: Enoxaparin 120 MG/0.8 ML Syringe SUBCUT SCH (09:25)
[2020-11-01] MEDS: Benzonatate 100 MG Cap PO SCH ×3 (09:25→20:52)
[2020-11-01] MEDS: Famotidine 20 MG Tab PO SCH ×2 (09:25→20:53)
[2020-11-01] MEDS: guaiFENesin 600 MG Tab.ER PO SCH ×3 (09:25→20:53)
--- NOTE | 2020-11-01 10:40 | PCM.PN ---
- General Info Date of Service: 11/01/20 Admission Dx/Problem (Free Text): COVID-19 pneumonia Subjective Update: Zaki continues to improve every day. His spirits are improved, his oxygenation has also improved, and he is less short of breath. Functional Status: Reports: Pain Controlled - Review of Systems General: Reports: No Symptoms HEENT: Reports: No Symptoms Pulmonary: Reports: No Symptoms Cardiovascular: Reports: No Symptoms Gastrointestinal: Reports: No Symptoms Musculoskeletal: Reports: No Symptoms - Patient Data Vitals - Most Recent: Last Vital Signs Temp 97.5 F 11/01/20 08:15 Pulse 62 11/01/20 08:16 Resp 18 11/01/20 08:15 BP 104/62 11/01/20 08:15 Pulse Ox 93 L 11/01/20 08:27 Weight - Most Recent: 230 lb 12.8 oz I&O - Last 24 Hours: Intake & Output 10/31/20 11/01/20 11/01/20 22:59 06:59 14:59 Intake Total 560 600 Output Total 900 Balance 560 -300 Med Orders - Current: Current Medications Acetaminophen (Acetaminophen 325 Mg Tab) 650 mg PO Q4H PRN PRN Reason: Pain (Mild 1-3)/fever Last Admin: 10/29/20 15:57 Dose: 650 mg Documented by: Acetaminophen/Codeine Phosphate (Acetaminophen/Codeine 300-30 Mg Tab) 2 tab PO Q4H PRN PRN Reason: Cough Last Admin: 10/27/20 07:32 Dose: 2 tab Documented by: Al Hydroxide/Mg Hydroxide (Aluminum Hydroxide/Magnesium Hydroxide/Simethicone Susp 30 Ml Cup) 30 ml PO Q4H PRN PRN Reason: Heartburn Last Admin: 10/29/20 20:14 Dose: 30 ml Documented by: Albuterol (Albuterol 6.7 Gm Inhaler) 0 gm INH Q2H PRN PRN Reason: Shortness of Breath Last Admin: 11/01/20 08:26 Dose: 2 puff Documented by: Albuterol/Ipratropium (Albuterol/Ipratropium 3.0-0.5 Mg/3 Ml Neb Soln) 3 ml NEB Q4H PRN PRN Reason: Shortness Of Breath/wheezing Last Admin: 11/01/20 06:06 Dose: 3 ml Documented by: Azathioprine (Azathioprine 50 Mg Tab) 100 mg PO DAILY [facility] Last Admin: 11/01/20 09:26 Dose: 100 mg Documented by: Benzonatate (Benzonatate 100 Mg Cap) 200 mg PO TID [facility] Last Admin: 11/01/20 09:25 Dose: 200 mg Documented by: Enoxaparin Sodium (Enoxaparin 120 Mg/0.8 Ml Syringe) 110 mg SUBCUT Q12H [facility] Last Admin: 11/01/20 09:25 Dose: 110 mg Documented by: Famotidine (Famotidine 20 Mg Tab) 20 mg PO BID [facility] Last Admin: 11/01/20 09:25 Dose: 20 mg Documented by: Fish Oil (Fish Oil/[place]-3 Fatty Acids 1 Gm Cap) 1 gm PO BEDTIME [facility] Last Admin: 10/31/20 21:07 Dose: 1 gm Documented by: Guaifenesin (Guaifenesin 600 Mg Tab.Er) 600 mg PO TID [facility] Last Admin: 11/01/20 09:25 Dose: 600 mg Documented by: Melatonin (Melatonin 3 Mg Tab) 6 mg PO BEDTIME PRN PRN Reason: Insomnia Ondansetron HCl (Ondansetron 4 Mg/2 Ml Sdv) 4 mg IV Q6H PRN PRN Reason: Nausea/Vomiting Last Admin: 10/25/20 10:22 Dose: 4 mg Documented by: Zinc Sulfate (Zinc Sulfate 220 Mg Cap) 220 mg PO DAILY [facility] Last Admin: 11/01/20 09:25 Dose: 220 mg Documented by: Discontinued Medications Albuterol (Albuterol 6.7 Gm Inhaler) 2 gm INH Q2H PRN PRN Reason: Shortness of Breath Azathioprine (Azathioprine 50 Mg Tab) 50 mg PO BID [facility] Last Admin: 10/23/20 10:24 Dose: 50 mg Documented by: Azathioprine (Azathioprine 50 Mg Tab) 50 mg PO ONETIME ONE Stop: 10/23/20 10:46 Last Admin: 10/23/20 11:14 Dose: 50 mg Documented by: Azathioprine (Azathioprine 50 Mg Tab) 100 mg PO BID [facility] Last Admin: 10/23/20 21:24 Dose: Not Given Documented by: Dexamethasone (Dexamethasone 10 Mg/Ml Sdv) 6 mg IVPUSH ONETIME STA Stop: 10/22/20 20:38 Last Admin: 09/07/21 21:19 Dose: 6 mg Documented by: Dexamethasone (Dexamethasone 10 Mg/Ml Sdv) 6 mg IVPUSH Q24H [facility] Stop: 10/31/20 21:01 Dexamethasone (Dexamethasone 4 Mg Tab) 6 mg PO DAILY [facility] Stop: 10/31/20 09:01 Last Admin: 10/31/20 09:56 Dose: 6 mg Documented by: Enoxaparin Sodium (Enoxaparin 40 Mg/0.4 Ml Syringe) 40 mg SUBCUT DAILY [facility] Enoxaparin Sodium (Enoxaparin 120 Mg/0.8 Ml Syringe) 110 mg SUBCUT Q12H [facility] Last Admin: 10/25/20 08:25 Dose: 110 mg Documented by: Remdesivir 200 mg/ Sodium (Chloride) 250 mls @ 250 mls/hr IV ONETIME ONE Stop: 10/22/20 20:38 Last Admin: 10/22/20 21:19 Dose: 250 mls/hr Documented by: Remdesivir 100 mg/ Sodium (Chloride) 100 mls @ 100 mls/hr IV Q24H [facility] Stop: 10/26/20 22:59 Last Admin: 10/26/20 21:19 Dose: 100 mls/hr Documented by: Sodium Chloride (Normal Saline) 100 mls @ 60 mls/hr IV ASDIRECTED [facility] Stop: 10/25/20 10:30 Last Admin: 10/25/20 10:49 Dose: 60 mls/hr Documented by: Iopamidol (Iopamidol 755 Mg/Ml 100 Ml Bottle) 100 ml IVPUSH ONETIME ONE Stop: 10/25/20 08:03 Last Admin: 10/25/20 10:49 Dose: 100 ml Documented by: Lisinopril (Lisinopril 20 Mg Tab) 20 mg PO DAILY [facility] Last Admin: 10/25/20 08:27 Dose: Not Given Documented by: Lorazepam (Lorazepam 1 Mg Tab) 1 mg PO ONETIME ONE Stop: 10/25/20 09:22 Last Admin: 10/25/20 09:37 Dose: 1 mg Documented by: Lorazepam (Lorazepam 2 Mg/Ml Sdv) 0.5 mg IVPUSH ONETIME PRN PRN Reason: SEE COMMENTS Stop: 10/25/20 18:00 Non-Formulary Medication (Glucos Sul 2kcl/Msm/Chond/C/Mn [Glucosamine Chondroitin Cap]) 2 each PO BEDTIME [facility] Potassium Chloride (Potassium Chloride 20 Meq Tab.Er) 40 meq PO ONETIME ONE Stop: 10/25/20 09:19 Last Admin: 10/25/20 09:37 Dose: 40 meq Documented by: Sodium Chloride (Sodium Chloride 0.9% 10 Ml Syringe) 10 ml FLUSH ONETIME ONE Stop: 10/25/20 08:03 Last Admin: 10/25/20 10:49 Dose: 10 ml Documented by: Sodium Phosphate (Phosphorus #1 250 Mg Tab) 250 mg PO DAILY [facility] Last Admin: 10/24/20 08:25 Dose: 250 mg Documented by: - Exam Quality Assessment: Supplemental Oxygen General: Alert, Oriented HEENT: Pupils Equal, Mucous Membr. Moist/[place] Neck: Supple Lungs: Crackles (Bibasilar). No: Normal Respiratory Effort (Mildly increased effort) Cardiovascular: Regular Rate, Regular Rhythm GI/Abdominal Exam: Normal Bowel Sounds, Soft, Non-Tender, No Distention Extremities: Normal Inspection, No Pedal Edema Psy/Mental Status: Alert, Normal Affect, Normal Mood - Patient Data Result Diagrams: 10/31/20 06:14 10/31/20 06:14 Sepsis Event Note - Evaluation Sepsis Screening Result: No Definite Risk - Focused Exam Vital Signs: Vital Signs Temp Pulse Resp BP Pulse Ox Pulse Ox 11/01/20 08:27 93 L 11/01/20 08:16 62 88 L 11/01/20 08:15 97.5 F 60 18 104/62 85 L 11/01/20 06:07 96 11/01/20 05:22 98.1 F 64 24 H 102/61 92 L - Problem List & Annotations (1) Acute respiratory failure due to COVID-19 SNOMED Code(s): 780354139 Code(s): U07.1 - COVID-19; J96.00 - ACUTE RESPIRATORY FAILURE, UNSP W HYPOXIA OR HYPERCAPNIA Status: Acute Current Visit: Yes (2) Bladder cancer SNOMED Code(s): 893826702 Code(s): C67.9 - MALIGNANT NEOPLASM OF BLADDER, UNSPECIFIED Status: Resolved Current Visit: Yes (3) Hypertension SNOMED Code(s): 49644332 Code(s): I10 - ESSENTIAL (PRIMARY) HYPERTENSION Status: Acute Current Visit: Yes - Problem List Review Problem List Initiated/Reviewed/Updated: Yes - Plan Plan:: 60-year-old with remote history of bladder cancer presents to the emergency department after a little over 1 week of symptoms consistent with COVID-19. Acute respiratory failure secondary to COVID-19 -High flow nasal cannula at 30 L/min and 50% FiO2 -Diagnosed with COVID-19 on 10/14/2020 -Continue to encourage proning and use of the incentive spirometer. -Completed 5-day course of remdesivir -Completed 10-day course of dexamethasone -I-S, Acapella, respiratory therapy consult, titrate FiO2 to keep SPO2 up to 92% -Blood cultures no growth -Baricitinib not started because he is already on 2 immunosuppressants, Imuran and dexamethasone, and I felt the risk of immunosuppression was greater than possible benefit at this time. Pulmonary embolism CTA of chest: 1. Findings compatible with bilateral pulmonary emboli. 2. Diffuse findings of Covid pneumonia -Unfortunately patient was initially not put on anticoagulation secondary to thrombocytopenia. He was started on Lovenox as soon as platelets increased above 100,000, but apparently that was not soon enough. -Lovenox at 1 mg/kg twice daily. -> Switch to Eliquis Hypertension Blood pressures improved. -Hold his lisinopril Dermatomyositis -On Imuran Hyponatremia Resolved Thrombocytopenia -resolved VTE treated with Lovenox CODE STATUS full code
[2020-11-01] MEDS: Apixaban 5 MG Tab PO SCH (20:52)
[2020-11-01] MEDS: Fish Oil/Omega-3 Fatty Acids 1 Gm Cap PO SCH (20:53)
[2020-11-01] MEDS: Melatonin 3 MG Tab PO PRN (21:02)
[2020-11-02] MEDS: Albuterol/Ipratropium 3.0-0.5 MG/3 ML Neb Soln NEB PRN (05:35)
[2020-11-02] MEDS: Albuterol 6.7 GM Inhaler INH PRN (08:23)
[2020-11-02] MEDS: Zinc Sulfate 220 MG Cap PO SCH (08:45)
[2020-11-02] MEDS: guaiFENesin 600 MG Tab.ER PO SCH ×3 (08:45→21:44)
[2020-11-02] MEDS: Benzonatate 100 MG Cap PO SCH ×3 (08:45→21:45)
[2020-11-02] MEDS: Apixaban 5 MG Tab PO SCH ×2 (08:45→21:43)
[2020-11-02] MEDS: Famotidine 20 MG Tab PO SCH ×2 (08:45→21:44)
--- NOTE | 2020-11-02 15:23 | PCM.PN ---
- General Info Date of Service: 11/02/20 Admission Dx/Problem (Free Text): COVID-19 pneumonia Subjective Update: Patient states she is feeling fatigued. He has been weaned to 6 L nasal cannula off of high flow nasal cannula. Appetite is good. Functional Status: Reports: Pain Controlled - Review of Systems General: Reports: Fatigue HEENT: Reports: No Symptoms Pulmonary: Reports: No Symptoms Cardiovascular: Reports: No Symptoms Gastrointestinal: Reports: No Symptoms Musculoskeletal: Reports: No Symptoms - Patient Data Vitals - Most Recent: Last Vital Signs Temp 97.9 F 11/02/20 08:43 Pulse 64 11/02/20 08:43 Resp 24 H 11/02/20 08:43 BP 109/64 11/02/20 08:43 Pulse Ox 91 L 11/02/20 08:43 Weight - Most Recent: 232 lb 4.8 oz I&O - Last 24 Hours: Intake & Output 11/02/20 11/02/20 11/02/20 06:59 14:59 22:59 Intake Total 575 240 Output Total 1075 Balance -500 240 Med Orders - Current: Current Medications Acetaminophen (Acetaminophen 325 Mg Tab) 650 mg PO Q4H PRN PRN Reason: Pain (Mild 1-3)/fever Last Admin: 10/29/20 15:57 Dose: 650 mg Documented by: Acetaminophen/Codeine Phosphate (Acetaminophen/Codeine 300-30 Mg Tab) 2 tab PO Q4H PRN PRN Reason: Cough Last Admin: 10/27/20 07:32 Dose: 2 tab Documented by: Al Hydroxide/Mg Hydroxide (Aluminum Hydroxide/Magnesium Hydroxide/Simethicone Susp 30 Ml Cup) 30 ml PO Q4H PRN PRN Reason: Heartburn Last Admin: 10/29/20 20:14 Dose: 30 ml Documented by: Albuterol (Albuterol 6.7 Gm Inhaler) 0 gm INH Q2H PRN PRN Reason: Shortness of Breath Last Admin: 11/02/20 08:23 Dose: 2 puff Documented by: Albuterol/Ipratropium (Albuterol/Ipratropium 3.0-0.5 Mg/3 Ml Neb Soln) 3 ml NEB Q4H PRN PRN Reason: Shortness Of Breath/wheezing Last Admin: 11/02/20 05:35 Dose: 3 ml Documented by: Apixaban (Apixaban 5 Mg Tab) 10 mg PO BID [facility] Last Admin: 11/02/20 08:45 Dose: 10 mg Documented by: Azathioprine (Azathioprine 50 Mg Tab) 100 mg PO DAILY [facility] Last Admin: 11/02/20 08:50 Dose: 100 mg Documented by: Benzonatate (Benzonatate 100 Mg Cap) 200 mg PO TID [facility] Last Admin: 11/02/20 14:35 Dose: 200 mg Documented by: Famotidine (Famotidine 20 Mg Tab) 20 mg PO BID [facility] Last Admin: 11/02/20 08:45 Dose: 20 mg Documented by: Fish Oil (Fish Oil/[place]-3 Fatty Acids 1 Gm Cap) 1 gm PO BEDTIME [facility] Last Admin: 11/01/20 20:53 Dose: 1 gm Documented by: Guaifenesin (Guaifenesin 600 Mg Tab.Er) 600 mg PO TID [facility] Last Admin: 11/02/20 14:35 Dose: 600 mg Documented by: Melatonin (Melatonin 3 Mg Tab) 6 mg PO BEDTIME PRN PRN Reason: Insomnia Last Admin: 11/01/20 21:02 Dose: 6 mg Documented by: Ondansetron HCl (Ondansetron 4 Mg/2 Ml Sdv) 4 mg IV Q6H PRN PRN Reason: Nausea/Vomiting Last Admin: 10/25/20 10:22 Dose: 4 mg Documented by: Zinc Sulfate (Zinc Sulfate 220 Mg Cap) 220 mg PO DAILY [facility] Last Admin: 11/02/20 08:45 Dose: 220 mg Documented by: Discontinued Medications Albuterol (Albuterol 6.7 Gm Inhaler) 2 gm INH Q2H PRN PRN Reason: Shortness of Breath Azathioprine (Azathioprine 50 Mg Tab) 50 mg PO BID [facility] Last Admin: 10/23/20 10:24 Dose: 50 mg Documented by: Azathioprine (Azathioprine 50 Mg Tab) 50 mg PO ONETIME ONE Stop: 10/23/20 10:46 Last Admin: 10/23/20 11:14 Dose: 50 mg Documented by: Azathioprine (Azathioprine 50 Mg Tab) 100 mg PO BID [facility] Last Admin: 10/23/20 21:24 Dose: Not Given Documented by: Dexamethasone (Dexamethasone 10 Mg/Ml Sdv) 6 mg IVPUSH ONETIME STA Stop: 10/22/20 20:38 Last Admin: 10/22/20 21:19 Dose: 6 mg Documented by: Dexamethasone (Dexamethasone 10 Mg/Ml Sdv) 6 mg IVPUSH Q24H [facility] Stop: 10/31/20 21:01 Dexamethasone (Dexamethasone 4 Mg Tab) 6 mg PO DAILY [facility] Stop: 10/31/20 09:01 Last Admin: 10/31/20 09:56 Dose: 6 mg Documented by: Enoxaparin Sodium (Enoxaparin 40 Mg/0.4 Ml Syringe) 40 mg SUBCUT DAILY [facility] Enoxaparin Sodium (Enoxaparin 120 Mg/0.8 Ml Syringe) 110 mg SUBCUT Q12H [facility] Last Admin: 10/25/20 08:25 Dose: 110 mg Documented by: Enoxaparin Sodium (Enoxaparin 120 Mg/0.8 Ml Syringe) 110 mg SUBCUT Q12H [facility] Last Admin: 11/01/20 09:25 Dose: 110 mg Documented by: Remdesivir 200 mg/ Sodium (Chloride) 250 mls @ 250 mls/hr IV ONETIME ONE Stop: 10/22/20 20:38 Last Admin: 10/22/20 21:19 Dose: 250 mls/hr Documented by: Remdesivir 100 mg/ Sodium (Chloride) 100 mls @ 100 mls/hr IV Q24H [facility] Stop: 10/26/20 22:59 Last Admin: 10/26/20 21:19 Dose: 100 mls/hr Documented by: Sodium Chloride (Normal Saline) 100 mls @ 60 mls/hr IV ASDIRECTED [facility] Stop: 10/25/20 10:30 Last Admin: 10/25/20 10:49 Dose: 60 mls/hr Documented by: Iopamidol (Iopamidol 755 Mg/Ml 100 Ml Bottle) 100 ml IVPUSH ONETIME ONE Stop: 10/25/20 08:03 Last Admin: 10/25/20 10:49 Dose: 100 ml Documented by: Lisinopril (Lisinopril 20 Mg Tab) 20 mg PO DAILY [facility] Last Admin: 10/25/20 08:27 Dose: Not Given Documented by: Lorazepam (Lorazepam 1 Mg Tab) 1 mg PO ONETIME ONE Stop: 10/25/20 09:22 Last Admin: 10/25/20 09:37 Dose: 1 mg Documented by: Lorazepam (Lorazepam 2 Mg/Ml Sdv) 0.5 mg IVPUSH ONETIME PRN PRN Reason: SEE COMMENTS Stop: 10/25/20 18:00 Non-Formulary Medication (Glucos Sul 2kcl/Msm/Chond/C/Mn [Glucosamine Chondroitin Cap]) 2 each PO BEDTIME [facility] Potassium Chloride (Potassium Chloride 20 Meq Tab.Er) 40 meq PO ONETIME ONE Stop: 10/25/20 09:19 Last Admin: 10/25/20 09:37 Dose: 40 meq Documented by: Sodium Chloride (Sodium Chloride 0.9% 10 Ml Syringe) 10 ml FLUSH ONETIME ONE Stop: 10/25/20 08:03 Last Admin: 10/25/20 10:49 Dose: 10 ml Documented by: Sodium Phosphate (Phosphorus #1 250 Mg Tab) 250 mg PO DAILY [facility] Last Admin: 10/24/20 08:25 Dose: 250 mg Documented by: - Exam Quality Assessment: Supplemental Oxygen General: Alert, Oriented HEENT: Pupils Equal, Mucous Membr. Moist/[place] Neck: Supple Lungs: Normal Respiratory Effort, Crackles (Bibasilar) Cardiovascular: Regular Rate, Regular Rhythm GI/Abdominal Exam: Normal Bowel Sounds, Soft, Non-Tender, No Distention Extremities: Normal Inspection, Normal Range of Motion, Non-Tender, No Pedal Edema Skin: Warm, Dry, Intact Psy/Mental Status: Alert, Normal Affect, Normal Mood - Patient Data Result Diagrams: 10/31/20 06:14 10/31/20 06:14 Sepsis Event Note - Evaluation Sepsis Screening Result: No Definite Risk - Focused Exam Vital Signs: Vital Signs Temp Pulse Resp BP Pulse Ox Pulse Ox 11/02/20 08:43 97.9 F 64 24 H 109/64 91 L 11/02/20 08:23 91 L 11/02/20 05:35 89 L 11/02/20 03:26 98.1 F 58 L 14 94 L - Problem List & Annotations (1) Acute respiratory failure due to COVID-19 SNOMED Code(s): 029033804 Code(s): U07.1 - COVID-19; J96.00 - ACUTE RESPIRATORY FAILURE, UNSP W HYPOXIA OR HYPERCAPNIA Status: Acute Current Visit: Yes (2) Bladder cancer SNOMED Code(s): 602386480 Code(s): C67.9 - MALIGNANT NEOPLASM OF BLADDER, UNSPECIFIED Status: Resolved Current Visit: Yes (3) Hypertension SNOMED Code(s): 37173613 Code(s): I10 - ESSENTIAL (PRIMARY) HYPERTENSION Status: Acute Current Visit: Yes - Problem List Review Problem List Initiated/Reviewed/Updated: Yes - My Orders Last 24 Hours: My Active Orders 11/01/20 21:00 Apixaban [Eliquis] 10 mg PO BID - Plan Plan:: 60-year-old with remote history of bladder cancer presents to the emergency department after a little over 1 week of symptoms consistent with COVID-19. Acute respiratory failure secondary to COVID-19 -Nasal cannula 6 L/minute -Diagnosed with COVID-19 on 10/14/2020 -Continue to encourage proning and use of the incentive spirometer. -Completed 5-day course of remdesivir -Completed 10-day course of dexamethasone -I-S, [place]cap[place], respiratory therapy consult, titrate FiO2 to keep SPO2 up to 92% -Blood cultures no growth -Baricitinib not started because he is already on 2 immunosuppressants, Imuran and dexamethasone, and I felt the risk of immunosuppression was greater than possible benefit at this time. Pulmonary embolism CTA of chest: 1. Findings compatible with bilateral pulmonary emboli. 2. Diffuse findings of Covid pneumonia -Unfortunately patient was initially not put on anticoagulation secondary to thrombocytopenia. He was started on Lovenox as soon as platelets increased above 100,000, but apparently that was not soon enough. -Eliquis Hypertension Blood pressures improved. -Hold his lisinopril Dermatomyositis -On Imuran Hyponatremia Resolved Thrombocytopenia -resolved VTE treated with Lovenox CODE STATUS full code
[2020-11-02] MEDS: Fish Oil/Omega-3 Fatty Acids 1 Gm Cap PO SCH (21:44)
[2020-11-02] MEDS: Melatonin 3 MG Tab PO PRN (21:45)
[2020-11-03] MEDS: guaiFENesin 600 MG Tab.ER PO SCH ×3 (08:08→21:13)
[2020-11-03] MEDS: Famotidine 20 MG Tab PO SCH ×2 (08:08→21:12)
[2020-11-03] MEDS: Apixaban 5 MG Tab PO SCH ×2 (08:08→21:13)
[2020-11-03] MEDS: Zinc Sulfate 220 MG Cap PO SCH (08:08)
[2020-11-03] MEDS: Benzonatate 100 MG Cap PO SCH ×3 (08:08→21:12)
[2020-11-03] MEDS: Albuterol/Ipratropium 3.0-0.5 MG/3 ML Neb Soln NEB PRN (08:23)
--- NOTE | 2020-11-03 17:17 | PCM.PN ---
- General Info Date of Service: 11/03/20 Admission Dx/Problem (Free Text): COVID-19 pneumonia Subjective Update: Patient was admitted to the hospital due to COVID-19 pneumonia. He had a positive Covid test on October 14, 2020 and first had the symptoms are about 10/16. Patient is a still feeling tired. Otherwise the patient is fine. Denies fever, chills, headache, dizziness, nausea, vomiting, or diarrhea. He is on 6 L via nasal cannula - Review of Systems Systems Review Comment:: Positive for 4 fatigue. All other systems were reviewed and negative. - Patient Data Vitals - Most Recent: Last Vital Signs Temp 36.9 C 11/03/20 15:06 Pulse 88 11/03/20 15:06 Resp 24 H 11/03/20 15:06 BP 110/67 11/03/20 15:06 Pulse Ox 94 L 11/03/20 15:06 Weight - Most Recent: 105.143 kg I&O - Last 24 Hours: Intake & Output 11/03/20 11/03/20 11/03/20 06:59 14:59 22:59 Intake Total 400 320 800 Output Total 975 600 Balance -575 320 200 Med Orders - Current: Current Medications Acetaminophen (Acetaminophen 325 Mg Tab) 650 mg PO Q4H PRN PRN Reason: Pain (Mild 1-3)/fever Last Admin: 10/29/20 15:57 Dose: 650 mg Documented by: Acetaminophen/Codeine Phosphate (Acetaminophen/Codeine 300-30 Mg Tab) 2 tab PO Q4H PRN PRN Reason: Cough Last Admin: 10/27/20 07:32 Dose: 2 tab Documented by: Al Hydroxide/Mg Hydroxide (Aluminum Hydroxide/Magnesium Hydroxide/Simethicone Susp 30 Ml Cup) 30 ml PO Q4H PRN PRN Reason: Heartburn Last Admin: 10/29/20 20:14 Dose: 30 ml Documented by: Albuterol (Albuterol 6.7 Gm Inhaler) 0 gm INH Q2H PRN PRN Reason: Shortness of Breath Last Admin: 11/02/20 08:23 Dose: 2 puff Documented by: Albuterol/Ipratropium (Albuterol/Ipratropium 3.0-0.5 Mg/3 Ml Neb Soln) 3 ml NEB Q4H PRN PRN Reason: Shortness Of Breath/wheezing Last Admin: 11/03/20 08:23 Dose: 3 ml Documented by: Apixaban (Apixaban 5 Mg Tab) 10 mg PO BID [facility] Last Admin: 11/03/20 08:08 Dose: 10 mg Documented by: Azathioprine (Azathioprine 50 Mg Tab) 100 mg PO DAILY [facility] Last Admin: 11/03/20 08:08 Dose: 100 mg Documented by: Benzonatate (Benzonatate 100 Mg Cap) 200 mg PO TID [facility] Last Admin: 11/03/20 14:11 Dose: 200 mg Documented by: Famotidine (Famotidine 20 Mg Tab) 20 mg PO BID [facility] Last Admin: 11/03/20 08:08 Dose: 20 mg Documented by: Fish Oil (Fish Oil/[place]-3 Fatty Acids 1 Gm Cap) 1 gm PO BEDTIME [facility] Last Admin: 11/02/20 21:44 Dose: 1 gm Documented by: Guaifenesin (Guaifenesin 600 Mg Tab.Er) 600 mg PO TID [facility] Last Admin: 11/03/20 14:11 Dose: 600 mg Documented by: Melatonin (Melatonin 3 Mg Tab) 6 mg PO BEDTIME PRN PRN Reason: Insomnia Last Admin: 11/02/20 21:45 Dose: 6 mg Documented by: Ondansetron HCl (Ondansetron 4 Mg/2 Ml Sdv) 4 mg IV Q6H PRN PRN Reason: Nausea/Vomiting Last Admin: 10/25/20 10:22 Dose: 4 mg Documented by: Zinc Sulfate (Zinc Sulfate 220 Mg Cap) 220 mg PO DAILY [facility] Last Admin: 11/03/20 08:08 Dose: 220 mg Documented by: Discontinued Medications Albuterol (Albuterol 6.7 Gm Inhaler) 2 gm INH Q2H PRN PRN Reason: Shortness of Breath Azathioprine (Azathioprine 50 Mg Tab) 50 mg PO BID [facility] Last Admin: 10/23/20 10:24 Dose: 50 mg Documented by: Azathioprine (Azathioprine 50 Mg Tab) 50 mg PO ONETIME ONE Stop: 10/23/20 10:46 Last Admin: 10/23/20 11:14 Dose: 50 mg Documented by: Azathioprine (Azathioprine 50 Mg Tab) 100 mg PO BID [facility] Last Admin: 10/23/20 21:24 Dose: Not Given Documented by: Dexamethasone (Dexamethasone 10 Mg/Ml Sdv) 6 mg IVPUSH ONETIME STA Stop: 10/22/20 20:38 Last Admin: 10/22/20 21:19 Dose: 6 mg Documented by: Dexamethasone (Dexamethasone 10 Mg/Ml Sdv) 6 mg IVPUSH Q24H [facility] Stop: 10/31/20 21:01 Dexamethasone (Dexamethasone 4 Mg Tab) 6 mg PO DAILY [facility] Stop: 10/31/20 09:01 Last Admin: 10/31/20 09:56 Dose: 6 mg Documented by: Enoxaparin Sodium (Enoxaparin 40 Mg/0.4 Ml Syringe) 40 mg SUBCUT DAILY [facility] Enoxaparin Sodium (Enoxaparin 120 Mg/0.8 Ml Syringe) 110 mg SUBCUT Q12H [facility] Last Admin: 10/25/20 08:25 Dose: 110 mg Documented by: Enoxaparin Sodium (Enoxaparin 120 Mg/0.8 Ml Syringe) 110 mg SUBCUT Q12H [facility] Last Admin: 11/01/20 09:25 Dose: 110 mg Documented by: Remdesivir 200 mg/ Sodium (Chloride) 250 mls @ 250 mls/hr IV ONETIME ONE Stop: 10/22/20 20:38 Last Admin: 10/22/20 21:19 Dose: 250 mls/hr Documented by: Remdesivir 100 mg/ Sodium (Chloride) 100 mls @ 100 mls/hr IV Q24H [facility] Stop: 10/26/20 22:59 Last Admin: 10/26/20 21:19 Dose: 100 mls/hr Documented by: Sodium Chloride (Normal Saline) 100 mls @ 60 mls/hr IV ASDIRECTED [facility] Stop: 10/25/20 10:30 Last Admin: 10/25/20 10:49 Dose: 60 mls/hr Documented by: Iopamidol (Iopamidol 755 Mg/Ml 100 Ml Bottle) 100 ml IVPUSH ONETIME ONE Stop: 10/25/20 08:03 Last Admin: 10/25/20 10:49 Dose: 100 ml Documented by: Lisinopril (Lisinopril 20 Mg Tab) 20 mg PO DAILY [facility] Last Admin: 10/25/20 08:27 Dose: Not Given Documented by: Lorazepam (Lorazepam 1 Mg Tab) 1 mg PO ONETIME ONE Stop: 10/25/20 09:22 Last Admin: 10/25/20 09:37 Dose: 1 mg Documented by: Lorazepam (Lorazepam 2 Mg/Ml Sdv) 0.5 mg IVPUSH ONETIME PRN PRN Reason: SEE COMMENTS Stop: 10/25/20 18:00 Non-Formulary Medication (Glucos Sul 2kcl/Msm/Chond/C/Mn [Glucosamine Chondroitin Cap]) 2 each PO BEDTIME [facility] Potassium Chloride (Potassium Chloride 20 Meq Tab.Er) 40 meq PO ONETIME ONE Stop: 10/25/20 09:19 Last Admin: 10/25/20 09:37 Dose: 40 meq Documented by: Sodium Chloride (Sodium Chloride 0.9% 10 Ml Syringe) 10 ml FLUSH ONETIME ONE Stop: 10/25/20 08:03 Last Admin: 10/25/20 10:49 Dose: 10 ml Documented by: Sodium Phosphate (Phosphorus #1 250 Mg Tab) 250 mg PO DAILY [facility] Last Admin: 10/24/20 08:25 Dose: 250 mg Documented by: - Exam Physical Findings Comments:: General: Alert, Oriented HEENT: Pupils Equal, Mucous Membr. Moist/[place] Neck: Supple Lungs: Normal Respiratory Effort, Crackles (Bibasilar) Cardiovascular: Regular Rate, Regular Rhythm GI/Abdominal Exam: Normal Bowel Sounds, Soft, Non-Tender, No Distention Extremities: Normal Inspection, Normal Range of Motion, Non-Tender, No Pedal Edema Skin: Warm, Dry, Intact Psy/Mental Status: Alert, Normal Affect, Normal Mood - Patient Data Result Diagrams: 10/31/20 06:14 10/31/20 06:14 Sepsis Event Note - Evaluation Sepsis Screening Result: No Definite Risk - Focused Exam Vital Signs: Vital Signs Temp Pulse Resp BP Pulse Ox Pulse Ox 11/03/20 15:06 36.9 C 88 24 H 110/67 94 L 11/03/20 08:24 92 L 11/03/20 08:17 36.7 C 74 26 H 100/66 92 L 11/03/20 05:14 36.8 C 62 16 90 L - Problem List Review Problem List Initiated/Reviewed/Updated: Yes - My Orders Last 24 Hours: My Active Orders 11/04/20 05:00 C-REACTIVE PROTEIN [CHEM] Routine CBC WITH AUTO DIFF [HEME] Routine CMP [COMPREHENSIVE METABOLIC PN,CMP] [CHEM] Routine MAGNESIUM [CHEM] Routine - Plan Plan:: 60-year-old with remote history of bladder cancer presents to the emergency department after a little over 1 week of symptoms consistent with COVID-19. Acute respiratory failure secondary to COVID-19 -Nasal cannula 6 L/minute -Diagnosed with COVID-19 on 10/14/2020, symptoms started on about 10/16 -Continue to encourage proning and use of the incentive spirometer. -Completed 5-day course of remdesivir -Completed 10-day course of dexamethasone -I-[place], respiratory therapy consult, titrate FiO2 to keep SPO2 up to 92% -Blood cultures no growth -Baricitinib not started because he is already on 2 immunosuppressants, Imuran and dexamethasone, and I felt the risk of immunosuppression was greater than possible benefit at this time. Pulmonary embolism CTA of chest: 1. Findings compatible with bilateral pulmonary emboli. 2. Diffuse findings of Covid pneumonia -Unfortunately patient was initially not put on anticoagulation secondary to thrombocytopenia. He was started on Lovenox as soon as platelets increased above 100,000. -Eliquis 10 mg twice daily (since November 01) Hypertension Blood pressures is not high -lisinopril is on hold Dermatomyositis -On Imuran Hyponatremia Resolved Thrombocytopenia -resolved VTE treated with Eliquis CODE STATUS full code Disposition: 1-2 more days since the patient still on 6 L
[2020-11-03] MEDS: Fish Oil/Omega-3 Fatty Acids 1 Gm Cap PO SCH (21:12)
[2020-11-03] MEDS: Melatonin 3 MG Tab PO PRN (21:13)
[2020-11-04] MEDS: Zinc Sulfate 220 MG Cap PO SCH (08:06)
[2020-11-04] MEDS: guaiFENesin 600 MG Tab.ER PO SCH ×3 (08:06→20:34)
[2020-11-04] MEDS: Benzonatate 100 MG Cap PO SCH ×3 (08:06→20:33)
[2020-11-04] MEDS: Famotidine 20 MG Tab PO SCH ×2 (08:06→20:33)
[2020-11-04] MEDS: Apixaban 5 MG Tab PO SCH ×2 (08:06→20:34)
[2020-11-04] MEDS: Albuterol 6.7 GM Inhaler INH PRN (08:44)
--- NOTE | 2020-11-04 13:48 | PCM.PN ---
- General Info Date of Service: 11/04/20 Admission Dx/Problem (Free Text): COVID-19 pneumonia Subjective Update: Patient was admitted to the hospital due to COVID-19 pneumonia. He had a positive Covid test on October 14, 2020 and first had the symptoms are about 10/16. Patient is a still feeling tired. patient is Otherwise fine. Denies fever, chills, headache, dizziness, nausea, vomiting, or diarrhea. He is on 4 L via nasal cannula today, but this morning he had one episode of desat, 89% on 4L. - Review of Systems Systems Review Comment:: Positive for fatigue. All other systems were reviewed and negative. - Patient Data Vitals - Most Recent: Last Vital Signs Temp 36.2 C 11/04/20 08:29 Pulse 73 11/04/20 08:29 Resp 20 11/04/20 08:29 BP 111/74 11/04/20 08:29 Pulse Ox 94 L 11/04/20 08:46 Weight - Most Recent: 105.732 kg I&O - Last 24 Hours: Intake & Output 11/03/20 11/04/20 11/04/20 22:59 06:59 14:59 Intake Total 1720 400 240 Output Total 600 850 Balance 1120 -450 240 Lab Results Last 24 Hours: Laboratory Results - last 24 hr 11/04/20 11/04/20 Range/Units 05:58 05:58 WBC 6.31 (4.23-9.07) K/mm3 RBC 4.61 L (4.63-6.08) M/mm3 Hgb 15.1 (13.7-17.5) gm/dl Hct 46.6 (40.1-51.0) % MCV 101.1 H (79.0-92.2) fl MCH 32.8 H (25.7-32.2) pg MCHC 32.4 (32.2-35.5) g/dl RDW Std Deviation 47.1 H (35.1-43.9) fL Plt Count 108 L (163-337) K/mm3 MPV 11.0 (9.4-12.3) fl Neut % (Auto) 74.4 H (34.0-67.9) % Lymph % (Auto) 14.1 L (21.8-53.1) % [place] % (Auto) 8.6 (5.3-12.2) % Eos % (Auto) 1.4 (0.8-7.0) Baso % (Auto) 0.2 (0.1-1.2) % Neut # (Auto) 4.70 (1.78-5.38) K/mm3 Lymph # (Auto) 0.89 L (1.32-3.57) K/mm3 [place] # (Auto) 0.54 (0.30-0.82) K/mm3 Eos # (Auto) 0.09 (0.04-0.54) K/mm3 Baso # (Auto) 0.01 (0.01-0.08) K/mm3 Sodium 136 (136-145) mEq/L Potassium 4.1 (3.5-5.1) mEq/L Chloride 102 (98-107) mEq/L Carbon Dioxide 28 (21-32) mEq/L Anion Gap 10.1 (5-15) BUN 22 H (7-18) mg/dL Creatinine 0.8 (0.7-1.3) mg/dL Est Cr Clr Drug Dosing 112.36 mL/min Estimated GFR (MDRD) > 60 (>60) mL/min BUN/Creatinine Ratio 27.5 H (14-18) Glucose 113 H (70-99) mg/dL Calcium 7.9 L (8.5-10.1) mg/dL Magnesium 2.1 (1.8-2.4) mg/dL Total Bilirubin 0.8 (0.2-1.0) mg/dL AST 15 (15-37) U/L ALT 43 (16-63) U/L Alkaline Phosphatase 53 (46-116) U/L C-Reactive Protein 1.5 H* (<1.0) mg/dL Total Protein 5.9 L (6.4-8.2) g/dl Albumin 2.4 L (3.4-5.0) g/dl Globulin 3.5 gm/dL Albumin/Globulin Ratio 0.7 L (1-2) Med Orders - Current: Current Medications Acetaminophen (Acetaminophen 325 Mg Tab) 650 mg PO Q4H PRN PRN Reason: Pain (Mild 1-3)/fever Last Admin: 10/29/20 15:57 Dose: 650 mg Documented by: Acetaminophen/Codeine Phosphate (Acetaminophen/Codeine 300-30 Mg Tab) 2 tab PO Q4H PRN PRN Reason: Cough Last Admin: 10/27/20 07:32 Dose: 2 tab Documented by: Al Hydroxide/Mg Hydroxide (Aluminum Hydroxide/Magnesium Hydroxide/Simethicone Susp 30 Ml Cup) 30 ml PO Q4H PRN PRN Reason: Heartburn Last Admin: 10/29/20 20:14 Dose: 30 ml Documented by: Albuterol (Albuterol 6.7 Gm Inhaler) 0 gm INH Q2H PRN PRN Reason: Shortness of Breath Last Admin: 11/04/20 08:44 Dose: 2 puff Documented by: Albuterol/Ipratropium (Albuterol/Ipratropium 3.0-0.5 Mg/3 Ml Neb Soln) 3 ml NEB Q4H PRN PRN Reason: Shortness Of Breath/wheezing Last Admin: 11/03/20 08:23 Dose: 3 ml Documented by: Apixaban (Apixaban 5 Mg Tab) 5 mg PO BID [facility] Azathioprine (Azathioprine 50 Mg Tab) 100 mg PO DAILY [facility] Last Admin: 11/04/20 08:07 Dose: 100 mg Documented by: Benzonatate (Benzonatate 100 Mg Cap) 200 mg PO TID [facility] Last Admin: 11/04/20 08:06 Dose: 200 mg Documented by: Famotidine (Famotidine 20 Mg Tab) 20 mg PO BID [facility] Last Admin: 11/04/20 08:06 Dose: 20 mg Documented by: Fish Oil (Fish Oil/[place]-3 Fatty Acids 1 Gm Cap) 1 gm PO BEDTIME [facility] Last Admin: 11/03/20 21:12 Dose: 1 gm Documented by: Guaifenesin (Guaifenesin 600 Mg Tab.Er) 600 mg PO TID [facility] Last Admin: 11/04/20 08:06 Dose: 600 mg Documented by: Melatonin (Melatonin 3 Mg Tab) 6 mg PO BEDTIME PRN PRN Reason: Insomnia Last Admin: 11/03/20 21:13 Dose: 6 mg Documented by: Ondansetron HCl (Ondansetron 4 Mg/2 Ml Sdv) 4 mg IV Q6H PRN PRN Reason: Nausea/Vomiting Last Admin: 10/25/20 10:22 Dose: 4 mg Documented by: Zinc Sulfate (Zinc Sulfate 220 Mg Cap) 220 mg PO DAILY [facility] Last Admin: 11/04/20 08:06 Dose: 220 mg Documented by: Discontinued Medications Albuterol (Albuterol 6.7 Gm Inhaler) 2 gm INH Q2H PRN PRN Reason: Shortness of Breath Apixaban (Apixaban 5 Mg Tab) 10 mg PO BID [facility] Last Admin: 11/04/20 08:06 Dose: 10 mg Documented by: Azathioprine (Azathioprine 50 Mg Tab) 50 mg PO BID [facility] Last Admin: 10/23/20 10:24 Dose: 50 mg Documented by: Azathioprine (Azathioprine 50 Mg Tab) 50 mg PO ONETIME ONE Stop: 10/23/20 10:46 Last Admin: 10/23/20 11:14 Dose: 50 mg Documented by: Azathioprine (Azathioprine 50 Mg Tab) 100 mg PO BID [facility] Last Admin: 10/23/20 21:24 Dose: Not Given Documented by: Dexamethasone (Dexamethasone 10 Mg/Ml Sdv) 6 mg IVPUSH ONETIME STA Stop: 10/22/20 20:38 Last Admin: 10/22/20 21:19 Dose: 6 mg Documented by: Dexamethasone (Dexamethasone 10 Mg/Ml Sdv) 6 mg IVPUSH Q24H [facility] Stop: 10/31/20 21:01 Dexamethasone (Dexamethasone 4 Mg Tab) 6 mg PO DAILY [facility] Stop: 10/31/20 09:01 Last Admin: 10/31/20 09:56 Dose: 6 mg Documented by: Enoxaparin Sodium (Enoxaparin 40 Mg/0.4 Ml Syringe) 40 mg SUBCUT DAILY [facility] Enoxaparin Sodium (Enoxaparin 120 Mg/0.8 Ml Syringe) 110 mg SUBCUT Q12H [facility] Last Admin: 10/25/20 08:25 Dose: 110 mg Documented by: Enoxaparin Sodium (Enoxaparin 120 Mg/0.8 Ml Syringe) 110 mg SUBCUT Q12H [facility] Last Admin: 11/01/20 09:25 Dose: 110 mg Documented by: Remdesivir 200 mg/ Sodium (Chloride) 250 mls @ 250 mls/hr IV ONETIME ONE Stop: 10/22/20 20:38 Last Admin: 10/22/20 21:19 Dose: 250 mls/hr Documented by: Remdesivir 100 mg/ Sodium (Chloride) 100 mls @ 100 mls/hr IV Q24H [facility] Stop: 10/26/20 22:59 Last Admin: 10/26/20 21:19 Dose: 100 mls/hr Documented by: Sodium Chloride (Normal Saline) 100 mls @ 60 mls/hr IV ASDIRECTED [facility] Stop: 10/25/20 10:30 Last Admin: 10/25/20 10:49 Dose: 60 mls/hr Documented by: Iopamidol (Iopamidol 755 Mg/Ml 100 Ml Bottle) 100 ml IVPUSH ONETIME ONE Stop: 10/25/20 08:03 Last Admin: 10/25/20 10:49 Dose: 100 ml Documented by: Lisinopril (Lisinopril 20 Mg Tab) 20 mg PO DAILY [facility] Last Admin: 10/25/20 08:27 Dose: Not Given Documented by: Lorazepam (Lorazepam 1 Mg Tab) 1 mg PO ONETIME ONE Stop: 10/25/20 09:22 Last Admin: 10/25/20 09:37 Dose: 1 mg Documented by: Lorazepam (Lorazepam 2 Mg/Ml Sdv) 0.5 mg IVPUSH ONETIME PRN PRN Reason: SEE COMMENTS Stop: 10/25/20 18:00 Non-Formulary Medication (Glucos Sul 2kcl/Msm/Chond/C/Mn [Glucosamine Chondroitin Cap]) 2 each PO BEDTIME [facility] Potassium Chloride (Potassium Chloride 20 Meq Tab.Er) 40 meq PO ONETIME ONE Stop: 10/25/20 09:19 Last Admin: 10/25/20 09:37 Dose: 40 meq Documented by: Sodium Chloride (Sodium Chloride 0.9% 10 Ml Syringe) 10 ml FLUSH ONETIME ONE Stop: 10/25/20 08:03 Last Admin: 10/25/20 10:49 Dose: 10 ml Documented by: Sodium Phosphate (Phosphorus #1 250 Mg Tab) 250 mg PO DAILY [facility] Last Admin: 10/24/20 08:25 Dose: 250 mg Documented by: - Exam Physical Findings Comments:: General: Alert, Oriented HEENT: Pupils Equal, Mucous Membr. Moist/[place]: Supple Lungs: Normal Respiratory Effort, Crackles (Bibasilar) Cardiovascular: Regular Rate, Regular Rhythm GI/Abdominal Exam: Normal Bowel Sounds, Soft, Non-Tender, No Distention Extremities: Normal Inspection, Normal Range of Motion, Non-Tender, No Pedal Edema Skin: Warm, Dry, Intact Psy/Mental Status: Alert, Normal Affect, Normal Mood - Patient Data Lab Results Last 24 hrs: Laboratory Results - last 24 hr 11/04/20 11/04/20 Range/Units 05:58 05:58 WBC 6.31 (4.23-9.07) K/mm3 RBC 4.61 L (4.63-6.08) M/mm3 Hgb 15.1 (13.7-17.5) gm/dl Hct 46.6 (40.1-51.0) % MCV 101.1 H (79.0-92.2) fl MCH 32.8 H (25.7-32.2) pg MCHC 32.4 (32.2-35.5) g/dl RDW Std Deviation 47.1 H (35.1-43.9) fL Plt Count 108 L (163-337) K/mm3 MPV 11.0 (9.4-12.3) fl Neut % (Auto) 74.4 H (34.0-67.9) % Lymph % (Auto) 14.1 L (21.8-53.1) % [place] % (Auto) 8.6 (5.3-12.2) % Eos % (Auto) 1.4 (0.8-7.0) Baso % (Auto) 0.2 (0.1-1.2) % Neut # (Auto) 4.70 (1.78-5.38) K/mm3 Lymph # (Auto) 0.89 L (1.32-3.57) K/mm3 [place] # (Auto) 0.54 (0.30-0.82) K/mm3 Eos # (Auto) 0.09 (0.04-0.54) K/mm3 Baso # (Auto) 0.01 (0.01-0.08) K/mm3 Sodium 136 (136-145) mEq/L Potassium 4.1 (3.5-5.1) mEq/L Chloride 102 (98-107) mEq/L Carbon Dioxide 28 (21-32) mEq/L Anion Gap 10.1 (5-15) BUN 22 H (7-18) mg/dL Creatinine 0.8 (0.7-1.3) mg/dL Est Cr Clr Drug Dosing 112.36 mL/min Estimated GFR (MDRD) > 60 (>60) mL/min BUN/Creatinine Ratio 27.5 H (14-18) Glucose 113 H (70-99) mg/dL Calcium 7.9 L (8.5-10.1) mg/dL Magnesium 2.1 (1.8-2.4) mg/dL Total Bilirubin 0.8 (0.2-1.0) mg/dL AST 15 (15-37) U/L ALT 43 (16-63) U/L Alkaline Phosphatase 53 (46-116) U/L C-Reactive Protein 1.5 H* (<1.0) mg/dL Total Protein 5.9 L (6.4-8.2) g/dl Albumin 2.4 L (3.4-5.0) g/dl Globulin 3.5 gm/dL Albumin/Globulin Ratio 0.7 L (1-2) Result Diagrams: 11/04/20 05:58 11/04/20 05:58 Sepsis Event Note - Evaluation Sepsis Screening Result: No Definite Risk - Focused Exam Vital Signs: Vital Signs Temp Pulse Resp BP BP Pulse Ox Pulse Ox 11/04/20 08:46 94 L 11/04/20 08:29 36.2 C 73 20 111/74 89 L 11/04/20 04:12 36.2 C 59 L 16 93 L 11/04/20 03:00 106/54 L - Problem List Review Problem List Initiated/Reviewed/Updated: Yes - My Orders Last 24 Hours: My Active Orders 11/04/20 21:00 Apixaban [Eliquis] 5 mg PO BID - Plan Plan:: 60-year-old with remote history of bladder cancer presents to the emergency department after a little over 1 week of symptoms consistent with COVID-19. Acute respiratory failure secondary to COVID-19 -Nasal cannula 4 L/minute -Diagnosed with COVID-19 on 10/14/2020, symptoms started on about 10/16 -Continue to encourage proning and use of the incentive spirometer. -Completed 5-day course of remdesivir -Completed 10-day course of dexamethasone -I-S, Acapella, respiratory therapy consult, titrate FiO2 to keep SPO2 up to 92% -Blood cultures no growth -Baricitinib not started because he is already on 2 immunosuppressants, Imuran and dexamethasone, and I felt the risk of immunosuppression was greater than possible benefit at this time. Pulmonary embolism CTA of chest: 1. Findings compatible with bilateral pulmonary emboli. 2. Diffuse findings of Covid pneumonia -Unfortunately patient was initially not put on anticoagulation secondary to thrombocytopenia. -Eliquis 5 mg twice daily (since November 01) Hypertension Blood pressures is not high -lisinopril is on hold Dermatomyositis -On Imuran Hyponatremia Resolved Thrombocytopenia 108 today No evidence of bleeding Continue Eliquis Repeat CBC in am VTE treated with Eliquis CODE STATUS full code Disposition: 1-2 more days since the patient still on 4 L
[2020-11-04] MEDS: Fish Oil/Omega-3 Fatty Acids 1 Gm Cap PO SCH (20:34)
[2020-11-04] MEDS: Acetaminophen/Codeine 300-30 MG Tab PO PRN (20:39)
[2020-11-05 08:36] VITALS: BP 123/60; PULSE 71
[2020-11-05] MEDS: Apixaban 5 MG Tab PO SCH (08:41)
[2020-11-05] MEDS: Famotidine 20 MG Tab PO SCH (08:41)
[2020-11-05] MEDS: guaiFENesin 600 MG Tab.ER PO SCH (08:41)
[2020-11-05] MEDS: Benzonatate 100 MG Cap PO SCH (08:41)
[2020-11-05] MEDS: Zinc Sulfate 220 MG Cap PO SCH (08:42)
--- NOTE | 2020-11-05 11:32 | PCM.DCSUM1 ---
Discharge Summary - Hospital Course Free Text/Narrative:: 60-year-old with remote history of bladder cancer presents to the emergency department after a little over 1 week of symptoms consistent with COVID-19. Acute respiratory failure secondary to COVID-19 -Nasal cannula 1-2 L/minute -Diagnosed with COVID-19 on 10/14/2020, symptoms started on about 10/16 -Continue to encourage proning and use of the incentive spirometer. -Completed 5-day course of remdesivir -Completed 10-day course of dexamethasone -I-S, Acapella, respiratory therapy consult, titrate FiO2 to keep SPO2 up to 92% -Blood cultures no growth -Baricitinib not started because he is already on 2 immunosuppressants, Imuran and dexamethasone, and I felt the risk of immunosuppression was greater than possible benefit at this time. Pulmonary embolism CTA of chest: Very small fillling defect within the distal segmental branch within the right lower lung compatible with a very minimal thrombus. Pulmonary embolism more easily seen within the distal right main pulmonary artery extending into the segmental branch within the right upper lung and l we have been the segmental branch of the right lower lung. Additional pulmonary emboli are seen within the segmental and subsegmental branch within the left lower lung. -Unfortunately patient was initially not put on anticoagulation secondary to thrombocytopenia. -Eliquis 5 mg twice daily (since November 01) Hypertension Blood pressures is not high -lisinopril is on hold Dermatomyositis -On Imuran Hyponatremia Resolved Thrombocytopenia 100 today No evidence of bleeding Since the patient has bilateral PE, I would like to continue anticoagulation with Eliquis. I discussed with the patient the risk and benefit of anticoagulation. He has a higher risk for bleeding since he has a thrombocytopenia. His platelets are 100 today and he does not have a bleeding now. Patient agreed to continue Eliquis. I advised the patient to see PCP in 3 days and repeat CBC and other tests in 3 days. Stop Eliquis and go to the ER immediately if bleeding occurs at any time. He promised me to do so. Follow with the PCP to make sure platelets back to normal. Today patient does not have any complaints. Denies headache, dizziness, chest pain, nausea, vomiting, abdominal pain, or diarrhea. Patient is on 1 to 2 L. Home medication lisinopril is on hold because his blood pressure is not high. Patient will be discharged home with home oxygen to follow with PCP in 3 days. Repeat a CBC, CMP and electrolytes in 3 days. Continue to quarantine himself at home. Stop Eliquis and go to the ER immediately if bleeding occurs at any time. Do not drive until approval from MD. Call PCP for medical issues. HPI Initial Comments: as per Dr. Harmon on 10/23/2020, 60-year-old male presents to the emergency department with decreasing oxygen saturation. Patient was seen at the walk-in clinic today and told his oxygen saturations were low in the 80s, given Regeneron, and told to follow his oxygen saturations. When patient was unable to keep his oxygen saturations above 80% he presented to the emergency department. Patient first had symptoms proximally 1 week ago and was diagnosed with COVID-19 on 10/14/2020. Initially he thought he had a sinus infection that worsened to a nonproductive cough, dyspnea, fever, nausea, vomiting, and watery diarrhea. When he presented to the emergency department his oxygen saturations were in the upper 60s to low 70s. He was placed on 6 L of oxygen via nasal cannula with oxygen saturations of 90 to 92%. Patient is able to hold on a conversation but became dyspneic with short sentences. In the emergency department patient was found to be afebrile with tachypnea. Blood pressure was 123/57 with a heart rate of 89. Oxygen saturations as above. Pertinent positives on laboratory studies were D-dimer of 0.63, sodium of 131, CRP 8.6, albumin 3.0, and proBNP of 249. Pertinent negatives included lactic acid of 1.3, troponin I less than 0.017. ABG pH 7.48, PCO2 30.3, PO2 68, bicarb 22.1, on 6 L nasal cannula. EKG showed normal sinus rhythm with late transition, heart rate of 87. Chest x-ray showed diffuse increased lung markings consistent with diffuse groundglass COVID-19 pneumonia. Diagnosis: Stroke: No - Discharge Data Discharge Date: 11/05/20 Discharge Disposition: Home, Self-Care 01 Condition: Good - Referral to Home Health Primary Care Physician: Yrn Angulo PA-C - Patient Summary/Data Consults: Consultations 10/22/20 21:46 Respiratory Care Assess and Treatment [CONS] Routine 11/01/20 11:27 Consult to Physical Therapy [PT Evaluation and Treatment] [CONS] Routine Recommended Follow-up Testing/Procedures: follow with PCP in 3 days. Repeat a CBC, CMP and electrolytes in 3 days. Continue to quarantine himself at home. Stop Eliquis and go to the ER immediately if bleeding occurs at any time. Do not drive until approval from MD. Call PCP for medical issues. - Patient Instructions Diet: Regular Diet as Tolerated Activity: As Tolerated - Discharge Plan *PRESCRIPTION DRUG MONITORING PROGRAM REVIEWED*: Not Applicable *COPY OF PRESCRIPTION DRUG MONITORING REPORT IN PATIENT GILBERTO: Not Applicable Prescriptions/Med Rec: Apixaban [Eliquis] 5 mg PO BID #60 tablet Albuterol [Proventil HFA] 1 puff INH Q4H PRN #1 box PRN Reason: Shortness Of Breath Home Medications: Home Meds azaTHIOprine [Azathioprine] 100 mg PO BID 12/16/17 [History] Albuterol [Proventil HFA] 1 puff INH Q4H PRN #1 box 11/05/20 [Rx] Apixaban [Eliquis] 5 mg PO BID #60 tablet 11/05/20 [Rx] Oxygen Therapy Mode: Nasal Cannula Oxygen Flow Rate (L/min): 3 Maintain SpO2% greater than: 92 Patient Handouts: COVID-19 Frequently Asked Questions, COVID-19, Home Oxygen Use, Adult, Sepsis, Self Care, Adult Forms: ED Department Discharge Referrals: Yrn Angulo PA-C [Primary Care Provider] - see, pcp in 3 days [Other] - Discharge Summary/Plan Comment DC Time >30 min.: Yes Total # of Minutes for Discharge Time: 90mins - General Info Date of Service: 11/05/20 Admission Dx/Problem (Free Text: COVID-19 pneumonia Subjective Update: Patient was admitted to the hospital due to COVID-19 pneumonia. He had a positive Covid test on October 14, 2020 and first had the symptoms are about 10/16. Patient is feeling fine. Denies fever, chills, headache, dizziness, nausea, vomiting, or diarrhea. He is on 1-2 L via nasal cannula. - Review of Systems General: Reports: No Symptoms HEENT: Reports: No Symptoms Pulmonary: Reports: No Symptoms Cardiovascular: Reports: No Symptoms Gastrointestinal: Reports: No Symptoms Genitourinary: Reports: No Symptoms Musculoskeletal: Reports: No Symptoms Skin: Reports: No Symptoms Neurological: Reports: No Symptoms Psychiatric: Reports: No Symptoms - Patient Data Vitals - Most Recent: Last Vital Signs Temp 36.2 C 11/05/20 08:26 Pulse 71 11/05/20 08:26 Resp 20 11/05/20 08:26 BP 123/60 11/05/20 08:26 Pulse Ox 92 L 11/05/20 08:26 Weight - Most Recent: 105.233 kg I&O - Last 24 hours: Intake & Output 11/04/20 11/05/20 11/05/20 22:59 06:59 14:59 Intake Total 1040 800 560 Output Total 650 Balance 1040 150 560 Lab Results - Last 24 hrs: Laboratory Results - last 24 hr 11/05/20 11/05/20 Range/Units 04:26 04:26 WBC 6.08 (4.23-9.07) K/mm3 RBC 4.31 L (4.63-6.08) M/mm3 Hgb 14.4 (13.7-17.5) gm/dl Hct 44.0 (40.1-51.0) % MCV 102.1 H (79.0-92.2) fl MCH 33.4 H (25.7-32.2) pg MCHC 32.7 (32.2-35.5) g/dl RDW Std Deviation 46.9 H (35.1-43.9) fL Plt Count 100 L (163-337) K/mm3 MPV 10.8 (9.4-12.3) fl Neut % (Auto) 71.8 H (34.0-67.9) % Lymph % (Auto) 16.1 L (21.8-53.1) % [place] % (Auto) 8.9 (5.3-12.2) % Eos % (Auto) 1.5 (0.8-7.0) Baso % (Auto) 0.2 (0.1-1.2) % Neut # (Auto) 4.37 (1.78-5.38) K/mm3 Lymph # (Auto) 0.98 L (1.32-3.57) K/mm3 [place] # (Auto) 0.54 (0.30-0.82) K/mm3 Eos # (Auto) 0.09 (0.04-0.54) K/mm3 Baso # (Auto) 0.01 (0.01-0.08) K/mm3 Sodium 136 (136-145) mEq/L Potassium 4.1 (3.5-5.1) mEq/L Chloride 103 (98-107) mEq/L Carbon Dioxide 32 (21-32) mEq/L Anion Gap 5.1 (5-15) BUN 25 H (7-18) mg/dL Creatinine 0.9 (0.7-1.3) mg/dL Est Cr Clr Drug Dosing 99.88 mL/min Estimated GFR (MDRD) > 60 (>60) mL/min BUN/Creatinine Ratio 27.8 H (14-18) Glucose 104 H (70-99) mg/dL Calcium 8.0 L (8.5-10.1) mg/dL Total Bilirubin 0.9 (0.2-1.0) mg/dL AST 13 L (15-37) U/L ALT 39 (16-63) U/L Alkaline Phosphatase 52 (46-116) U/L C-Reactive Protein 1.2 H* (<1.0) mg/dL Total Protein 6.0 L (6.4-8.2) g/dl Albumin 2.4 L (3.4-5.0) g/dl Globulin 3.6 gm/dL Albumin/Globulin Ratio 0.7 L (1-2) Med Orders - Current: Current Medications Acetaminophen (Acetaminophen 325 Mg Tab) 650 mg PO Q4H PRN PRN Reason: Pain (Mild 1-3)/fever Last Admin: 10/29/20 15:57 Dose: 650 mg Documented by: Acetaminophen/Codeine Phosphate (Acetaminophen/Codeine 300-30 Mg Tab) 2 tab PO Q4H PRN PRN Reason: Cough Last Admin: 11/04/20 20:39 Dose: 2 tab Documented by: Al Hydroxide/Mg Hydroxide (Aluminum Hydroxide/Magnesium Hydroxide/Simethicone Susp 30 Ml Cup) 30 ml PO Q4H PRN PRN Reason: Heartburn Last Admin: 10/29/20 20:14 Dose: 30 ml Documented by: Albuterol (Albuterol 6.7 Gm Inhaler) 0 gm INH Q2H PRN PRN Reason: Shortness of Breath Last Admin: 11/04/20 08:44 Dose: 2 puff Documented by: Albuterol/Ipratropium (Albuterol/Ipratropium 3.0-0.5 Mg/3 Ml Neb Soln) 3 ml NEB Q4H PRN PRN Reason: Shortness Of Breath/wheezing Last Admin: 11/03/20 08:23 Dose: 3 ml Documented by: Apixaban (Apixaban 5 Mg Tab) 5 mg PO BID [facility] Last Admin: 11/05/20 08:41 Dose: 5 mg Documented by: Azathioprine (Azathioprine 50 Mg Tab) 100 mg PO DAILY [facility] Last Admin: 11/05/20 08:41 Dose: 100 mg Documented by: Benzonatate (Benzonatate 100 Mg Cap) 200 mg PO TID [facility] Last Admin: 11/05/20 08:41 Dose: 200 mg Documented by: Famotidine (Famotidine 20 Mg Tab) 20 mg PO BID [facility] Last Admin: 11/05/20 08:41 Dose: 20 mg Documented by: Fish Oil (Fish Oil/[place]-3 Fatty Acids 1 Gm Cap) 1 gm PO BEDTIME [facility] Last Admin: 11/04/20 20:34 Dose: 1 gm Documented by: Guaifenesin (Guaifenesin 600 Mg Tab.Er) 600 mg PO TID [facility] Last Admin: 11/05/20 08:41 Dose: 600 mg Documented by: Melatonin (Melatonin 3 Mg Tab) 6 mg PO BEDTIME PRN PRN Reason: Insomnia Last Admin: 11/03/20 21:13 Dose: 6 mg Documented by: Ondansetron HCl (Ondansetron 4 Mg/2 Ml Sdv) 4 mg IV Q6H PRN PRN Reason: Nausea/Vomiting Last Admin: 10/25/20 10:22 Dose: 4 mg Documented by: Zinc Sulfate (Zinc Sulfate 220 Mg Cap) 220 mg PO DAILY [facility] Last Admin: 11/05/20 08:42 Dose: 220 mg Documented by: Discontinued Medications Albuterol (Albuterol 6.7 Gm Inhaler) 2 gm INH Q2H PRN PRN Reason: Shortness of Breath Apixaban (Apixaban 5 Mg Tab) 10 mg PO BID [facility] Last Admin: 11/04/20 08:06 Dose: 10 mg Documented by: Azathioprine (Azathioprine 50 Mg Tab) 50 mg PO BID [facility] Last Admin: 10/23/20 10:24 Dose: 50 mg Documented by: Azathioprine (Azathioprine 50 Mg Tab) 50 mg PO ONETIME ONE Stop: 10/23/20 10:46 Last Admin: 10/23/20 11:14 Dose: 50 mg Documented by: Azathioprine (Azathioprine 50 Mg Tab) 100 mg PO BID [facility] Last Admin: 10/23/20 21:24 Dose: Not Given Documented by: Dexamethasone (Dexamethasone 10 Mg/Ml Sdv) 6 mg IVPUSH ONETIME STA Stop: 10/22/20 20:38 Last Admin: 10/22/20 21:19 Dose: 6 mg Documented by: Dexamethasone (Dexamethasone 10 Mg/Ml Sdv) 6 mg IVPUSH Q24H [facility] Stop: 10/31/20 21:01 Dexamethasone (Dexamethasone 4 Mg Tab) 6 mg PO DAILY [facility] Stop: 10/31/20 09:01 Last Admin: 10/31/20 09:56 Dose: 6 mg Documented by: Enoxaparin Sodium (Enoxaparin 40 Mg/0.4 Ml Syringe) 40 mg SUBCUT DAILY [facility] Enoxaparin Sodium (Enoxaparin 120 Mg/0.8 Ml Syringe) 110 mg SUBCUT Q12H [facility] Last Admin: 10/25/20 08:25 Dose: 110 mg Documented by: Enoxaparin Sodium (Enoxaparin 120 Mg/0.8 Ml Syringe) 110 mg SUBCUT Q12H [facility] Last Admin: 11/01/20 09:25 Dose: 110 mg Documented by: Remdesivir 200 mg/ Sodium (Chloride) 250 mls @ 250 mls/hr IV ONETIME ONE Stop: 10/22/20 20:38 Last Admin: 10/22/20 21:19 Dose: 250 mls/hr Documented by: Remdesivir 100 mg/ Sodium (Chloride) 100 mls @ 100 mls/hr IV Q24H [facility] Stop: 10/26/20 22:59 Last Admin: 10/26/20 21:19 Dose: 100 mls/hr Documented by: Sodium Chloride (Normal Saline) 100 mls @ 60 mls/hr IV ASDIRECTED [facility] Stop: 10/25/20 10:30 Last Admin: 10/25/20 10:49 Dose: 60 mls/hr Documented by: Iopamidol (Iopamidol 755 Mg/Ml 100 Ml Bottle) 100 ml IVPUSH ONETIME ONE Stop: 10/25/20 08:03 Last Admin: 10/25/20 10:49 Dose: 100 ml Documented by: Lisinopril (Lisinopril 20 Mg Tab) 20 mg PO DAILY [facility] Last Admin: 10/25/20 08:27 Dose: Not Given Documented by: Lorazepam (Lorazepam 1 Mg Tab) 1 mg PO ONETIME ONE Stop: 10/25/20 09:22 Last Admin: 10/25/20 09:37 Dose: 1 mg Documented by: Lorazepam (Lorazepam 2 Mg/Ml Sdv) 0.5 mg IVPUSH ONETIME PRN PRN Reason: SEE COMMENTS Stop: 10/25/20 18:00 Non-Formulary Medication (Glucos Sul 2kcl/Msm/Chond/C/Mn [Glucosamine Chondroitin Cap]) 2 each PO BEDTIME [facility] Potassium Chloride (Potassium Chloride 20 Meq Tab.Er) 40 meq PO ONETIME ONE Stop: 10/25/20 09:19 Last Admin: 10/25/20 09:37 Dose: 40 meq Documented by: Sodium Chloride (Sodium Chloride 0.9% 10 Ml Syringe) 10 ml FLUSH ONETIME ONE Stop: 10/25/20 08:03 Last Admin: 10/25/20 10:49 Dose: 10 ml Documented by: Sodium Phosphate (Phosphorus #1 250 Mg Tab) 250 mg PO DAILY [facility] Last Admin: 10/24/20 08:25 Dose: 250 mg Documented by: - Exam Physical Findings Comments:: General: Alert, Oriented HEENT: Pupils Equal, Mucous Membr. Moist/[place] Neck: Supple Lungs: Normal Respiratory Effort, Crackles (Bibasilar, improved) Cardiovascular: Regular Rate, Regular Rhythm GI/Abdominal Exam: Normal Bowel Sounds, Soft, Non-Tender, No Distention Extremities: Normal Inspection, Normal Range of Motion, Non-Tender, No Pedal Edema Skin: Warm, Dry, Intact Psy/Mental Status: Alert, Normal Affect, Normal Mood
== END 2020-11-05 14:13 | disposition home or self-care (01) | DRG 177 ==
LOC: JD.ED 19:52 → JD.MS 21:54
PROVIDERS: ADMIT Family Medicine; ATTEND Family Medicine
PROC: 3E0333Z Introduction of Anti-inflammatory into Peripheral Vein, Percutaneous Approach (ICD-10-PCS; principal; 2020-10-22)
PROC: XW033E5 Introduction of Remdesivir Anti-infective into Peripheral Vein, Percutaneous Approach, New Technology Group 5 (ICD-10-PCS; principal; 2020-10-22)
PROC: 8E0ZXY6 Isolation (ICD-10-PCS; principal; 2020-10-22)
DX: U07.1 COVID-19 (principal); J96.01 Acute respiratory failure with hypoxia; I26.94 Multiple subsegmental thrombotic pulmonary emboli without acute cor pulmonale; J12.82 Pneumonia due to coronavirus disease 2019; D84.9 Immunodeficiency, unspecified; M33.90 Dermatopolymyositis, unspecified, organ involvement unspecified; E87.1 Hypo-osmolality and hyponatremia; Z85.51 Personal history of malignant neoplasm of bladder; D69.6 Thrombocytopenia, unspecified; I10 Essential (primary) hypertension; E66.9 Obesity, unspecified; Z86.16 Personal history of COVID-19; Z79.899 Other long term (current) drug therapy; Z87.891 Personal history of nicotine dependence; Z68.30 Body mass index [BMI] 30.0-30.9, adult
CPT/HCPCS: 36415; 36600; 71045; 71045-26; 71275; 71275-26; 80053; 82803; 83605; 83735; 83880; 84100; 84484; 85007; 85025; 85027; 85379; 86140; 87040; 93005; 93010; 94640; 94667; 94668; 94762; 96374; 99285; 99285-25; A9270-GY; J1100; J1650; J2405; J7050; J7500; J7620-GY; J8540; Q9967